=== PATIENT | male | born 1950 | race Two or more races ===

== ENCOUNTER 2018-12-18 12:40 | Inpatient (IN) | payer OTHER ==
--- NOTE | 2018-12-18 12:56 | PDOC ---
Rapid Medical Evaluation Time Seen by Provider: 12/18/18 12:41 Medical Evaluation: 12/18/18 12:41 CC: chest pain s/p vomiting PE: sternal tenderness. ABD SNTND. Orders: cardiac w/u Patient will proceed to ED for continued evaluation. Discharge Disposition - Diagnosis Chest pain - Referrals - Patient Instructions - Post Discharge Activity
--- NOTE | 2018-12-18 13:51 | PDOC ---
History of Present Illness - General Chief Complaint: Chest Pain Stated Complaint: CHEST PAIN/ ABD PAIN Time Seen by Provider: 12/18/18 12:41 - History of Present Illness Initial Comments: 12/18/18 14:38 68 y/o M hx of HTN, HLD, gastritis s/p prostate biopsy yesterday presents to the ED today with chest pain and epigastric pain. He began having chest pain yesterday after his biopsy. Pain is located in the center of his chest and is non-radiating. Pt rates pain as 9/10. Pain was relieved with tylenol at home. He had one episode of non-bilious, non-bloody emesis this morning followed by epigastric burning pain. He was seen by his PCP who found him to be tachycardic and sent him to the ED. He denies any fevers, pleuritic chest pain, shortness of breath, hx of blood clots, recent long travel, palpitations, diaphoresis. He endorses malaise and general sensation of weakness. 12/26/18 09:47 Past History - Past Medical History Allergies/Adverse Reactions: Allergies Allergy/AdvReac Type Severity Reaction Status Date / Time No Known Allergies Allergy Verified 12/18/18 12:58 Home Medications: Ambulatory Orders Pravastatin Sodium [Pravachol -] 40 mg PO HS 12/18/18 Finasteride [Proscar -] 5 mg PO DAILY #30 tablet 12/24/18 Hydrochlorothiazide [Hctz -] 12.5 mg PO DAILY cap 12/24/18 Tamsulosin HCl [Flomax -] 0.4 mg PO BID@0830,2200 #60 cap.er.24h 12/24/18 COPD: No HTN: Yes Hypercholesterolemia: Yes Other medical history: BHP - Psycho Social/Smoking Cessation Hx Smoking History: Never smoked Have you smoked in the past 12 months: No Information on smoking cessation initiated: No Hx Alcohol Use: No Drug/Substance Use Hx: No Review of Systems - Review of Systems Constitutional: Yes: Chills. No: Fever HEENTM: No: Eye Pain Respiratory: No: Cough, Shortness of Breath Cardiac (ROS): Yes: Symptoms Reported ABD/GI: No: Blood Streaked Bowels, Diarrhea Musculoskeletal: Yes: Back Pain *Physical Exam - Vital Signs Last Vital Signs Temp Pulse Resp BP Pulse Ox 98.2 F 130 H 19 107/59 L 100 12/18/18 12:52 12/18/18 12:52 12/18/18 12:52 12/18/18 12:52 12/18/18 12:52 - Physical Exam Comments: 12/18/18 14:56 GENERAL: Awake, alert, and fully oriented, in no acute distress HEAD: No signs of trauma, normocephalic, atraumatic EYES: PERRLA, EOMI, sclera anicteric, conjunctiva clear ENT: Auricles normal inspection, hearing grossly normal, nares patent, oropharynx clear without exudates. Moist mucosa NECK: Normal ROM, supple, no lymphadenopathy, JVD, or masses LUNGS: No distress, speaks full sentences, clear to auscultation bilaterally HEART: tachycardic, normal S1 and S2, no murmurs, rubs or gallops, peripheral pulses normal and equal bilaterally. increased tenderness with palpation of the sternum. ABDOMEN: Soft, epigastric and suprapubic tenderness, normoactive bowel sounds. No guarding, no rebound. No masses EXTREMITIES : Normal inspection, Normal range of motion, no edema. No clubbing or cyanosis NEUROLOGICAL: Cranial nerves II through XII grossly intact. Normal speech, normal gait, no focal sensorimotor deficits SKIN: Warm, Dry, normal turgor, no rashes or lesions noted ED Treatment Course - LABORATORY CBC & Chemistry Diagram: 12/26/18 08:10 12/26/18 08:10 Medical Decision Making - Medical Decision Making 12/18/18 14:53 68 y/o M hx of HTN, HLD, gastritis s/p prostate biopsy yesterday presents to the ED today with chest pain and epigastric pain. EKG, cbc, cmp, blood cultures, chest x-ray, cardiac profile. ekg sinus tachycardia, possible left atrial enlargement. no ST elevations. 12/18/18 15:08 rectal temp 101.1F tylenol for pain, septic workup 12/18/18 15:08 12/18/18 16:11 CXR normal sized heart tortouous aortic arch lungs clear of infiltrates no pneumothorax. impression: normal study -Lactic acid pending. pt. currently receiving iv fluids 30cc/kg - Received Zosyn - HR currently at 115 12/18/18 16:33 Labs remarkable for lactic acid 2.3 ua: leukocyte esterase 2+ creatinine 1.9 -pt admitted for inpatient treatment 12/26/18 09:45 Discharge - Discharge Information Problems reviewed: Yes Clinical Impression/Diagnosis: Chest pain Qualifiers: Chest pain type: unspecified Qualified Code(s): R07.9 - Chest pain, unspecified Condition: Improved - Follow up/Referral - Patient Discharge Instructions - Post Discharge Activity
[2018-12-18 14:31] LABS: BASO % 0.3 % (0-2.0); EOS % 0.1 % (0-4.5); HEMATOCRIT 37.4 % (35.4-49); HEMOGLOBIN 12.3 GM/dL (11.7-16.9); LYMPH % 1.7 % (8-40); MCH 26.1 pg (25.7-33.7); MCHC 32.8 g/dl (32.0-35.9); MEAN CELL VOLUME 79.4 fl (80-96); MEAN PLT VOLUME 8.6 fl (7.5-11.1); MONO % 2.3 % (3.8-10.2); NEUT % 95.6 % (42.8-82.8); PLATELET COUNT 230 K/MM3 (134-434); RBC 4.71 M/mm3 (4.00-5.60); RDW 14.8 % (11.9-15.9)
--- NOTE | 2018-12-18 14:42 | PDOC ---
Documentation entered by Alexandria Bell SCRIBE, acting as scribe for Elmo Piña MD. Elmo Piña MD: This documentation has been prepared by the Arabella armstrong Adrianna, SCRIBE, under my direction and personally reviewed by me in its entirety. I confirm that the documentation accurately reflects all work, treatment, procedures, and medical decision making performed by me. Attending Attestation - Resident Resident Name: AshleyJjgirmaalyson - ED Attending Attestation I have performed the following: I have examined & evaluated the patient, The case was reviewed & discussed with the resident, I agree w/resident's findings & plan, Exceptions are as noted - HPI HPI: The patient is a 68 year old male, with a significant PMH of hypercholesterolemia, hypertension, and gastritis (s/p prostate biopsy yesterday ), who presents to the ED for evaluation of chest pain for 2 days. Patient notes he developed retrosternal chest pain yesterday after his procedure. His pain does not radiate, is unaffected by inspiration, and is exacerbated with palpation (no pleuritic or exertional component). Patient reports one episodes of nausea and NBNB vomit this morning, followed by epigastric pain. He followed up with his PCP for this complaint, where he was found to be tachycardic and was sent to the ED for further evaluation. Patient endorses malaise, weakness, chills, and moderate dysuria. Denies fever, SOB, diarrhea. Allergies: NKA, NKDA Surgical History: Transurethral resection Social History: Denies EtOH, tobacco, or illicit drug use PCP: Dr. Bass - Physicial Exam PE: Vitals: Triage Vital signs reviewed General Appearance: no acute distress, well nourished well developed, Chest Wall: +Reproducible chest wall tenderness to palpation, Cardiac: +Tachycardic. Regular rhythm, no murmurs, no rubs, no gallops, Lungs: Clear to auscultation bilateral, good air movement bilaterally, Abdomen: Soft, nondistended, nontender to palpation Extremities: Full range of motion to all extremities, no cyanosis, clubbing, or edema Skin: Warm and dry, no rashes or lesions, no petechiae Neuro: AOX3; Cranial Nerves 2-12 grossly c intact, Strength intact to all extremities, Sensation intact to all extremities, Psych: normal mood, normal affect - Medical Decision Making 68 year old male, with history of hypercholesterolemia, hypertension, and gastritis (s/p prostate biopsy yesterday), presents with chest pain. Plan: cbc, cmp, blood cultures, cardiac profile, EKG, CXR. Administer fluids. Reassess. 12/18/18 17:01 Patient presents with sepsis likely secondary to UTI from prostate biopsy yesterday Zosyn ordered 30 cc/kg ordered lactic ordered will admit to medicine for further management. Heart Score/ECG Review - ECG Impressions Comment:: EKG performed at 12:35:20 demonstrates rate of 121bpm, sinus tachycardia, possible left atrial enlargement. ED Treatment Course - LABORATORY CBC & Chemistry Diagram: 12/18/18 13:59 12/18/18 13:59 - ADDITIONAL ORDERS Additional order review: Laboratory Results 12/18/18 12/18/18 12/18/18 13:59 13:59 13:59 PT with INR 14.30 H INR 1.21 H Sodium 140 Potassium 4.0 Chloride 105 Carbon Dioxide 26 Anion Gap 9 BUN 29.4 H Creatinine 1.9 H Est GFR (CKD-EPI)AfAm 40.50 Est GFR (CKD-EPI)NonAf 34.94 Random Glucose 103 Calcium 9.0 Magnesium 1.9 Total Bilirubin 0.5 AST 63 H ALT 69 H Alkaline Phosphatase 70 Creatine Kinase 119 Troponin I < 0.02 Total Protein 7.1 Albumin 3.8 Lipase 151 12/18/18 13:59 RBC 4.71 MCV 79.4 L MCHC 32.8 RDW 14.8 MPV 8.6 Neutrophils % 95.6 H Lymphocytes % 1.7 L Monocytes % 2.3 L Eosinophils % 0.1 Basophils % 0.3 - RADIOLOGY Radiograph Interpretation: EXAM#: TYPE/EXAM: RESULT: [id number] RAD/CHEST PA LAT Chest PA and lateral HISTORY: Chest pain IMPRESSION: Normal study. Reported By: Pan Cummings MD 12/18/18 15:25 - Medications Given in the ED: ED Medications Discontinued Medications Generic Name Dose Route Start Last Admin Trade Name Freq PRN Reason Stop Dose Admin Acetaminophen 1,000 mg 12/18/18 15:09 12/18/18 15:18 Ofirmev Injection - IVPB 12/18/18 15:10 1,000 mg ONCE ONE Administration
[2018-12-18 14:53] LABS: INR 1.21 (0.83-1.09); PROTHROMBIN TIME (PATIENT) 14.3 SEC (9.7-13.0)
[2018-12-18 14:59] LABS: ALBUMIN 3.8 g/dl (3.4-5.0); BILIRUBIN,TOTAL 0.5 mg/dL (0.2-1); BLOOD UREA NITROGEN 29.4 mg/dL (7-18); CREATININE 1.9 mg/dL (0.55-1.3); MAGNESIUM 1.9 mg/dL (1.8-2.4); TOT PROT 7.1 g/dl (6.4-8.2)
[2018-12-18] MEDS ORDERED: SODIUM CHLORIDE 2,177 ML IV ONE (15:01)
[2018-12-18] MEDS ORDERED: PIPERACILLIN/TAZOB 3.375 GM 3.375 GM in DEXTROSE 5%-WATER - 50 ML IVPB ONE (15:03)
[2018-12-18] MEDS ORDERED: ACETAMINOPHEN 1000 MG/100 ML VIAL (NON FORMULARY) IVPB ONE (15:09)
[2018-12-18] MEDS ORDERED: PIPERACILLIN/TAZOB 3.375 GM 3.375 GM/50 ML BAG IVPB ONE (15:18)
[2018-12-18] MEDS ORDERED: ACETAMINOPHEN INJECTION 100 ML IVPB ONE (15:18)
[2018-12-18 15:46] LABS: ANISOCYTOSIS 0; MACROCYTOSIS 0; PLATELET ESTIMATE NORMAL
[2018-12-18 16:13] LABS: EPI CELLS 6.3 /HPF (0-5/HPF); HYALINE CASTS 30 /lpf (0-8); URINE APPEARANCE CLOUDY; URINE BACTERIA 8.4 /hpf (NEGATIVE); URINE BILIRUBIN 1+ (NEGATIVE); URINE COLOR DK YELLOW; URINE GLUCOSE (UA) NEGATIVE (NEGATIVE); URINE KETONE TRACE (NEGATIVE); URINE LEUK ESTERASE 2+ (NEGATIVE); URINE NITRITE NEGATIVE (NEGATIVE); URINE PROTEIN 1+ (NEGATIVE); URINE RBC 131 /hpf (0-4); URINE UROBILINOGEN 0.2 mg/dL (0.2-1.0); URINE WBC 48 /hpf (0-5)
--- NOTE | 2018-12-18 17:16 | HP ---
Addendum entered and electronically signed by Silvestre Quinn, RESIDENT 12/18/18 21:03: ADDENDUM: ECG reviewed at time of admission: NSR @121bpm, normal axis, delayed R -wave progression, no TWI, no FERNANDO/STD. QTc 448ms CXR also reviewed Original Note: <Silvestre Quinn - Last Filed: 12/18/18 20:55> CHIEF COMPLAINT: Chills PCP: Dr. Dmitri Lema HISTORY OF PRESENT ILLNESS: 68yo M with h/o of HTN, HLD, and recent prostate biopsy (unknown reasoning reported by patient; poor memory of who performed) who presents today with 1 day of worsening chills and back pain. Pt reports he was in his usual state of health 2 days prior. Since his biopsy he developed severe chills without any recorded fevers. He started to develop back pain R>L and sought further investigation in the ER at this point. Pt reports he was given post-procedure antibiotics (which he has at bedside) which compromises of Bactrim and Flagyl. He took his first dose of both prior to the onset of symptoms. Pt denies any trouble with urination and denies any dysuria, but has been experiencing polyuria. Pt denies any cough, shortness of breath, chest pain, palpitations, abdominal pain, dysuria, hematuria, diarrhea/constipation, lower extremity edema. Of note, pt does not remember his home medications, however reports he takes one pill daily for HTN and one pill daily for cholesterol. He reports his is coming with his medications at time of exam. PAST MEDICAL HISTORY: As above PAST SURGICAL HISTORY: Prostate biopsy (12/17) Social History: Smoking: Denies Alcohol: Denies Drugs: Denies Lives at home with ; independent in ADLs Family History: No history of prostate Ca Allergies No Known Allergies Allergy (Verified 12/18/18 12:58) HOME MEDICATIONS: REVIEW OF SYSTEMS As per HPI PHYSICAL EXAMINATION Vital Signs - 24 hr 12/18/18 12/18/18 12:52 15:56 Temperature 98.2 F Pulse Rate 130 H Pulse Rate [ 117 H Apical] Respiratory 19 16 Rate Blood Pressure 107/59 L Blood Pressure 107/62 [Right Arm] O2 Sat by Pulse 100 100 Oximetry (%) GENERAL: Awake, alert, and fully oriented, in no acute distress. HEENT: NC/AT, EOMI, AYAN, sclera anicteric, MMM NECK: No JVD. LUNGS: CTA bilaterally. No wheezes, and no crackles. No accessory muscle use. On RA HEART: Tachycardic with regular rhythm, normal S1 and S2 without murmur ABDOMEN: Soft, nondistended, slight suprapubic tenderness, normoactive bowel sounds, no guarding, No hepatomegaly RECTAL: No hemorrhoids or fissures appreciated, no masses, slight prostate enlargment without nodules appreciated and nontender MUSCULOSKELETAL: + CVA tenderness. EXTREMITIES: 2+ pulses, warm, well-perfused. No calf tenderness. No peripheral edema. PSYCHIATRIC: Cooperative. Good eye contact. Appropriate mood and affect. SKIN: Warm, dry, no rashes or lesions noted, normal capillary refill. Laboratory Results - last 24 hr 12/18/18 12/18/18 12/18/18 13:59 13:59 13:59 WBC 19.0 H RBC 4.71 Hgb 12.3 Hct 37.4 MCV 79.4 L MCH 26.1 MCHC 32.8 RDW 14.8 Plt Count 230 MPV 8.6 Absolute Neuts (auto) 18.2 H Neutrophils % 95.6 H Neutrophils % (Manual) 93.0 H Band Neutrophils % 0.0 Lymphocytes % 1.7 L Lymphocytes % (Manual) 3.0 L Monocytes % 2.3 L Monocytes % (Manual) 1 L Eosinophils % 0.1 Eosinophils % (Manual) 0.0 Basophils % 0.3 Basophils % (Manual) 1.0 Myelocytes % (Man) 0 Promyelocytes % (Man) 0 Blast Cells % (Manual) 0 Nucleated RBC % 0 Metamyelocytes 0 Hypochromia 0 Platelet Estimate Normal Polychromasia 0 Poikilocytosis 0 Anisocytosis 0 Microcytosis 0 Macrocytosis 0 PT with INR INR Sodium 140 Potassium 4.0 Chloride 105 Carbon Dioxide 26 Anion Gap 9 BUN 29.4 H Creatinine 1.9 H Est GFR (CKD-EPI)AfAm 40.50 Est GFR (CKD-EPI)NonAf 34.94 Random Glucose 103 Lactic Acid Calcium 9.0 Magnesium 1.9 Total Bilirubin 0.5 AST 63 H ALT 69 H Alkaline Phosphatase 70 Creatine Kinase 119 Troponin I < 0.02 Total Protein 7.1 Albumin 3.8 Lipase 151 Urine Color Urine Appearance Urine pH Ur Specific [place] Urine Protein Urine Glucose (UA) Urine Ketones Urine Blood Urine Nitrite Urine Bilirubin Urine Urobilinogen Ur Leukocyte Esterase Urine WBC (Auto) Urine RBC (Auto) Urine Casts (Auto) U Epithel Cells (Auto) U Sm Round Cell (Auto) Urine Bacteria (Auto) 12/18/18 12/18/18 12/18/18 13:59 15:31 15:52 WBC RBC Hgb Hct MCV MCH MCHC RDW Plt Count MPV Absolute Neuts (auto) Neutrophils % Neutrophils % (Manual) Band Neutrophils % Lymphocytes % Lymphocytes % (Manual) Monocytes % Monocytes % (Manual) Eosinophils % Eosinophils % (Manual) Basophils % Basophils % (Manual) Myelocytes % (Man) Promyelocytes % (Man) Blast Cells % (Manual) Nucleated RBC % Metamyelocytes Hypochromia Platelet Estimate Polychromasia Poikilocytosis Anisocytosis Microcytosis Macrocytosis PT with INR 14.30 H INR 1.21 H Sodium Potassium Chloride Carbon Dioxide Anion Gap BUN Creatinine Est GFR (CKD-EPI)AfAm Est GFR (CKD-EPI)NonAf Random Glucose Lactic Acid 2.3 H* Calcium Magnesium Total Bilirubin AST ALT Alkaline Phosphatase Creatine Kinase Troponin I Total Protein Albumin Lipase Urine Color Dk yellow Urine Appearance Cloudy Urine pH 7.0 Ur Specific [place] 1.019 Urine Protein 1+ H Urine Glucose (UA) Negative Urine Ketones Trace H Urine Blood 2+ H Urine Nitrite Negative Urine Bilirubin 1+ H Urine Urobilinogen 0.2 Ur Leukocyte Esterase 2+ H Urine WBC (Auto) 48 Urine RBC (Auto) 131 Urine Casts (Auto) 30 U Epithel Cells (Auto) 6.3 U Sm Round Cell (Auto) Urine Bacteria (Auto) 8.4 ASSESSMENT/PLAN: Severe sepsis 2/2 to pyelonephritis R/o Prostatitis Acute kidney injury Lactic acidosis Mild Transaminitis HTN HLD --Due to recent prostate biopsy and Bactrim/Flagyl use will cover with Meropenem until ID consultation --CrCl 37 so 1gm q12h for acute complicated pyelonephritis --Obtain CT A/P without contrast for r/o any prostate abnormalities vs. abscess (unable to use contrast due to MADISYN) --IVF: LR@100cc/hr after 30cc/kg/hr bolus; can bolus as needed --Trend lactate until normal --ID consultation ordered --Urology consulted --MADISYN possibly multifactorial with Bactrim use and heavily with pre-renal azotemia --Urine studies ordered --Will evaluate for hydronephrosis/obstructive changes with CT scan --Transaminitis possibly due to drug interactions however will trend --Will hold HLD medication at this point --Hold antihypertensives for now Patient is getting his medications from his and will input the medications later: takes one pill for HTN and one pill for cholesterol FEN: Fluids: - LR@100cc/hr bolus PRN Electrolyte abnormalities: None currently Nutrition: Cholesterol and Na controlled diet PPX: DVT - Heparin TID GI - Not indicated Dispo: Admit M/S Case discussed with ER physicians Silvestre Quinn, - IM PGY-3 Visit type - Emergency Visit Emergency Visit: Yes ED Registration Date: 12/18/18 Care time: The patient presented to the Emergency Department on the above date and was hospitalized for further evaluation of their emergent condition. - New Patient This patient is new to me today: Yes Date on this admission: 12/18/18 - Critical Care Critical Care patient: No ATTENDING PHYSICIAN STATEMENT I saw and evaluated the patient. I reviewed the resident's note and discussed the case with the resident. I agree with the resident's findings and plan as documented. SUBJECTIVE: OBJECTIVE: ASSESSMENT AND PLAN: <Gordon Jackson - Last Filed: 12/19/18 13:19> Seen and examined; agree with resident history and physical as documented aside from as supplemented below. Independently verified all historical and PE findings; independently reviewed all labs and vitals. He meets inpatient criteria. 60 minutes spent in this encounter including ongoing discussion with the resident. Has ongoing pelvic pain and is s/p prostate biopsy. Sepsis likely secondary to urinary source is evident with positive UA and thickened bladder. He has ongoing BPH, but was unsure who did the bx as well as the indication. Hasn't seen anyone else for this, nothing makes it better or worse, main meds help his pain briefly but it returns. 10 sys ROS done and negative aside from HPI PMH, PSH, FH, SH reviewed FH negative for anesthesia intolerance or sudden cardiac O: VS, labs, imaging all idependently reviewed Mild distress, diaphoretic, in bed NC AT EOMI PERRLA Trachea midline, no neck masses Tachycardic, no tennille murmurs NT ND +BS CN2-12 wnl, no fnd Normal mood, appropriate behavior EKG reviewed CT done without contrast 2/2 MADISYN; can consider contrasted study when results available A/P: Patient presents with severe sepsis secondary to urinary source; he is at risk for resistant organisms due to recent instrumentation. He is critically ill due to this. Problems include: -Sepsis secondary to urinary source with recent instrumentation to prostate, r/ o prostatitis -MADISYN -Thickened urinary bladder -Underlying BPH -Transaminitis -Hx HTN -Hx HLD -Lactic Acidosis (resolving) Agressive isotonic fluids with broad spectrum abx and ID consult/uro consult Low threshold to upgrade LOC Trend down lactate Hold home antihypertensives Bladderscan and mistry if needed ATTENDING PHYSICIAN STATEMENT I saw and evaluated the patient. I reviewed the resident's note and discussed the case with the resident. I agree with the resident's findings and plan as documented. SUBJECTIVE: OBJECTIVE: ASSESSMENT AND PLAN:
[2018-12-18] MEDS ORDERED: MEROPENEM 1 GM in DEXTROSE 5%-WATER 100 ML IVPB SCH (17:45)
[2018-12-18] MEDS ORDERED: ACETAMINOPHEN 325 MG TABLET (FP) PO PRN (17:55)
[2018-12-18] MEDS: LACTATED RINGERS SOLUTION 1,000 ML/1,000 ML INFUS.BAG IV SCH ×2 (19:34→23:44)
[2018-12-18] MEDS: MEROPENEM 1 GM in DEXTROSE 5%-WATER 100 ML IVPB SCH (20:29)
[2018-12-18] MEDS ORDERED: LACTATED RINGERS SOLUTION 1,000 ML/1,000 ML INFUS.BAG IV SCH (21:15)
[2018-12-18] MEDS ORDERED: ACETAMINOPHEN 1000 MG/100 ML VIAL (NON FORMULARY) IVPB PRN (22:31)
[2018-12-18] MEDS ORDERED: SODIUM CHLORIDE 1,000 ML IV STA (22:35)
[2018-12-18] MEDS: HEPARIN NA (PORCINE) 5,000 UNITS/ML 1ML VIAL SQ SCH (22:56)
[2018-12-18] MEDS ORDERED: LACTATED RINGERS SOLUTION 1,000 ML/1,000 ML INFUS.BAG IV ONE (23:42)
[2018-12-18] MEDS ORDERED: LACTATED RINGERS SOLUTION 1000 ML INFUS.BAG IV ONE (23:50)
[2018-12-19 05:23] VITALS: BMI 28.5
[2018-12-19] MEDS ORDERED: DEXTROSE 5%-WATER 100 ML IVPB ONE (06:31)
[2018-12-19] MEDS ORDERED: MEROPENEM 1 GM VIAL (RESTRICTED TO ID) IVPB ONE (06:31)
[2018-12-19] MEDS: HEPARIN NA (PORCINE) 5,000 UNITS/ML 1ML VIAL SQ SCH ×3 (06:33→22:06)
[2018-12-19] MEDS: MEROPENEM 1 GM in DEXTROSE 5%-WATER 100 ML IVPB SCH (06:33)
[2018-12-19 07:59] LABS: BASO % 0.2 % (0-2.0); HEMATOCRIT 32.3 % (35.4-49); HEMOGLOBIN 10.8 GM/dL (11.7-16.9); LYMPH % 4.5 % (8-40); MCH 26.2 pg (25.7-33.7); MCHC 33.4 g/dl (32.0-35.9); MEAN CELL VOLUME 78.5 fl (80-96); MEAN PLT VOLUME 8.4 fl (7.5-11.1); MONO % 4.4 % (3.8-10.2); NEUT % 90.9 % (42.8-82.8); PLATELET COUNT 193 K/MM3 (134-434); RBC 4.12 M/mm3 (4.00-5.60); RDW 14.8 % (11.9-15.9); WHITE BLOOD COUNT 16.2 K/mm3 (4.0-10.0)
[2018-12-19 08:27] LABS: BILIRUBIN,TOTAL 0.5 mg/dL (0.2-1); BLOOD UREA NITROGEN 21.5 mg/dL (7-18); CALCIUM 8.4 mg/dL (8.5-10.1); CREATININE 1.3 mg/dL (0.55-1.3); MAGNESIUM 1.7 mg/dL (1.8-2.4); PHOSPHOROUS 2.6 mg/dL (2.5-4.9); POTASSIUM 3.7 mmol/L (3.5-5.1); TOT PROT 5.9 g/dl (6.4-8.2)
[2018-12-19] MEDS ORDERED: TAMSULOSIN HCL 0.4 MG CAP PO SCH (08:30)
--- NOTE | 2018-12-19 08:39 | PN ---
Addendum entered and electronically signed by Silvestre Quinn, RESIDENT 12/19/18 11:09: EDIT: Hypomagnesemia on labs today: repleted 800 Mag-Ox PO once Original Note: Progress Note (short form) - Note Progress Note: HPI: Pt febrile last night with 500cc boluses as needed for soft pressures. Pt today awake and alert reports feeling better and denies any rigors or chills. Denies any shortness of breath, chest pain, palpitations. Endorses slight superpubic pain Vital Signs Temperature 99.7 F H 12/19/18 10:33 Pulse Rate 108 H 12/19/18 10:33 Respiratory Rate 18 12/19/18 10:33 Blood Pressure 126/77 12/19/18 10:33 O2 Sat by Pulse Oximetry (%) 94 L 12/19/18 09:00 GENERAL: Awake, alert, and fully oriented, in no acute distress. HEENT: NC/AT, EOMI, AYAN, sclera anicteric, MMM NECK: No JVD. LUNGS: CTA bilaterally. No wheezes, and no crackles. No accessory muscle use. On RA HEART: Tachycardic with regular rhythm, normal S1 and S2 without murmur ABDOMEN: Soft, nondistended, slight suprapubic tenderness, normoactive bowel sounds, no guarding, No hepatomegaly MUSCULOSKELETAL: + CVA tenderness. EXTREMITIES: 2+ pulses, warm, well-perfused. No calf tenderness. No peripheral edema. PSYCHIATRIC: Cooperative. Good eye contact. Appropriate mood and affect. SKIN: Warm, dry, no rashes or lesions noted, normal capillary refill. Microbiology 12/18/18 15:52 Urine - Urine Clean Catch Urine Culture - Preliminary Lactose Fermenting Neg Bacilli 12/18/18 15:31 Blood - Peripheral Venous Blood Culture - Preliminary Pending Organism Active Medications Heparin Sodium (Porcine) (Heparin -) 5,000 unit SQ TID JAYLA Last Admin: 12/19/18 06:33 Dose: 5,000 unit Lactated Ringer's (Lactated Ringers Solution) 1,000 ml in 1,000 mls @ 100 mls/ hr IV ASDIR JAYLA Last Admin: 12/18/18 23:44 Dose: 100 mls/hr Meropenem 1 gm/ Dextrose 100 mls @ 200 mls/hr IVPB Q12H JAYLA Pantoprazole Sodium (Protonix -) 20 mg PO DAILY [facility] Last Admin: 12/19/18 10:17 Dose: 20 mg Tamsulosin HCl (Flomax -) 0.4 mg PO DAILY@0830 [facility] Last Admin: 12/19/18 09:00 Dose: 0.4 mg A/P: Severe sepsis 2/2 Prostatitis (improving) Gram negative bacteremia Acute kidney injury (improving) Lactic acidosis (resolving) Mild Transaminitis HTN HLD --Gram negative bacilli growing in BCx --Meropenem on board originally dose adjusted for initial CrCl --ID consult appreciated --LR@100cc/hr; bolus PRN --Lactic acid resolving --CT A/P reviewed: edema around prostate (? if partially due to recent procedure ) and thickened bladder wall without hydronephrosis noted --Urology consult appreciated --MADISYN resolving currently with fluid: likely prerenal azotemia 2/2 to infection --Urine studies resolved --Transaminitis noted to be due to fatty liver disease as seen on CT --Continue holding statin and anti-hypertensives --Can restart hemodynamics allowing FEN: Fluids: - LR@100cc/hr bolus PRN Electrolyte abnormalities: None currently Nutrition: Cholesterol and Na controlled diet PPX: DVT - Heparin TID GI - Not indicated Dispo: Awaiting culture sensitivities. Case discussed with Dr. Manuel Quinn, DO - IM PGY-3 <Silvestre Quinn - Last Filed: 12/19/18 11:06> - Note Progress Note: Seen and examined; agree with resident history and physical as documented aside from as supplemented below. Independently verified all historical and PE findings; independently reviewed all labs and vitals. He meets inpatient criteria. 60 minutes spent in this encounter including ongoing discussion with the resident. Pain is improved with downtrending lactate; denies nausea, vomitting, CP, SOB. Tachycardia improved. 10 sys ROS done and negative aside from HPI O: VS, labs, imaging all idependently reviewed Mild distress, diaphoretic, in bed NC AT EOMI PERRLA Trachea midline, no neck masses Tachycardic, no tennille murmurs NT ND +BS CN2-12 wnl, no fnd Normal mood, appropriate behavior EKG reviewed CT done without contrast 2/2 MADISYN; can consider contrasted study when results available A/P: Patient presents with severe sepsis secondary to urinary source; he is at risk for resistant organisms due to recent instrumentation. He is critically ill due to this. Problems include: -Sepsis secondary to urinary source with recent instrumentation to prostate, r/ o prostatitis -Gram negative bacteremia -MADISYN -Thickened urinary bladder -Underlying BPH -Transaminitis -Hx HTN -Hx HLD -Lactic Acidosis (resolved) Followup subspecialty consults; appreciate expert care Increased tams and added finasteride Trend CMP consult GI if needed <Gordon Jackson - Last Filed: 12/19/18 13:23>
[2018-12-19] MEDS ORDERED: MAGNESIUM OXIDE 400 MG TABLET (FP) PO ONE (09:30)
--- NOTE | 2018-12-19 09:55 | EKG ---
Test Reason : Blood Pressure : / mmHG Vent. Rate : 121 BPM Atrial Rate : 121 BPM P-R Int : 128 ms QRS Dur : 070 ms QT Int : 316 ms P-R-T Axes : 047 -15 045 degrees QTc Int : 448 ms SINUS TACHYCARDIA POSSIBLE LEFT ATRIAL ENLARGEMENT BORDERLINE ECG NO PREVIOUS ECGS AVAILABLE Confirmed by SHRUTHI WHARTON, NASIM ([id number]) on 12/19/2018 9:54:47 AM Referred By: Confirmed By:NASIM HAWKINS MD
--- NOTE | 2018-12-19 10:11 | CONSULT ---
Consultation: REQUESTING PROVIDER: Dr. Quinn CONSULT REQUEST: We have been asked to medically evaluate this patient for MADISYN. HISTORY OF PRESENT ILLNESS: Pt. is a 68 y.o. M w/ PMHx. of HTN, HLD, BPH, and GERD presenting s/p prostate biopsy with chills. Pt. states that on 12/17 he had the biopsy and was given antibiotics (Flagyl and Bactrim) which he took. The patient then developed chills the next day and came to the ER where he had one episode of NBNB emesis ("a lot"). Pt. developed non-radiating sub-sternal chest pain reproducible on contact on 12/17; has since gotten slightly better. Pt. denies diarrhea but endorses have 5 bowel movements yesterday. Pt. endorses increased pressure behind the eyes without headache and increased frequency of urination. Pt. states he has back pain along his spine but was non-specific in describing the pain. Pt. denies any history of ever having a UTI. Pt. denies shortness of breath, hematuria, dysuria, constipation or current nausea. REVIEW OF SYSTEMS: CONSTITUTIONAL: fever, chills, Absent: diaphoresis, generalized weakness, malaise, loss of appetite, weight change HEENT: eye pain Absent: rhinorrhea, nasal congestion, throat pain, throat swelling, difficulty swallowing, mouth swelling, , ear pain, visual changes CARDIOVASCULAR: chest pain Absent: syncope, palpitations, irregular heart rate, lightheadedness, peripheral edema RESPIRATORY: Absent: cough, shortness of breath, dyspnea with exertion, orthopnea, wheezing, stridor, hemoptysis GASTROINTESTINAL: abdominal pain, vomiting (one episode) Absent: abdominal distension, nausea, diarrhea, constipation, melena, hematochezia GENITOURINARY: frequency on presentation but no longer Absent: dysuria, urgency, hesitancy, hematuria, flank pain, genital pain MUSCULOSKELETAL: back pain Absent: myalgia, arthralgia, joint swelling,neck pain SKIN: Absent: rash, itching, pallor HEMATOLOGIC/IMMUNOLOGIC: Absent: easy bleeding, easy bruising, lymphadenopathy, frequent infections ENDOCRINE: Absent: unexplained weight gain, unexplained weight loss, heat intolerance, cold intolerance NEUROLOGIC: Absent: headache, focal weakness or paresthesias, dizziness, unsteady gait, seizure, mental status changes, bladder or bowel incontinence PSYCHIATRIC: Absent: anxiety, depression, suicidal or homicidal ideation, hallucinations. PHYSICAL EXAMINATION Vital Signs - 24 hr 12/18/18 12/18/18 12/18/18 12:52 15:56 16:00 Temperature 98.2 F Pulse Rate 130 H Pulse Rate [ 117 H 108 H Apical] Respiratory 19 16 16 Rate Blood Pressure 107/59 L Blood Pressure 107/62 101/72 [Right Arm] O2 Sat by Pulse 100 100 100 Oximetry (%) 12/18/18 12/18/18 12/18/18 17:00 18:55 21:00 Temperature 97.9 F Pulse Rate Pulse Rate [ 82 85 Apical] Respiratory 16 16 Rate Blood Pressure Blood Pressure 95/60 103/58 L [Right Arm] O2 Sat by Pulse 100 100 94 L Oximetry (%) 12/18/18 12/18/18 12/18/18 21:05 22:00 22:32 Temperature 102.9 F H 99.6 F Pulse Rate 125 H 122 H Pulse Rate [ Apical] Respiratory 24 H 22 H Rate Blood Pressure 98/51 L 99/54 L Blood Pressure [Right Arm] O2 Sat by Pulse 94 L Oximetry (%) 12/18/18 12/19/18 12/19/18 23:41 02:00 03:54 Temperature 98.4 F 100.3 F H 99.2 F Pulse Rate 112 H 111 H 112 H Pulse Rate [ Apical] Respiratory 20 20 20 Rate Blood Pressure 113/63 98/52 L 123/73 Blood Pressure [Right Arm] O2 Sat by Pulse Oximetry (%) 12/19/18 07:00 Temperature 99.1 F Pulse Rate 112 H Pulse Rate [ Apical] Respiratory 20 Rate Blood Pressure 133/73 Blood Pressure [Right Arm] O2 Sat by Pulse Oximetry (%) GENERAL: Awake, alert, oriented, in no acute distress. HEAD: Normal with no signs of trauma. EYES: Extraocular movements intact, sclera anicteric, conjunctiva clear. EARS, NOSE, THROAT: Ears normal, nares patent, oropharynx clear without exudates. Moist mucous membranes. NECK: Normal range of motion, supple without lymphadenopathy, JVD, or masses. LUNGS: Breath sounds equal, clear to auscultation bilaterally. No wheezes, and no crackles. No accessory muscle use. HEART: Regular rate and rhythm, normal S1 and S2 without murmur, center of sternum tender to palpation ABDOMEN: Soft, suprapubic tenderness, not distended, normoactive bowel sounds, no guarding, no rebound MUSCULOSKELETAL: Normal range of motion at all joints. No bony deformities or tenderness. No CVA tenderness. UPPER EXTREMITIES: warm, well-perfused. No cyanosis. No clubbing. Cap refill <2 seconds. No peripheral edema. LOWER EXTREMITIES: 2+ dorsal pedal pulses, warm, well-perfused. No calf tenderness. No peripheral edema. NEUROLOGICAL: Cranial nerves II-XII intact. Normal speech. PSYCHIATRIC: Cooperative. Good eye contact. Appropriate mood and affect. SKIN: Warm, dry, normal turgor, no rashes or lesions noted. Laboratory Results - last 24 hr 12/18/18 12/18/18 12/18/18 13:59 13:59 13:59 WBC 19.0 H RBC 4.71 Hgb 12.3 Hct 37.4 MCV 79.4 L MCH 26.1 MCHC 32.8 RDW 14.8 Plt Count 230 MPV 8.6 Absolute Neuts (auto) 18.2 H Neutrophils % 95.6 H Neutrophils % (Manual) 93.0 H Band Neutrophils % 0.0 Lymphocytes % 1.7 L Lymphocytes % (Manual) 3.0 L Monocytes % 2.3 L Monocytes % (Manual) 1 L Eosinophils % 0.1 Eosinophils % (Manual) 0.0 Basophils % 0.3 Basophils % (Manual) 1.0 Myelocytes % (Man) 0 Promyelocytes % (Man) 0 Blast Cells % (Manual) 0 Nucleated RBC % 0 Metamyelocytes 0 Hypochromia 0 Platelet Estimate Normal Polychromasia 0 Poikilocytosis 0 Anisocytosis 0 Microcytosis 0 Macrocytosis 0 PT with INR INR Sodium 140 Potassium 4.0 Chloride 105 Carbon Dioxide 26 Anion Gap 9 BUN 29.4 H Creatinine 1.9 H Est GFR (CKD-EPI)AfAm 40.50 Est GFR (CKD-EPI)NonAf 34.94 Random Glucose 103 Lactic Acid Calcium 9.0 Phosphorus Magnesium 1.9 Total Bilirubin 0.5 AST 63 H ALT 69 H Alkaline Phosphatase 70 Creatine Kinase 119 Troponin I < 0.02 Total Protein 7.1 Albumin 3.8 Lipase 151 Urine Color Urine Appearance Urine pH Ur Specific [place] Urine Protein Urine Glucose (UA) Urine Ketones Urine Blood Urine Nitrite Urine Bilirubin Urine Urobilinogen Ur Leukocyte Esterase Urine WBC (Auto) Urine RBC (Auto) Urine Casts (Auto) U Epithel Cells (Auto) U Sm Round Cell (Auto) Urine Bacteria (Auto) Ur Random Creatinine Ur Random Urea Nitrogn 12/18/18 12/18/18 12/18/18 13:59 15:31 15:52 WBC RBC Hgb Hct MCV MCH MCHC RDW Plt Count MPV Absolute Neuts (auto) Neutrophils % Neutrophils % (Manual) Band Neutrophils % Lymphocytes % Lymphocytes % (Manual) Monocytes % Monocytes % (Manual) Eosinophils % Eosinophils % (Manual) Basophils % Basophils % (Manual) Myelocytes % (Man) Promyelocytes % (Man) Blast Cells % (Manual) Nucleated RBC % Metamyelocytes Hypochromia Platelet Estimate Polychromasia Poikilocytosis Anisocytosis Microcytosis Macrocytosis PT with INR 14.30 H INR 1.21 H Sodium Potassium Chloride Carbon Dioxide Anion Gap BUN Creatinine Est GFR (CKD-EPI)AfAm Est GFR (CKD-EPI)NonAf Random Glucose Lactic Acid 2.3 H* Calcium Phosphorus Magnesium Total Bilirubin AST ALT Alkaline Phosphatase Creatine Kinase Troponin I Total Protein Albumin Lipase Urine Color Dk yellow Urine Appearance Cloudy Urine pH 7.0 Ur Specific [place] 1.019 Urine Protein 1+ H Urine Glucose (UA) Negative Urine Ketones Trace H Urine Blood 2+ H Urine Nitrite Negative Urine Bilirubin 1+ H Urine Urobilinogen 0.2 Ur Leukocyte Esterase 2+ H Urine WBC (Auto) 48 Urine RBC (Auto) 131 Urine Casts (Auto) 30 U Epithel Cells (Auto) 6.3 U Sm Round Cell (Auto) [employer] Supervisor Urine Bacteria (Auto) 8.4 Ur Random Creatinine Ur Random Urea Nitrogn 12/18/18 12/19/18 12/19/18 18:20 04:50 04:50 WBC RBC Hgb Hct MCV MCH MCHC RDW Plt Count MPV Absolute Neuts (auto) Neutrophils % Neutrophils % (Manual) Band Neutrophils % Lymphocytes % Lymphocytes % (Manual) Monocytes % Monocytes % (Manual) Eosinophils % Eosinophils % (Manual) Basophils % Basophils % (Manual) Myelocytes % (Man) Promyelocytes % (Man) Blast Cells % (Manual) Nucleated RBC % Metamyelocytes Hypochromia Platelet Estimate Polychromasia Poikilocytosis Anisocytosis Microcytosis Macrocytosis PT with INR INR Sodium Potassium Chloride Carbon Dioxide Anion Gap BUN Creatinine Est GFR (CKD-EPI)AfAm Est GFR (CKD-EPI)NonAf Random Glucose Lactic Acid 2.0 Calcium Phosphorus Magnesium Total Bilirubin AST ALT Alkaline Phosphatase Creatine Kinase Troponin I Total Protein Albumin Lipase Urine Color Urine Appearance Urine pH Ur Specific [place] Urine Protein Urine Glucose (UA) Urine Ketones Urine Blood Urine Nitrite Urine Bilirubin Urine Urobilinogen Ur Leukocyte Esterase Urine WBC (Auto) Urine RBC (Auto) Urine Casts (Auto) U Epithel Cells (Auto) U Sm Round Cell (Auto) Urine Bacteria (Auto) Ur Random Creatinine 113.0 Ur Random Urea Nitrogn 618 12/19/18 12/19/18 12/19/18 04:50 07:25 07:25 WBC 16.2 H RBC 4.12 Hgb 10.8 L Hct 32.3 L MCV 78.5 L MCH 26.2 MCHC 33.4 RDW 14.8 Plt Count 193 MPV 8.4 Absolute Neuts (auto) 14.7 H Neutrophils % 90.9 H Neutrophils % (Manual) Band Neutrophils % Lymphocytes % 4.5 L D Lymphocytes % (Manual) Monocytes % 4.4 D Monocytes % (Manual) Eosinophils % 0.0 D Eosinophils % (Manual) Basophils % 0.2 Basophils % (Manual) Myelocytes % (Man) Promyelocytes % (Man) Blast Cells % (Manual) Nucleated RBC % 0 Metamyelocytes Hypochromia Platelet Estimate Polychromasia Poikilocytosis Anisocytosis Microcytosis Macrocytosis PT with INR INR Sodium 139 Potassium 3.7 Chloride 107 Carbon Dioxide 24 Anion Gap 8 BUN 21.5 H Creatinine 1.3 Est GFR (CKD-EPI)AfAm 64.07 Est GFR (CKD-EPI)NonAf 55.28 Random Glucose 122 H Lactic Acid 1.3 Calcium 8.4 L Phosphorus 2.6 Magnesium 1.7 L Total Bilirubin 0.5 AST 60 H ALT 72 H Alkaline Phosphatase 62 Creatine Kinase Troponin I Total Protein 5.9 L Albumin 3.0 L Lipase Urine Color Urine Appearance Urine pH Ur Specific [place] Urine Protein Urine Glucose (UA) Urine Ketones Urine Blood Urine Nitrite Urine Bilirubin Urine Urobilinogen Ur Leukocyte Esterase Urine WBC (Auto) Urine RBC (Auto) Urine Casts (Auto) U Epithel Cells (Auto) U Sm Round Cell (Auto) Urine Bacteria (Auto) Ur Random Creatinine Ur Random Urea Nitrogn Active Medications Home Medications Medication Instructions Recorded Losartan/Hydrochlorothiazide 1 each PO DAILY 12/18/18 [Losartan-Hctz 100-12.5 mg Tab] Omeprazole Magnesium 20 mg PO DAILY 12/18/18 Pravastatin Sodium [Pravachol (Nf)] 40 mg PO HS 12/18/18 Tamsulosin HCl 0.4 mg PO DAILY 12/18/18 Current Medications Heparin Sodium (Porcine) (Heparin -) 5,000 unit SQ TID [facility] Last Admin: 12/19/18 06:33 Dose: 5,000 unit Lactated Ringer's (Lactated Ringers Solution) 1,000 ml in 1,000 mls @ 100 mls/ hr IV ASDIR [facility] Last Admin: 12/18/18 23:44 Dose: 100 mls/hr Meropenem 1 gm/ Dextrose 100 mls @ 200 mls/hr IVPB Q12H [facility] Pantoprazole Sodium (Protonix -) 20 mg PO DAILY [facility] Tamsulosin HCl (Flomax -) 0.4 mg PO DAILY@0830 [facility] ASSESSMENT/PLAN: Pt. is a 68 y.o. M w/ PMHx. of HTN, HLD, BPH, and GERD presenting s/p prostate biopsy with chills. Pt. states that on 12/17 he had the biopsy and was given antibiotics (Flagyl and Bactrim) which he took. #Sepsis 2/2 prostatitis s/p Prostate Biopsy T-Max: 100.3, currently afebrile c/w Merrem, ID consult appreciated (Dr. Gerard) Abdominal CT scan: marked enlarged prostate w/ soft tissue stranding around gland, diffuse bladder wall thickening(unable to say whether acute or chronic) LA: 2.3-->2.0-->1.3 LR @ 100 UA: 1+ protein, 2+ blood, 2+LE, 48 WBCs UCx: growing Gram Neg. rods, awaiting sensitivities #MADISYN- resolved Creatinine: 1.9-->1.3 FEUrea: 33% indicating pre-renal disease Magnesium: 1.7, would repeat in AM #Chest Pain- r/o ACS Pt. documented as poor historian, states that chest pain happened after vomiting but state he vomited yesterday (12/18) EKG appreciated, QTc: 448; NSR @121bpm, normal axis, delayed R-wave progression , no TWI, no FERNANDO/STD Troponin Neg x 1, would suggest trend of at least 2. #HTN Holding home medications - per primary team BP elevated this AM would continue to hold if Pt. to receive rpt. CT scan w/ contrast, can give BB in the interim. #BPH c/w Flowmx #GERD c/w protonix 20mg--> would consider increasing to 40mg given Pt.s symptoms Pain control with Tylenol reccomended #DVT Hep. SQ Dispo: We will continue to follow the patient. Thank you for this consultative opportunity. Visit type - Emergency Visit Emergency Visit: Yes ED Registration Date: 12/18/18 Care time: The patient presented to the Emergency Department on the above date and was hospitalized for further evaluation of their emergent condition. - New Patient This patient is new to me today: Yes Date on this admission: 12/19/18 - Critical Care Critical Care patient: No ATTENDING PHYSICIAN STATEMENT I saw and evaluated the patient. I reviewed the resident's note and discussed the case with the resident. I agree with the resident's findings and plan as documented. SUBJECTIVE: OBJECTIVE: ASSESSMENT AND PLAN:
[2018-12-19] MEDS: PANTOPRAZOLE 20 MG TABLET (FP) PO SCH (10:17)
--- NOTE | 2018-12-19 12:15 | CON.ID ---
Consult Consult Specialty:: infectious diseases Referred by:: hospitalist Reason for Consultation:: uti,bacteremia - History of Present Illness Chief Complaint: abd pain,fevers History of Present Illness: 68yo M with h/o of HTN, HLD, and recent prostate biopsy admitted with 1 day of worsening chills and back pain. Pt reports he was in his usual state of health 2 days prior. Since his biopsy he developed severe chills without any recorded fevers. He started to develop back pain R>L and sought further investigation in the ER at this point. Pt reports he was given post-procedure antibiotics which compromises of Bactrim and Flagyl. He took his first dose of both prior to the onset of symptoms. Pt denies any trouble with urination and denies any dysuria, but has been experiencing polyuria. Pt denies any cough, shortness of breath, chest pain, palpitations, abdominal pain, dysuria, hematuria, diarrhea/ constipation, lower extremity edema. patient was worked up and found to ahve bacteremia as well as uti currently patient feels a bit better and mentions that he does not feel feverish - History Source History Provided By: Patient Limitations to Obtaining History: No Limitations - Alcohol/Substance Use Hx Alcohol Use: No - Smoking History Smoking history: Never smoked Have you smoked in the past 12 months: No Home Medications - Allergies Allergies/Adverse Reactions: Allergies Allergy/AdvReac Type Severity Reaction Status Date / Time No Known Allergies Allergy Verified 12/18/18 12:58 - Home Medications Home Medications: Ambulatory Orders Losartan/Hydrochlorothiazide [Losartan-Hctz 100-12.5 mg Tab] 1 each PO DAILY Omeprazole Magnesium 20 mg PO DAILY 12/18/18 Pravastatin Sodium [Pravachol (Nf)] 40 mg PO HS 12/18/18 Tamsulosin HCl 0.4 mg PO DAILY 12/18/18 Review of Systems - Review of Systems Constitutional: reports: Chills, Fever Eyes: reports: No Symptoms HENT: reports: No Symptoms Neck: reports: No Symptoms Cardiovascular: reports: No Symptoms Respiratory: reports: No Symptoms Gastrointestinal: reports: No Symptoms Musculoskeletal: reports: No Symptoms Integumentary: reports: No Symptoms Neurological: reports: No Symptoms Endocrine: reports: No Symptoms Hematology/Lymphatic: reports: No Symptoms Physical Exam Vital Signs: Vital Signs Temperature 99.7 F H 12/19/18 10:33 Pulse Rate 108 H 12/19/18 10:33 Respiratory Rate 18 12/19/18 10:33 Blood Pressure 126/77 12/19/18 10:33 O2 Sat by Pulse Oximetry (%) 94 L 12/19/18 09:00 Constitutional: Yes: Well Nourished, No Distress, Calm Eyes: Yes: Conjunctiva Clear HENT: Yes: Atraumatic, Normocephalic Neck: Yes: Supple, Trachea Midline Cardiovascular: Yes: Regular Rate and Rhythm Respiratory: Yes: Regular, CTA Bilaterally Gastrointestinal: Yes: Normal Bowel Sounds, Soft Musculoskeletal: Yes: WNL Extremities: Yes: WNL Neurological: Yes: Alert, Oriented Psychiatric: Yes: Alert, Oriented Labs: CBC, BMP 12/19/18 07:25 12/19/18 07:25 Imaging - Results Chest X-ray: Report Reviewed, Image Reviewed Cat Scan: Report Reviewed, Image Reviewed Assessment/Plan A/P: Patient presents with severe sepsis secondary to urinary source; he is at risk for resistant organisms due to recent instrumentation. He is critically ill due to this. Problems include: -Sepsis -MADISYN -gm negative bacteremia -Underlying BPH -Transaminitis -Lactic Acidosis plan will start patient on abx close watch rest as per the team repeat blood cx
[2018-12-19] MEDS ORDERED: DEXTROSE 5%-WATER - 50 ML IVPB ONE ×2 (12:38→17:32)
[2018-12-19] MEDS ORDERED: PIPERACILLIN/TAZOBACTAM 3.375 GM VIAL IVPB ONE ×2 (12:38→17:32)
[2018-12-19] MEDS: PIPERACILLIN/TAZOB 3.375 GM 3.375 GM in DEXTROSE 5%-WATER - 50 ML IVPB SCH ×2 (12:40→18:22)
--- NOTE | 2018-12-19 13:48 | PN ---
Teaching Attending Note Name of Resident: Srinivasan Velasco (Nephrology) ATTENDING PHYSICIAN STATEMENT I saw and evaluated the patient. I reviewed the resident's note and discussed the case with the resident. I agree with the resident's findings and plan as documented. Renal Pt is 68 year old male with pmhx of htn, hld, and gerd who presented s/p prostate biopsy with chills. He was on bactrim and flagyl before admission. I was called to evaluate him for madisyn. he denies history of ckd. He denies nsaid use. He denies dysuria or hematuria. pmhx htn hld gerd nkda family hx non contrib ros neg social denies Current Medications Generic Name Dose Route Start Last Admin Trade Name Freq PRN Reason Stop Dose Admin Finasteride 5 mg 12/20/18 10:00 Proscar - PO DAILY JAYLA Heparin Sodium (Porcine) 5,000 unit 12/18/18 22:00 12/19/18 13:25 Heparin - SQ 5,000 unit TID JAYLA Administration Lactated Ringer's 1,000 ml in 1,000 mls @ 100 mls/hr 12/18/18 17:45 12/18/18 23:44 Lactated Ringers Solution IV 100 mls/hr ASDIR JAYLA Administration Piperacillin Sod/Tazobactam 50 mls @ 100 mls/hr 12/19/18 12:30 12/19/18 12:40 Sod 3.375 gm/ Dextrose IVPB 100 mls/hr Q8H-IV JAYLA Administration Protocol Pantoprazole Sodium 20 mg 12/19/18 10:00 12/19/18 10:17 Protonix - PO 20 mg DAILY JAYLA Administration Tamsulosin HCl 0.4 mg 12/19/18 22:00 Flomax - PO BID@0830,2200 [facility] Laboratory Tests 12/18/18 12/18/18 12/18/18 13:59 13:59 15:31 WBC 19.0 H Creatinine 1.9 H Lactic Acid 2.3 H* Urine Protein Urine Blood Ur Leukocyte Esterase 12/18/18 12/18/18 12/19/18 15:52 18:20 04:50 WBC Creatinine Lactic Acid 2.0 1.3 Urine Protein 1+ H Urine Blood 2+ H Ur Leukocyte Esterase 2+ H 12/19/18 12/19/18 07:25 07:25 WBC 16.2 H Creatinine 1.3 Lactic Acid Urine Protein Urine Blood Ur Leukocyte Esterase Last Vital Signs Temp Pulse Resp BP Pulse Ox 99.7 F H 108 H 18 126/77 94 L 12/19/18 10:33 12/19/18 10:33 12/19/18 10:33 12/19/18 10:33 12/19/18 09:00 ct abd reviewed cardio s1s2 reg pulm clear gi soft ext neg edema neuro awake and alert Impression 1. MADISYN 2. sepsis 3. uti 4. bacteremia 5. htn 6. 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
[2018-12-19] MEDS: LACTATED RINGERS SOLUTION 1,000 ML/1,000 ML INFUS.BAG IV SCH ×2 (18:22→21:48)
[2018-12-19] MEDS: TAMSULOSIN HCL 0.4 MG CAP PO SCH (22:06)
--- NOTE | 2018-12-19 23:14 | PN ---
Progress Note (short form) - Note Progress Note: UROLOGY CONSULT DICTATED. POST-BX. SEPSIS RX. PER ID.
--- NOTE | 2018-12-20 00:31 | CONS ---
DATE OF CONSULTATION: DATE OF DICTATION: 12/19/2018 HISTORY OF PRESENT ILLNESS: Patient is a 68-year-old male admitted via the emergency room yesterday after undergoing a transrectal ultrasound as well as an ultrasound guided biopsy. The patient had a benign and uneventful procedure. He states that he developed epigastric pain and some chest discomfort, also was having palpitations and became nauseous and had one bout of vomiting. Patient does have history of high blood pressure, dyslipidemia, gastroesophageal reflux disease. He has been having history of prostatism including frequency, urgency, nocturia x4, and feelings of incomplete bladder emptying; in the emergency room the patient revealed white count of 19,000, hemoglobin and hematocrit was 12.3/37.4, platelets were 230, BUN and creatinine were 29.4 over 1.9, random glucose was 103. Patient's PT was 14.3, INR was 1.2. Again, BUN and creatinine were 29 over 1.9. The patient had a CAT scan of his abdomen and pelvis without contrast, and this revealed an enlarged prostate with mild soft tissue stranding seen around in the prostate gland. There was also mild diffuse urinary bladder wall thickening which may be acute or chronic. There was also marked diffuse hepatic steatosis. The patient is admitted with diagnosis of post biopsy sepsis. He is presently on IV Zosyn and Flagyl. His urine culture reveals no growth as of today. Blood cultures also reveal no growth. Will continue to monitor patient's vital signs. Patient will be placed on Flomax as well as Proscar. Will follow with you. Nereyda [id number]
[2018-12-20] MEDS ORDERED: PIPERACILLIN/TAZOBACTAM 3.375 GM VIAL IVPB ONE ×3 (01:21→17:17)
[2018-12-20] MEDS ORDERED: DEXTROSE 5%-WATER - 50 ML IVPB ONE ×3 (01:22→17:17)
[2018-12-20] MEDS: PIPERACILLIN/TAZOB 3.375 GM 3.375 GM in DEXTROSE 5%-WATER - 50 ML IVPB SCH ×3 (02:00→17:24)
[2018-12-20] MEDS: HEPARIN NA (PORCINE) 5,000 UNITS/ML 1ML VIAL SQ SCH ×3 (07:00→21:55)
[2018-12-20 08:00] LABS: BASO % 0.5 % (0-2.0); EOS % 1.4 % (0-4.5); HEMOGLOBIN 11.4 GM/dL (11.7-16.9); LYMPH % 8.9 % (8-40); MCH 26.4 pg (25.7-33.7); MCHC 33.4 g/dl (32.0-35.9); MEAN CELL VOLUME 79.1 fl (80-96); MEAN PLT VOLUME 8.5 fl (7.5-11.1); NEUT % 83.2 % (42.8-82.8); PLATELET COUNT 194 K/MM3 (134-434); RDW 15.2 % (11.9-15.9); WHITE BLOOD COUNT 15.4 K/mm3 (4.0-10.0)
--- NOTE | 2018-12-20 08:21 | PN ---
Progress Note (short form) - Note Progress Note: HPI: Pt febrile last night with 500cc boluses as needed for soft pressures. Pt today awake and alert reports feeling better and denies any rigors or chills. Denies any shortness of breath, chest pain, palpitations. Endorses slight superpubic pain Vital Signs Temperature 99.7 F H 12/19/18 10:33 Pulse Rate 108 H 12/19/18 10:33 Respiratory Rate 18 12/19/18 10:33 Blood Pressure 126/77 12/19/18 10:33 O2 Sat by Pulse Oximetry (%) 94 L 12/19/18 09:00 PE GENERAL: Awake, alert, and fully oriented, in no acute distress. HEENT: NC/AT, EOMI, AYAN, sclera anicteric, MMM NECK: No JVD. LUNGS: CTA bilaterally. No wheezes, and no crackles. No accessory muscle use. On RA HEART: Tachycardic with regular rhythm, normal S1 and S2 without murmur ABDOMEN: Soft, nondistended, slight suprapubic tenderness, normoactive bowel sounds, no guarding, No hepatomegaly MUSCULOSKELETAL: + CVA tenderness. EXTREMITIES: 2+ pulses, warm, well-perfused. No calf tenderness. No peripheral edema. PSYCHIATRIC: Cooperative. Good eye contact. Appropriate mood and affect. SKIN: Warm, dry, no rashes or lesions noted, normal capillary refill. Microbiology 12/18/18 15:52 Urine - Urine Clean Catch Urine Culture - Preliminary Lactose Fermenting Neg Bacilli 12/18/18 15:31 Blood - Peripheral Venous Blood Culture - Preliminary Pending Organism Active Medications Finasteride (Proscar -) 5 mg PO DAILY [facility] Last Admin: 12/20/18 09:36 Dose: 5 mg Heparin Sodium (Porcine) (Heparin -) 5,000 unit SQ TID [facility] Last Admin: 12/20/18 07:00 Dose: 5,000 unit Lactated Ringer's (Lactated Ringers Solution) 1,000 ml in 1,000 mls @ 100 mls/ hr IV ASDIR [facility] Last Admin: 12/19/18 21:48 Dose: 100 mls/hr Piperacillin Sod/Tazobactam (Sod 3.375 gm/ Dextrose) 50 mls @ 100 mls/hr IVPB Q8H-IV [facility]AY[facility]; Protocol Last Admin: 12/20/18 09:36 Dose: 100 mls/hr Pantoprazole Sodium (Protonix -) 20 mg PO DAILY [facility] Last Admin: 12/20/18 09:36 Dose: 20 mg Tamsulosin HCl (Flomax -) 0.4 mg PO BID@0830,2200 [facility] Last Admin: 12/20/18 09:36 Dose: 0.4 mg A/P: Severe sepsis 2/2 Prostatitis (improving) Gram negative bacteremia Acute kidney injury (resolved) Lactic acidosis (resolving) Mild Transaminitis HTN HLD --Gram negative bacilli growing in BCx --Switched to Zosyn 3.375gm q8h IV --ID consult appreciated --Awaiting sensitivities --CT with contrast enhancement ordered due to improved renal function for final assessment of any abscess formation --LR@100cc/hr; bolus PRN --Started Proscar 5mg qdaily and Tamsulosin 0.4mg BID --MADISYN resolved; hydration prior to CT w/ contrast to continue --Transaminitis noted to be due to fatty liver disease as seen on CT --Initiated Norvasc 5mg qdaily for HTN --Holding home ACEi/thiazide due to impending CT with contrast and recent MADISYN FEN: Fluids: - LR@100cc/hr bolus PRN Electrolyte abnormalities: None currently Nutrition: Cholesterol and Na controlled diet PPX: DVT - Heparin TID GI - Not indicated Dispo: Awaiting culture sensitivities. CT f/u Case discussed with Dr. Manuel Quinn, DO - IM PGY-3 <Silvestre Quinn - Last Filed: 12/20/18 10:50> - Note Progress Note: Seen and examined; agree with resident history and physical as documented aside from as supplemented below. Independently verified all historical and PE findings; independently reviewed all labs and vitals. He meets inpatient criteria. 60 minutes spent in this encounter including ongoing discussion with the resident. Pain improved; in good spirits. Discussed at length with ID and resident team. No new complaints. urinating without difficulty. Renal function improved; pending repeat scan with contrast. 10 sys ROS done and negative aside from HPI O: VS, labs, imaging all idependently reviewed Mild distress, diaphoretic, in bed NC AT EOMI PERRLA Trachea midline, no neck masses Tachycardic, no tennille murmurs NT ND +BS CN2-12 wnl, no fnd Normal mood, appropriate behavior EKG reviewed CT w/ contrast to r/o occult prostatic abscess pending A/P: Patient presents with severe sepsis secondary to urinary source; he is at risk for resistant organisms due to recent instrumentation. Sepsis has resolved. Continues inpatient with ID consultation and urology consultation; appreciate expert guidance. Problems include: -Sepsis secondary to urinary source with recent instrumentation to prostate, r/ o prostatitis-fu repeat scan, c/w abx. Sepsis resolved -Gram negative bacteremia. Repeat cx; FU sensitivity (Ecoli likely) -MADISYN (improved, IVF per nephro) -Thickened urinary bladder (may be 2/2 retention due to BPH) -Underlying BPH (finasteride and tamsulosin) -Transaminitis (trending CMP) -Hx HTN -Hx HLD -Lactic Acidosis (resolved) Continue BPH medications as well as abx per ID IVF per nephro; Madisyn improved so DC when tolerating PO and hemodynamics assuredly normal Sepsis resolved; continue to monitor on medicine <Gordon Jackson - Last Filed: 12/21/18 14:24>
[2018-12-20 08:44] LABS: BILIRUBIN,TOTAL 0.5 mg/dL (0.2-1); BLOOD UREA NITROGEN 13.5 mg/dL (7-18); CALCIUM 8.5 mg/dL (8.5-10.1); MAGNESIUM 1.9 mg/dL (1.8-2.4); POTASSIUM 3.7 mmol/L (3.5-5.1); TOT PROT 6.1 g/dl (6.4-8.2)
[2018-12-20] MEDS: FINASTERIDE 5 MG TABLET (FP) PO SCH (09:36)
[2018-12-20] MEDS: TAMSULOSIN HCL 0.4 MG CAP PO SCH ×2 (09:36→21:55)
[2018-12-20] MEDS: PANTOPRAZOLE 20 MG TABLET (FP) PO SCH (09:36)
--- NOTE | 2018-12-20 11:22 | PN ---
Progress Note, Physician History of Present Illness: patient stable having headaches - Current Medication List Current Medications: Active Medications Amlodipine Besylate (Norvasc -) 5 mg PO DAILY [facility] Finasteride (Proscar -) 5 mg PO DAILY [facility] Last Admin: 12/20/18 09:36 Dose: 5 mg Heparin Sodium (Porcine) (Heparin -) 5,000 unit SQ TID [facility] Last Admin: 12/20/18 07:00 Dose: 5,000 unit Lactated Ringer's (Lactated Ringers Solution) 1,000 ml in 1,000 mls @ 100 mls/ hr IV ASDIR [facility] Last Admin: 12/19/18 21:48 Dose: 100 mls/hr Piperacillin Sod/Tazobactam (Sod 3.375 gm/ Dextrose) 50 mls @ 100 mls/hr IVPB Q8H-IV [facility]; Protocol Last Admin: 12/20/18 09:36 Dose: 100 mls/hr Pantoprazole Sodium (Protonix -) 20 mg PO DAILY [facility] Last Admin: 12/20/18 09:36 Dose: 20 mg Tamsulosin HCl (Flomax -) 0.4 mg PO BID@0830,2200 [facility] Last Admin: 12/20/18 09:36 Dose: 0.4 mg - Objective Vital Signs: Vital Signs Temperature 99.1 F 12/20/18 09:06 Pulse Rate 103 H 12/20/18 09:06 Respiratory Rate 18 12/20/18 09:06 Blood Pressure 149/89 12/20/18 09:06 O2 Sat by Pulse Oximetry (%) 98 12/20/18 08:51 Constitutional: Yes: Calm, Mild Distress Cardiovascular: Yes: S1, S2 Respiratory: Yes: Regular, CTA Bilaterally Gastrointestinal: Yes: Normal Bowel Sounds, Soft Musculoskeletal: Yes: WNL Extremities: Yes: WNL Neurological: Yes: Alert, Oriented Psychiatric: Yes: Alert, Oriented Labs: CBC, BMP 12/20/18 07:26 12/20/18 07:26 INR, PTT INR 1.21 (0.83-1.09) H 12/18/18 13:59 Assessment/Plan A/P: Patient presents with severe sepsis secondary to urinary source; he is at risk for resistant organisms due to recent instrumentation. He is critically ill due to this. Problems include: -Sepsis -MADISYN -gm negative bacteremia -Underlying BPH -Transaminitis -Lactic Acidosis plan continue abx repeat blood cx ordered
[2018-12-20] MEDS: amLODIPine BESYLATE 5 MG TABLET (FP) PO SCH (12:12)
[2018-12-20] MEDS ORDERED: ACETAMINOPHEN 500 MG TABLET (FP) PO ONE (12:55)
--- NOTE | 2018-12-20 14:13 | PN ---
Progress Note, Physician History of Present Illness: Pt seen and examined at bedside. He is awake and alert. - Current Medication List Current Medications: Active Medications Amlodipine Besylate (Norvasc -) 5 mg PO DAILY [facility] Last Admin: 12/20/18 12:12 Dose: 5 mg Finasteride (Proscar -) 5 mg PO DAILY [facility] Last Admin: 12/20/18 09:36 Dose: 5 mg Heparin Sodium (Porcine) (Heparin -) 5,000 unit SQ TID [facility] Last Admin: 12/20/18 13:31 Dose: 5,000 unit Lactated Ringer's (Lactated Ringers Solution) 1,000 ml in 1,000 mls @ 100 mls/ hr IV ASDIR [facility] Last Admin: 12/19/18 21:48 Dose: 100 mls/hr Piperacillin Sod/Tazobactam (Sod 3.375 gm/ Dextrose) 50 mls @ 100 mls/hr IVPB Q8H-IV [facility]; Protocol Last Admin: 12/20/18 09:36 Dose: 100 mls/hr Pantoprazole Sodium (Protonix -) 20 mg PO DAILY [facility] Last Admin: 12/20/18 09:36 Dose: 20 mg Tamsulosin HCl (Flomax -) 0.4 mg PO BID@0830,2200 [facility] Last Admin: 12/20/18 09:36 Dose: 0.4 mg - Objective Vital Signs: Vital Signs Temperature 99.1 F 12/20/18 09:06 Pulse Rate 103 H 12/20/18 09:06 Respiratory Rate 18 12/20/18 09:06 Blood Pressure 149/89 12/20/18 09:06 O2 Sat by Pulse Oximetry (%) 98 12/20/18 08:51 Constitutional: Yes: Calm Eyes: Yes: Conjunctiva Clear HENT: Yes: Atraumatic Neck: Yes: Supple Cardiovascular: Yes: S1, S2 Respiratory: Yes: CTA Bilaterally Gastrointestinal: Yes: Soft Genitourinary: Yes: WNL Musculoskeletal: Yes: WNL Edema: No Neurological: Yes: Oriented Psychiatric: Yes: Oriented Labs: CBC, BMP 12/20/18 07:26 12/20/18 07:26 INR, PTT INR 1.21 (0.83-1.09) H 12/18/18 13:59 Problem List - Problems (1) MADISYN (acute kidney injury) Code(s): N17.9 - ACUTE KIDNEY FAILURE, UNSPECIFIED Assessment/Plan Current Medications Generic Name Dose Route Start Last Admin Trade Name Jelly PRN Reason Stop Dose Admin Amlodipine Besylate 5 mg 12/20/18 11:30 12/20/18 12:12 Norvasc - PO 5 mg DAILY [facility] Administration Finasteride 5 mg 12/20/18 10:00 12/20/18 09:36 Proscar - PO 5 mg DAILY [facility] Administration Heparin Sodium (Porcine) 5,000 unit 12/18/18 22:00 12/20/18 13:31 Heparin - SQ 5,000 unit TID [facility] Administration Lactated Ringer's 1,000 ml in 1,000 mls @ 100 mls/hr 12/18/18 17:45 12/19/18 21:48 Lactated Ringers Solution IV 100 mls/hr ASDIR [facility] Administration Piperacillin Sod/Tazobactam 50 mls @ 100 mls/hr 12/19/18 12:30 12/20/18 09:36 Sod 3.375 gm/ Dextrose IVPB 100 mls/hr Q8H-IV [facility] Administration Protocol Pantoprazole Sodium 20 mg 12/19/18 10:00 12/20/18 09:36 Protonix - PO 20 mg DAILY [facility] Administration Tamsulosin HCl 0.4 mg 12/19/18 22:00 12/20/18 09:36 Flomax - PO 0.4 mg BID@0830,2200 [facility] Administration Impression 1. MADISYN 2. sepsis 3. uti 4. bacteremia 5. htn 6. gerd Plan - renal function is improving - cont fluids, can decrease rate - avoid hypotension - bp is improved - cont abx - repeat ua once infection clears
[2018-12-20] MEDS: LACTATED RINGERS SOLUTION 1,000 ML/1,000 ML INFUS.BAG IV SCH (17:24)
--- NOTE | 2018-12-20 21:02 | PN ---
Progress Note (short form) - Note Progress Note: UROLOGY NOTE. PT. IS AFEBRILE, VOIDING CLEAR URINE, ABD.-SOFT,N/T, BS++. PLAN- CONT. ON PROSCAR AND FLOMAX.WILL F/U IN OFFICE ON Monday12/25/18 AT 11 AM.
[2018-12-20] MEDS ORDERED: PT OWN MED DRAWER 7, Y5N ONE (21:51)
[2018-12-21] MEDS ORDERED: DEXTROSE 5%-WATER - 50 ML IVPB ONE ×3 (02:29→16:45)
[2018-12-21] MEDS ORDERED: PIPERACILLIN/TAZOBACTAM 3.375 GM VIAL IVPB ONE ×3 (02:29→16:44)
[2018-12-21] MEDS: PIPERACILLIN/TAZOB 3.375 GM 3.375 GM in DEXTROSE 5%-WATER - 50 ML IVPB SCH ×3 (02:53→17:05)
[2018-12-21] MEDS: LACTATED RINGERS SOLUTION 1,000 ML/1,000 ML INFUS.BAG IV SCH (06:49)
[2018-12-21] MEDS: HEPARIN NA (PORCINE) 5,000 UNITS/ML 1ML VIAL SQ SCH ×3 (06:59→22:05)
--- NOTE | 2018-12-21 07:48 | PN ---
Progress Note (short form) - Note Progress Note: Seen and examined; agree with resident history and physical as documented aside from as supplemented below. Independently verified all historical and PE findings; independently reviewed all labs and vitals. He meets inpatient criteria. 60 minutes spent in this encounter including ongoing discussion with the resident. Pain remains improved; FU with urology noted. ID discussed case with me; repeatig cx's. Growing ecoli with intermediate resistence. provided he remains imporved he may be DC likely monday. [employer]ation [employer] BPH sx, no malaise, no abd or pelvis pain 10 sys ROS done and negative aside from HPI O: VS, labs, imaging all idependently reviewed Mild distress, diaphoretic, in bed NC AT EOMI PERRLA Trachea midline, no neck masses Tachycardic, no tennille murmurs NT ND +BS CN2-12 wnl, no fnd Normal mood, appropriate behavior EKG reviewed CT w/ contrast to r/o occult prostatic abscess pending A/P: Patient presents with severe sepsis secondary to urinary source; he is at risk for resistant organisms due to recent instrumentation. Sepsis has resolved. Continues inpatient with ID consultation and urology consultation; appreciate expert guidance. Problems include: -Sepsis secondary to urinary source with recent instrumentation to prostate, r/ o prostatitis-fu repeat scan, c/w abx. Sepsis resolved -Gram negative bacteremia. Repeat cx; FU sensitivity (Ecoli likely) -MADISYN (improved, IVF per nephro) -Thickened urinary bladder (may be 2/2 retention due to BPH) -Underlying BPH (finasteride and tamsulosin) -Transaminitis (trending CMP) -Hx HTN -Hx HLD -Lactic Acidosis (resolved) Continue abx Bolused x1L this AM; can likely stop fluids if HR OK and if ok wth renal followup repeat cx's to ensure resolution of bacteremia Dc likely monday or monday <Gordon Jackson - Last Filed: 12/21/18 14:25> - Note Progress Note: HPI: No acute events overnight. No complaints today Vital Signs Temperature 97.2 F L 12/21/18 14:29 Pulse Rate 109 H 12/21/18 14:29 Respiratory Rate 18 12/21/18 14:29 Blood Pressure 133/92 12/21/18 14:29 O2 Sat by Pulse Oximetry (%) 98 12/21/18 09:00 PE GENERAL: Awake, alert, and fully oriented, in no acute distress. HEENT: NC/AT, EOMI, AYAN, sclera anicteric, MMM NECK: No JVD. LUNGS: CTA bilaterally. No wheezes, and no crackles. No accessory muscle use. On RA HEART: RRR, normal S1 and S2 without murmur ABDOMEN: Soft, nondistended, nontender, normoactive bowel sounds, no guarding, No hepatomegaly MUSCULOSKELETAL: + CVA tenderness. EXTREMITIES: 2+ pulses, warm, well-perfused. No calf tenderness. No peripheral edema. PSYCHIATRIC: Cooperative. Good eye contact. Appropriate mood and affect. SKIN: Warm, dry, no rashes or lesions noted, normal capillary refill. Microbiology 12/18/18 15:31 Blood - Peripheral Venous Blood Culture - Preliminary NO GROWTH OBTAINED AFTER 72 HOURS, INCUBATION TO CONTINUE FOR 2 DAYS. 12/20/18 11:49 Blood - Peripheral Venous Blood Culture - Preliminary NO GROWTH OBTAINED AFTER 24 HOURS, INCUBATION TO CONTINUE FOR 4 DAYS. 12/20/18 12:03 Blood - Peripheral Venous Blood Culture - Preliminary NO GROWTH OBTAINED AFTER 24 HOURS, INCUBATION TO CONTINUE FOR 4 DAYS. 12/18/18 15:31 Blood - Peripheral Venous Blood Culture - Final Escherichia Coli 12/18/18 15:52 Urine - Urine Clean Catch Urine Culture - Final Escherichia Coli Active Medications Amlodipine Besylate (Norvasc -) 5 mg PO DAILY [facility] Last Admin: 12/21/18 09:44 Dose: 5 mg Finasteride (Proscar -) 5 mg PO DAILY [facility] Last Admin: 12/21/18 09:47 Dose: 5 mg Heparin Sodium (Porcine) (Heparin -) 5,000 unit SQ TID [facility] Last Admin: 12/21/18 13:53 Dose: 5,000 unit Piperacillin Sod/Tazobactam (Sod 3.375 gm/ Dextrose) 50 mls @ 100 mls/hr IVPB Q8H-IV [facility]; Protocol Last Admin: 12/21/18 17:05 Dose: 100 mls/hr Pantoprazole Sodium (Protonix -) 20 mg PO DAILY [facility] Last Admin: 12/21/18 09:47 Dose: 20 mg Tamsulosin HCl (Flomax -) 0.4 mg PO BID@0830,2200 [facility] Last Admin: 12/21/18 09:47 Dose: 0.4 mg A/P: Severe sepsis 2/2 Prostatitis (improving) Gram negative bacteremia Acute kidney injury (resolved) Lactic acidosis (resolving) Mild Transaminitis HTN HLD --Gram negative bacilli growing in BCx --Zosyn to continue --Discuss with Id about possibility of needing IV ABX due to penetration into the prostate and resistance of fluoroquinolones --ID consult appreciated --CT with contrast enhancement ordered due to improved renal function for final assessment of any abscess formation --Bolus IVF PRN --Started Proscar 5mg qdaily and Tamsulosin 0.4mg BID --MADISYN resolved --Transaminitis noted to be due to fatty liver disease as seen on CT --Initiated Norvasc 5mg qdaily for HTN FEN: Fluids: Bolus PRN Electrolyte abnormalities: None currently Nutrition: Cholesterol and Na controlled diet PPX: DVT - Heparin TID GI - Not indicated Dispo: D/c planning Case discussed with Dr. Manuel Quinn, DO - IM PGY-3 <Silvestre Quinn - Last Filed: 12/21/18 17:16>
[2018-12-21] MEDS ORDERED: LACTATED RINGERS SOLUTION 1000 ML INFUS.BAG IV ONE (08:21)
[2018-12-21 08:43] LABS: BASO % 0.6 % (0-2.0); EOS % 2.6 % (0-4.5); HEMATOCRIT 38.4 % (35.4-49); HEMOGLOBIN 12.5 GM/dL (11.7-16.9); LYMPH % 16.1 % (8-40); MCH 26.2 pg (25.7-33.7); MCHC 32.6 g/dl (32.0-35.9); MEAN CELL VOLUME 80.5 fl (80-96); MONO % 9.9 % (3.8-10.2); NEUT % 70.8 % (42.8-82.8); PLATELET COUNT 232 K/MM3 (134-434); RBC 4.77 M/mm3 (4.00-5.60); RDW 14.9 % (11.9-15.9); WHITE BLOOD COUNT 12.3 K/mm3 (4.0-10.0)
[2018-12-21] MEDS ORDERED: KETOROLAC TROMETHAMINE 10 MG TABLET PO ONE (08:44)
[2018-12-21] MEDS ORDERED: KETOROLAC TROMETHAMINE 30 MG/1 ML VIAL IVPUSH ONE ×2 (08:49→18:36)
[2018-12-21 09:12] LABS: BLOOD UREA NITROGEN 10.1 mg/dL (7-18); CALCIUM 8.8 mg/dL (8.5-10.1); CREATININE 0.9 mg/dL (0.55-1.3); POTASSIUM 3.6 mmol/L (3.5-5.1)
[2018-12-21] MEDS: amLODIPine BESYLATE 5 MG TABLET (FP) PO SCH (09:44)
[2018-12-21] MEDS: TAMSULOSIN HCL 0.4 MG CAP PO SCH ×2 (09:47→22:05)
[2018-12-21] MEDS: PANTOPRAZOLE 20 MG TABLET (FP) PO SCH (09:47)
[2018-12-21] MEDS: FINASTERIDE 5 MG TABLET (FP) PO SCH (09:47)
--- NOTE | 2018-12-21 12:40 | PN ---
Progress Note, Physician History of Present Illness: patient stable having headaches better now - Current Medication List Current Medications: Active Medications Amlodipine Besylate (Norvasc -) 5 mg PO DAILY [facility] Last Admin: 12/21/18 09:44 Dose: 5 mg Finasteride (Proscar -) 5 mg PO DAILY [facility] [facility] Last Admin: 12/21/18 09:47 Dose: 5 mg Heparin Sodium (Porcine) (Heparin -) 5,000 unit SQ TID [facility] Last Admin: 12/21/18 06:59 Dose: Not Given Piperacillin Sod/Tazobactam (Sod 3.375 gm/ Dextrose) 50 mls @ 100 mls/hr IVPB Q8H-IV [facility]; Protocol Last Admin: 12/21/18 10:26 Dose: 100 mls/hr Pantoprazole Sodium (Protonix -) 20 mg PO DAILY [facility] [place] Last Admin: 12/21/18 09:47 Dose: 20 mg Tamsulosin HCl (Flomax -) 0.4 mg PO BID@0830,2200 [facility] Last Admin: 12/21/18 09:47 Dose: 0.4 mg - Objective Vital Signs: Vital Signs Temperature 98.6 F 12/21/18 09:06 Pulse Rate 106 H 12/21/18 09:06 Respiratory Rate 18 12/21/18 09:06 Blood Pressure 145/102 H 12/21/18 09:06 O2 Sat by Pulse Oximetry (%) 98 12/21/18 09:00 Constitutional: Yes: No Distress, Calm Cardiovascular: Yes: Regular Rate and Rhythm Respiratory: Yes: Regular, CTA Bilaterally Gastrointestinal: Yes: Normal Bowel Sounds, Soft Musculoskeletal: Yes: WNL Extremities: Yes: WNL Neurological: Yes: Alert, Oriented Psychiatric: Yes: Alert, Oriented Labs: CBC, BMP 12/21/18 06:40 12/21/18 06:40 INR, PTT INR 1.21 (0.83-1.09) H 12/18/18 13:59 Assessment/Plan A/P: Patient presents with severe sepsis secondary to urinary source; he is at risk for resistant organisms due to recent instrumentation. He is critically ill due to this. Problems include: -Sepsis -MADISYN -gm negative bacteremia -Underlying BPH -Transaminitis -Lactic Acidosis plan continue abx monitor headaches monitor wbc rest as per the team
--- NOTE | 2018-12-21 14:52 | PN ---
Progress Note, Physician History of Present Illness: Pt seen and examined at bedside. He is awake and alert. He denies shortness of breath. He says that he feels better today. - Current Medication List Current Medications: Active Medications Amlodipine Besylate (Norvasc -) 5 mg PO DAILY [facility] Last Admin: 12/21/18 09:44 Dose: 5 mg Finasteride (Proscar -) 5 mg PO DAILY [facility] Last Admin: 12/21/18 09:47 Dose: 5 mg Heparin Sodium (Porcine) (Heparin -) 5,000 unit SQ TID [facility] Last Admin: 12/21/18 13:53 Dose: 5,000 unit Piperacillin Sod/Tazobactam (Sod 3.375 gm/ Dextrose) 50 mls @ 100 mls/hr IVPB Q8H-IV [facility]; Protocol Last Admin: 12/21/18 10:26 Dose: 100 mls/hr Pantoprazole Sodium (Protonix -) 20 mg PO DAILY [facility] Last Admin: 12/21/18 09:47 Dose: 20 mg Tamsulosin HCl (Flomax -) 0.4 mg PO BID@0830,2200 [facility] Last Admin: 12/21/18 09:47 Dose: 0.4 mg - Objective Vital Signs: Vital Signs Temperature 97.2 F L 12/21/18 14:29 Pulse Rate 109 H 12/21/18 14:29 Respiratory Rate 18 12/21/18 14:29 Blood Pressure 133/92 12/21/18 14:29 O2 Sat by Pulse Oximetry (%) 98 12/21/18 09:00 Constitutional: Yes: Calm Eyes: Yes: Conjunctiva Clear HENT: Yes: Atraumatic Neck: Yes: Supple Cardiovascular: Yes: S1, S2 Respiratory: Yes: CTA Bilaterally Gastrointestinal: Yes: Soft Genitourinary: Yes: WNL Musculoskeletal: Yes: WNL Edema: No Neurological: Yes: Oriented Psychiatric: Yes: Oriented Labs: CBC, BMP 12/21/18 06:40 12/21/18 06:40 INR, PTT INR 1.21 (0.83-1.09) H 12/18/18 13:59 Problem List - Problems (1) MADISYN (acute kidney injury) Code(s): N17.9 - ACUTE KIDNEY FAILURE, UNSPECIFIED Assessment/Plan Current Medications Generic Name Dose Route Start Last Admin Trade Name Freq PRN Reason Stop Dose Admin Amlodipine Besylate 5 mg 12/20/18 11:30 12/21/18 09:44 Norvasc - PO 5 mg DAILY [facility] Administration Finasteride 5 mg 12/20/18 10:00 12/21/18 09:47 Proscar - PO 5 mg DAILY [facility] Administration Heparin Sodium (Porcine) 5,000 unit 12/18/18 22:00 12/21/18 13:53 Heparin - SQ 5,000 unit TID [facility] Administration Piperacillin Sod/Tazobactam 50 mls @ 100 mls/hr 12/19/18 12:30 12/21/18 10:26 Sod 3.375 gm/ Dextrose IVPB 100 mls/hr Q8H-IV [facility]LA Administration Protocol Pantoprazole Sodium 20 mg 12/19/18 10:00 12/21/18 09:47 Protonix - PO 20 mg DAILY [facility] Administration Tamsulosin HCl 0.4 mg 12/19/18 22:00 12/21/18 09:47 Flomax - PO 0.4 mg BID@0830,2200 [facility] Administration Impression 1. MADISYN 2. sepsis 3. uti 4. bacteremia 5. htn 6. gerd Plan - renal function improved - monitor lytes - avoid bactrim - bp improved - titrate amlodipine if needed - cont abx - repeat ua once infection clears
[2018-12-22] MEDS ORDERED: DEXTROSE 5%-WATER - 50 ML IVPB ONE ×2 (01:27→11:30)
[2018-12-22] MEDS ORDERED: PIPERACILLIN/TAZOBACTAM 3.375 GM VIAL IVPB ONE ×2 (01:27→11:30)
[2018-12-22] MEDS: PIPERACILLIN/TAZOB 3.375 GM 3.375 GM in DEXTROSE 5%-WATER - 50 ML IVPB SCH ×2 (01:46→11:32)
[2018-12-22] MEDS: HEPARIN NA (PORCINE) 5,000 UNITS/ML 1ML VIAL SQ SCH ×3 (06:14→22:23)
[2018-12-22 06:59] LABS: HEMATOCRIT 36.9 % (35.4-49); HEMOGLOBIN 12.4 GM/dL (11.7-16.9); MCH 26.5 pg (25.7-33.7); MCHC 33.5 g/dl (32.0-35.9); PLATELET COUNT 268 K/MM3 (134-434); RBC 4.68 M/mm3 (4.00-5.60); RDW 14.8 % (11.9-15.9); WHITE BLOOD COUNT 7.9 K/mm3 (4.0-10.0)
[2018-12-22 07:22] LABS: BLOOD UREA NITROGEN 23.2 mg/dL (7-18); CALCIUM 8.8 mg/dL (8.5-10.1); MAGNESIUM 1.9 mg/dL (1.8-2.4); POTASSIUM 3.8 mmol/L (3.5-5.1)
[2018-12-22] MEDS: TAMSULOSIN HCL 0.4 MG CAP PO SCH ×2 (09:57→22:23)
[2018-12-22] MEDS: amLODIPine BESYLATE 5 MG TABLET (FP) PO SCH (09:57)
--- NOTE | 2018-12-22 10:40 | PN ---
Physical Exam: SUBJECTIVE: Patient seen and examined Patient is better , he is urinating ok, no fever or chill seen by id and urologist. OBJECTIVE: Vital Signs Period Temp Pulse Resp BP Sys/Crespo Pulse Ox Last 24 Hr 97.2 F-99.6 F 91-109 18-18 129-154/56-96 96 GENERAL: The patient is awake, alert, and fully oriented, in no acute distress. HEAD: Normal with no signs of trauma. EYES: PERRL, extraocular movements intact, sclera anicteric, conjunctiva clear. No ptosis. ENT: Ears normal, nares patent, oropharynx clear without exudates, moist mucous membranes. NECK: Trachea midline, full range of motion, supple. LUNGS: Breath sounds equal, clear to auscultation bilaterally, no wheezes, no crackles, no accessory muscle use. HEART: Regular rate and rhythm, S1, S2 without murmur, rub or gallop. ABDOMEN: Soft, nontender, nondistended, normoactive bowel sounds, no guarding, no rebound, no hepatosplenomegaly, no masses. EXTREMITIES: 2+ pulses, warm, well-perfused, no edema. NEUROLOGICAL: Cranial nerves II through XII grossly intact. Normal speech, gait not observed. PSYCH: Normal mood, normal affect. SKIN: Warm, dry, normal turgor, no rashes or lesions noted Laboratory Results - last 24 hr 12/19/18 12/22/18 12/22/18 14:00 06:40 06:40 WBC 7.9 RBC 4.68 Hgb 12.4 Hct 36.9 MCV 79.0 L MCH 26.5 MCHC 33.5 RDW 14.8 Plt Count 268 MPV 8.0 D Sodium 142 Potassium 3.8 Chloride 109 H Carbon Dioxide 24 Anion Gap 9 BUN 23.2 H Creatinine 1.0 Est GFR (CKD-EPI)AfAm 87.99 Est GFR (CKD-EPI)NonAf 75.92 Random Glucose 92 Calcium 8.8 Magnesium 1.9 Urine Eosinophils None seen Active Medications Generic Name Dose Route Start Last Admin Trade Name Freq PRN Reason Stop Dose Admin Amlodipine Besylate 5 mg 12/20/18 11:30 12/22/18 09:57 Norvasc - PO 5 mg DAILY [facility] Administration Finasteride 5 mg 12/20/18 10:00 12/21/18 09:47 Proscar - PO 5 mg DAILY [facility] Administration Heparin Sodium (Porcine) 5,000 unit 12/18/18 22:00 12/22/18 06:14 Heparin - SQ 5,000 unit TID [facility] Administration Piperacillin Sod/Tazobactam 50 mls @ 100 mls/hr 12/19/18 12:30 12/22/18 01:46 Sod 3.375 gm/ Dextrose IVPB 100 mls/hr Q8H-IV [facility]LA Administration Protocol Pantoprazole Sodium 20 mg 12/19/18 10:00 12/21/18 09:47 Protonix - PO 20 mg DAILY [facility] Administration Tamsulosin HCl 0.4 mg 12/19/18 22:00 12/22/18 09:57 Flomax - PO 0.4 mg BID@0830,2200 [facility] Administration ASSESSMENT/PLAN: Problems include: -Sepsis secondary to urinary source with recent instrumentation to prostate, and prostatitis Sepsis resolving will continue abx for at least few more days due to severity of prostatitis and he already had an appointment with urologist for further treatment for his bpg -MADISYN (improved, IVF per nephro) -Thickened urinary bladder (may be 2/2 retention due to BPH) his creatinine is back to normal and he is ambulatory. -Underlying BPH (finasteride and tamsulosin) -Hx HTN stable disposition I think he should be able to go home on Monday with Po abx Visit type - Emergency Visit Emergency Visit: Yes ED Registration Date: 12/18/18 Care time: The patient presented to the Emergency Department on the above date and was hospitalized for further evaluation of their emergent condition. - New Patient This patient is new to me today: Yes Date on this admission: 12/22/18 - Critical Care Critical Care patient: No - Discharge Referral Referred to [facility] No
[2018-12-22] MEDS: PANTOPRAZOLE 20 MG TABLET (FP) PO SCH (11:32)
[2018-12-22] MEDS: FINASTERIDE 5 MG TABLET (FP) PO SCH (11:32)
--- NOTE | 2018-12-22 14:51 | PN ---
Progress Note, Physician History of Present Illness: Pt states he is feeling better. Has some abdominal bloating but no other specific complaints. - Current Medication List Current Medications: Active Medications Amlodipine Besylate (Norvasc -) 5 mg PO DAILY [facility] Last Admin: 12/22/18 09:57 Dose: 5 mg Finasteride (Proscar -) 5 mg PO DAILY [facility] Last Admin: 12/22/18 11:32 Dose: 5 mg Heparin Sodium (Porcine) (Heparin -) 5,000 unit SQ TID [facility] Last Admin: 12/22/18 14:31 Dose: Not Given Ceftriaxone Sodium (Ceftriaxone 2 Gm-D5w Bag) 2 gm in 50 mls @ 100 mls/hr IVPB DAILY [facility]; Protocol Pantoprazole Sodium (Protonix -) 20 mg PO DAILY [facility] Last Admin: 12/22/18 11:32 Dose: 20 mg Tamsulosin HCl (Flomax -) 0.4 mg PO BID@0830,2200 [facility] Last Admin: 12/22/18 09:57 Dose: 0.4 mg - Objective Vital Signs: Vital Signs Temperature 98.5 F 12/22/18 13:56 Pulse Rate 117 H 12/22/18 13:56 Respiratory Rate 18 12/22/18 13:56 Blood Pressure 146/100 12/22/18 13:56 O2 Sat by Pulse Oximetry (%) 97 12/22/18 09:00 Constitutional: Yes: No Distress, Calm Cardiovascular: Yes: Regular Rate and Rhythm Respiratory: Yes: Regular Gastrointestinal: Yes: Normal Bowel Sounds, Soft Genitourinary: Yes: WNL Extremities: Yes: WNL Integumentary: Yes: WNL Neurological: Yes: Alert, Oriented Labs: CBC, BMP 12/22/18 06:40 12/22/18 06:40 INR, PTT INR 1.21 (0.83-1.09) H 12/18/18 13:59 Microbiology 12/20/18 11:49 Blood - Peripheral Venous Blood Culture - Preliminary NO GROWTH OBTAINED AFTER 48 HOURS, INCUBATION TO CONTINUE FOR 3 DAYS. 12/20/18 12:03 Blood - Peripheral Venous Blood Culture - Preliminary NO GROWTH OBTAINED AFTER 48 HOURS, INCUBATION TO CONTINUE FOR 3 DAYS. 12/18/18 15:31 Blood - Peripheral Venous Blood Culture - Preliminary NO GROWTH OBTAINED AFTER 72 HOURS, INCUBATION TO CONTINUE FOR 2 DAYS. 12/18/18 15:31 Blood - Peripheral Venous Blood Culture - Final Escherichia Coli 12/18/18 15:52 Urine - Urine Clean Catch Urine Culture - Final Escherichia Coli Problem List - Problems (1) MADISYN (acute kidney injury) Code(s): N17.9 - ACUTE KIDNEY FAILURE, UNSPECIFIED Assessment/Plan UTI E. coli Bacteremia s/p Sepsis MADISYN BPH -- d/c Zosyn, switch to Ceftriaxone -- latest blood cultures NGTD -- fever/leukocytosis resolved continue monitor
--- NOTE | 2018-12-22 14:51 | PN ---
Progress Note, Physician History of Present Illness: Pt seen and examined at bedside. He denies shortness of breath or edema. He denies dysuria or hematuria. - Current Medication List Current Medications: Active Medications Amlodipine Besylate (Norvasc -) 5 mg PO DAILY [facility] Last Admin: 12/22/18 09:57 Dose: 5 mg Finasteride (Proscar -) 5 mg PO DAILY [facility] Last Admin: 12/22/18 11:32 Dose: 5 mg Heparin Sodium (Porcine) (Heparin -) 5,000 unit SQ TID [facility] Last Admin: 12/22/18 14:31 Dose: Not Given Ceftriaxone Sodium 2 gm/ (Dextrose) 100 mls @ 200 mls/hr IVPB DAILY [facility]; Protocol Pantoprazole Sodium (Protonix -) 20 mg PO DAILY [facility] Last Admin: 12/22/18 11:32 Dose: 20 mg Tamsulosin HCl (Flomax -) 0.4 mg PO BID@0830,2200 [facility] Last Admin: 12/22/18 09:57 Dose: 0.4 mg - Objective Vital Signs: Vital Signs Temperature 98.5 F 12/22/18 13:56 Pulse Rate 117 H 12/22/18 13:56 Respiratory Rate 18 12/22/18 13:56 Blood Pressure 146/100 12/22/18 13:56 O2 Sat by Pulse Oximetry (%) 97 12/22/18 09:00 Constitutional: Yes: Calm Eyes: Yes: Conjunctiva Clear HENT: Yes: Atraumatic Neck: Yes: Supple Cardiovascular: Yes: S1, S2 Respiratory: Yes: CTA Bilaterally Gastrointestinal: Yes: Soft Genitourinary: Yes: WNL Musculoskeletal: Yes: WNL Edema: No Integumentary: Yes: WNL Neurological: Yes: Oriented Psychiatric: Yes: Oriented Labs: CBC, BMP 12/22/18 06:40 12/22/18 06:40 INR, PTT INR 1.21 (0.83-1.09) H 12/18/18 13:59 Problem List - Problems (1) MADISYN (acute kidney injury) Code(s): N17.9 - ACUTE KIDNEY FAILURE, UNSPECIFIED Assessment/Plan Current Medications Generic Name Dose Route Start Last Admin Trade Name Freq PRN Reason Stop Dose Admin Amlodipine Besylate 5 mg 12/20/18 11:30 12/22/18 09:57 Norvasc - PO 5 mg DAILY [facility] Administration Finasteride 5 mg 12/20/18 10:00 12/22/18 11:32 Proscar - PO 5 mg DAILY [facility] Administration Heparin Sodium (Porcine) 5,000 unit 12/18/18 22:00 12/22/18 14:31 Heparin - SQ Not Given TID [facility] Ceftriaxone Sodium 2 gm/ 100 mls @ 200 mls/hr 12/22/18 19:00 Dextrose IVPB DAILY [facility] Protocol Pantoprazole Sodium 20 mg 12/19/18 10:00 12/22/18 11:32 Protonix - PO 20 mg DAILY [facility] Administration Tamsulosin HCl 0.4 mg 12/19/18 22:00 12/22/18 09:57 Flomax - PO 0.4 mg BID@0830,2200 [facility] Administration Impression 1. MADISYN 2. sepsis 3. uti 4. bacteremia 5. htn 6. gerd Plan - renal function stable - increase amlodipine to 10 mg - abx per primary team - avoid nephrotoxins - cont abx - repeat ua once infection clears
[2018-12-22] MEDS ORDERED: DEXTROSE 5%-WATER 100 ML IVPB ONE (18:16)
[2018-12-22] MEDS: CEFTRIAXONE 2 GM in DEXTROSE 5%-WATER 100 ML IVPB SCH (19:40)
[2018-12-23] MEDS: HEPARIN NA (PORCINE) 5,000 UNITS/ML 1ML VIAL SQ SCH ×3 (06:47→21:16)
[2018-12-23] MEDS ORDERED: DEXTROSE 5%-WATER 100 ML IVPB ONE (08:04)
[2018-12-23] MEDS: amLODIPine BESYLATE 10 MG TABLET (FP) PO SCH (09:33)
[2018-12-23] MEDS: PANTOPRAZOLE 20 MG TABLET (FP) PO SCH (09:33)
[2018-12-23] MEDS: TAMSULOSIN HCL 0.4 MG CAP PO SCH ×2 (09:33→21:16)
[2018-12-23] MEDS: FINASTERIDE 5 MG TABLET (FP) PO SCH (09:33)
--- NOTE | 2018-12-23 10:20 | PN ---
Physical Exam: SUBJECTIVE: Patient seen and examined he has no new complaint and taking his abx no diarrhea rest of ros are normal OBJECTIVE: Vital Signs Period Temp Pulse Resp BP Sys/Crespo Pulse Ox Last 24 Hr 98.3 F-99.2 F 89-119 18-20 125-156/90-105 97 GENERAL: The patient is awake, alert, and fully oriented, in no acute distress. HEAD: Normal with no signs of trauma. EYES: PERRL, extraocular movements intact, sclera anicteric, conjunctiva clear. No ptosis. ENT: Ears normal, nares patent, oropharynx clear without exudates, moist mucous membranes. NECK: Trachea midline, full range of motion, supple. LUNGS: Breath sounds equal, clear to auscultation bilaterally, no wheezes, no crackles, no accessory muscle use. HEART: Regular rate and rhythm, S1, S2 without murmur, rub or gallop. ABDOMEN: Soft, nontender, nondistended, normoactive bowel sounds, no guarding, no rebound, no hepatosplenomegaly, no masses. EXTREMITIES: 2+ pulses, warm, well-perfused, no edema. NEUROLOGICAL: Cranial nerves II through XII grossly intact. Normal speech, gait not observed. Active Medications Generic Name Dose Route Start Last Admin Trade Name Freq PRN Reason Stop Dose Admin Amlodipine Besylate 10 mg 12/23/18 10:00 12/23/18 09:33 Norvasc - PO 10 mg DAILY [facility] Administration Finasteride 5 mg 12/20/18 10:00 12/23/18 09:33 Proscar - PO 5 mg DAILY [facility] Administration Heparin Sodium (Porcine) 5,000 unit 12/18/18 22:00 12/23/18 06:47 Heparin - SQ Not Given TID [facility]PL[facility] Ceftriaxone Sodium 2 gm/ 100 mls @ 200 mls/hr 12/22/18 19:00 12/22/18 19:40 Dextrose IVPB 200 mls/hr DAILY [facility] Administration Protocol Pantoprazole Sodium 20 mg 12/19/18 10:00 12/23/18 09:33 Protonix - PO 20 mg DAILY [facility] Administration Tamsulosin HCl 0.4 mg 12/19/18 22:00 12/23/18 09:33 Flomax - PO 0.4 mg BID@0830,2200 [facility] Administration ASSESSMENT/PLAN: -Sepsis resolving. secondary to urinary source with recent instrumentation to prostate, and prostatitis Sepsis resolving will continue abx for at least few more days due to severity of prostatitis and he already had an appointment with urologist for further treatment for his bpg -MADISYN -improved, -Thickened urinary bladder (may be 2/2 retention due to BPH) his creatinine is back to normal and he is ambulatory. -Underlying BPH (finasteride and tamsulosin) -Hx HTN stable disposition I think he should be able to go home on Monday with Po abx but today his temp is 99 and will just observe. Visit type - Emergency Visit Emergency Visit: Yes ED Registration Date: 12/18/18 Care time: The patient presented to the Emergency Department on the above date and was hospitalized for further evaluation of their emergent condition. - New Patient This patient is new to me today: No - Critical Care Critical Care patient: No - Discharge Referral Referred to [facility] Med P.C.: No
--- NOTE | 2018-12-23 13:00 | PN ---
Progress Note, Physician History of Present Illness: Pt is alert, feels well. Has no complaints. - Current Medication List Current Medications: Active Medications Amlodipine Besylate (Norvasc -) 10 mg PO DAILY [facility] Last Admin: 12/23/18 09:33 Dose: 10 mg Finasteride (Proscar -) 5 mg PO DAILY [facility] Last Admin: 12/23/18 09:33 Dose: 5 mg Heparin Sodium (Porcine) (Heparin -) 5,000 unit SQ TID [facility] Last Admin: 12/23/18 06:47 Dose: Not Given Ceftriaxone Sodium 2 gm/ (Dextrose) 100 mls @ 200 mls/hr IVPB DAILY [facility]; Protocol Last Admin: 12/22/18 19:40 Dose: 200 mls/hr Pantoprazole Sodium (Protonix -) 20 mg PO DAILY [facility] Last Admin: 12/23/18 09:33 Dose: 20 mg Tamsulosin HCl (Flomax -) 0.4 mg PO BID@0830,2200 [facility] Last Admin: 12/23/18 09:33 Dose: 0.4 mg - Objective Vital Signs: Vital Signs Temperature 98.8 F 12/23/18 10:00 Pulse Rate 96 H 12/23/18 10:00 Respiratory Rate 18 12/23/18 10:00 Blood Pressure 142/101 H 12/23/18 10:00 O2 Sat by Pulse Oximetry (%) 97 12/23/18 09:00 Constitutional: Yes: No Distress, Calm Cardiovascular: Yes: Regular Rate and Rhythm Respiratory: Yes: CTA Bilaterally Gastrointestinal: Yes: Normal Bowel Sounds, Soft Genitourinary: Yes: WNL Extremities: Yes: WNL Integumentary: Yes: WNL Neurological: Yes: Alert, Oriented Labs: CBC, BMP 12/22/18 06:40 12/22/18 06:40 INR, PTT INR 1.21 (0.83-1.09) H 12/18/18 13:59 Microbiology 12/20/18 11:49 Blood - Peripheral Venous Blood Culture - Preliminary NO GROWTH OBTAINED AFTER 72 HOURS, INCUBATION TO CONTINUE FOR 2 DAYS. 12/20/18 12:03 Blood - Peripheral Venous Blood Culture - Preliminary NO GROWTH OBTAINED AFTER 72 HOURS, INCUBATION TO CONTINUE FOR 2 DAYS. 12/18/18 15:31 Blood - Peripheral Venous Blood Culture - Preliminary NO GROWTH OBTAINED AFTER 96 HOURS, INCUBATION TO CONTINUE FOR 1 DAYS. 12/18/18 15:31 Blood - Peripheral Venous Blood Culture - Final Escherichia Coli 12/18/18 15:52 Urine - Urine Clean Catch Urine Culture - Final Escherichia Coli Problem List - Problems (1) MADISYN (acute kidney injury) Code(s): N17.9 - ACUTE KIDNEY FAILURE, UNSPECIFIED Assessment/Plan UTI Prostatitis E. coli Bacteremia s/p Sepsis MADISYN BPH -- continue Ceftriaxone IV, monitor temps -- latest blood cultures NGTD -- wbc normal -- Urology followup continue monitor
[2018-12-23] MEDS: CEFTRIAXONE 2 GM in DEXTROSE 5%-WATER 100 ML IVPB SCH (14:30)
--- NOTE | 2018-12-23 15:56 | PN ---
Progress Note, Physician History of Present Illness: Pt seen and examined at bedside. He is awake and alert. He denies shortness of breath. He denies fevers. - Current Medication List Current Medications: Active Medications Amlodipine Besylate (Norvasc -) 10 mg PO DAILY [facility] Last Admin: 12/23/18 09:33 Dose: 10 mg Finasteride (Proscar -) 5 mg PO DAILY [facility] Last Admin: 12/23/18 09:33 Dose: 5 mg Heparin Sodium (Porcine) (Heparin -) 5,000 unit SQ TID [facility] Last Admin: 12/23/18 13:00 Dose: Not Given Ceftriaxone Sodium 2 gm/ (Dextrose) 100 mls @ 200 mls/hr IVPB DAILY [facility]; Protocol Last Admin: 12/23/18 14:30 Dose: 200 mls/hr Pantoprazole Sodium (Protonix -) 20 mg PO DAILY [facility] Last Admin: 12/23/18 09:33 Dose: 20 mg Tamsulosin HCl (Flomax -) 0.4 mg PO BID@0830,2200 [facility] Last Admin: 12/23/18 09:33 Dose: 0.4 mg - Objective Vital Signs: Vital Signs Temperature 98.2 F 12/23/18 14:00 Pulse Rate 114 H 12/23/18 14:00 Respiratory Rate 18 12/23/18 14:00 Blood Pressure 134/76 12/23/18 14:00 O2 Sat by Pulse Oximetry (%) 97 12/23/18 09:00 Constitutional: Yes: Calm Eyes: Yes: Conjunctiva Clear HENT: Yes: Atraumatic Neck: Yes: Supple Cardiovascular: Yes: S1, S2 Respiratory: Yes: CTA Bilaterally Gastrointestinal: Yes: Normal Bowel Sounds, Soft Genitourinary: Yes: WNL Musculoskeletal: Yes: WNL Edema: No Neurological: Yes: Oriented Psychiatric: Yes: Oriented Labs: CBC, BMP 12/22/18 06:40 12/22/18 06:40 INR, PTT INR 1.21 (0.83-1.09) H 12/18/18 13:59 Problem List - Problems (1) MADISYN (acute kidney injury) Code(s): N17.9 - ACUTE KIDNEY FAILURE, UNSPECIFIED Assessment/Plan Current Medications Generic Name Dose Route Start Last Admin Trade Name Freq PRN Reason Stop Dose Admin Amlodipine Besylate 10 mg 12/23/18 10:00 12/23/18 09:33 Norvasc - PO 10 mg DAILY [facility] Administration Finasteride 5 mg 12/20/18 10:00 12/23/18 09:33 Proscar - PO 5 mg DAILY [facility] Administration Heparin Sodium (Porcine) 5,000 unit 12/18/18 22:00 12/23/18 13:00 Heparin - SQ Not Given TID [facility] Ceftriaxone Sodium 2 gm/ 100 mls @ 200 mls/hr 12/22/18 19:00 12/23/18 14:30 Dextrose IVPB 200 mls/hr DAILY [facility] Administration Protocol Pantoprazole Sodium 20 mg 12/19/18 10:00 12/23/18 09:33 Protonix - PO 20 mg DAILY [facility] Administration Tamsulosin HCl 0.4 mg 12/19/18 22:00 12/23/18 09:33 Flomax - PO 0.4 mg BID@0830,2200 [facility] Administration Microbiology 12/20/18 12:03 Blood - Peripheral Venous Blood Culture - Preliminary NO GROWTH OBTAINED AFTER 72 HOURS, INCUBATION TO CONTINUE FOR 2 DAYS. 12/20/18 11:49 Blood - Peripheral Venous Blood Culture - Preliminary NO GROWTH OBTAINED AFTER 72 HOURS, INCUBATION TO CONTINUE FOR 2 DAYS. Impression 1. MADISYN 2. sepsis 3. uti 4. bacteremia 5. htn 6. gerd Plan - check bmp - renal function had stabilized - bp is improving - renal function stable - repeat blood cultures neg so far - avoid nephrotoxins - cont abx - repeat ua once infection clears
[2018-12-24] MEDS: HEPARIN NA (PORCINE) 5,000 UNITS/ML 1ML VIAL SQ SCH ×3 (06:42→21:10)
[2018-12-24 07:43] LABS: BASO % 0.7 % (0-2.0); EOS % 6.4 % (0-4.5); HEMOGLOBIN 12.7 GM/dL (11.7-16.9); LYMPH % 26.6 % (8-40); MCHC 32.4 g/dl (32.0-35.9); MEAN CELL VOLUME 80.1 fl (80-96); MEAN PLT VOLUME 8.1 fl (7.5-11.1); MONO % 13.6 % (3.8-10.2); NEUT % 52.7 % (42.8-82.8); PLATELET COUNT 313 K/MM3 (134-434); RBC 4.87 M/mm3 (4.00-5.60); RDW 14.9 % (11.9-15.9)
[2018-12-24 08:16] LABS: ALBUMIN 3.2 g/dl (3.4-5.0); BILIRUBIN,TOTAL 0.4 mg/dL (0.2-1); BLOOD UREA NITROGEN 19.2 mg/dL (7-18); CALCIUM 8.9 mg/dL (8.5-10.1); CREATININE 0.9 mg/dL (0.55-1.3); POTASSIUM 4.2 mmol/L (3.5-5.1); TOT PROT 7.1 g/dl (6.4-8.2)
[2018-12-24] MEDS ORDERED: DEXTROSE 5%-WATER 100 ML IVPB ONE (08:56)
[2018-12-24] MEDS: FINASTERIDE 5 MG TABLET (FP) PO SCH (09:30)
[2018-12-24] MEDS: HYDROCHLOROTHIAZIDE 12.5 MG CAPSULE (FP) PO SCH (09:30)
[2018-12-24] MEDS: TAMSULOSIN HCL 0.4 MG CAP PO SCH ×2 (09:30→21:10)
[2018-12-24] MEDS: PANTOPRAZOLE 20 MG TABLET (FP) PO SCH (09:30)
[2018-12-24] MEDS: amLODIPine BESYLATE 10 MG TABLET (FP) PO SCH (09:30)
[2018-12-24] MEDS: CEFTRIAXONE 2 GM in DEXTROSE 5%-WATER 100 ML IVPB SCH (09:33)
--- NOTE | 2018-12-24 10:47 | PN ---
Progress Note (short form) - Note Progress Note: urology note, pt. with post-bx. sepsis. presently afebrile, urine is clear, no dysuria c/s- no growth. will f/u in office on 12/26/18 at 11 am.
--- NOTE | 2018-12-24 12:21 | PN ---
Progress Note, Physician History of Present Illness: patient stable no new issues - Current Medication List Current Medications: Active Medications Amlodipine Besylate (Norvasc -) 10 mg PO DAILY [facility] Last Admin: 12/24/18 09:30 Dose: 10 mg Finasteride (Proscar -) 5 mg PO DAILY [facility] Last Admin: 12/24/18 09:30 Dose: 5 mg Heparin Sodium (Porcine) (Heparin -) 5,000 unit SQ TID [facility] Last Admin: 12/24/18 06:42 Dose: 5,000 unit Hydrochlorothiazide (Hctz -) 12.5 mg PO DAILY [facility] Last Admin: 12/24/18 09:30 Dose: 12.5 mg Ceftriaxone Sodium 2 gm/ (Dextrose) 100 mls @ 200 mls/hr IVPB DAILY [facility]; Protocol Last Admin: 12/24/18 09:33 Dose: 200 mls/hr Pantoprazole Sodium (Protonix -) 20 mg PO DAILY [facility] Last Admin: 12/24/18 09:30 Dose: 20 mg Tamsulosin HCl (Flomax -) 0.4 mg PO BID@0830,2200 [facility] Last Admin: 12/24/18 09:30 Dose: 0.4 mg - Objective Vital Signs: Vital Signs Temperature 98.2 F 12/24/18 10:32 Pulse Rate 122 H 12/24/18 10:32 Respiratory Rate 18 12/24/18 10:32 Blood Pressure 147/93 12/24/18 10:32 O2 Sat by Pulse Oximetry (%) 97 12/24/18 08:45 Constitutional: Yes: No Distress, Calm Cardiovascular: Yes: S1, S2 Respiratory: Yes: Regular, CTA Bilaterally Gastrointestinal: Yes: Normal Bowel Sounds, Soft Musculoskeletal: Yes: WNL Extremities: Yes: WNL Neurological: Yes: Alert, Oriented Psychiatric: Yes: Alert, Oriented Labs: CBC, BMP 12/24/18 07:10 12/24/18 07:10 INR, PTT INR 1.21 (0.83-1.09) H 12/18/18 13:59 Assessment/Plan A/P: Patient presents with severe sepsis secondary to urinary source; he is at risk for resistant organisms due to recent instrumentation. He is critically ill due to this. Problems include: -Sepsis -MADISYN -gm negative bacteremia -Underlying BPH -Transaminitis -Lactic Acidosis plan continue abx improving
[2018-12-24 12:53] LABS: ANISOCYTOSIS 1+; MACROCYTOSIS 0; PLATELET ESTIMATE NORMAL
--- NOTE | 2018-12-24 13:48 | PN ---
Progress Note, Physician History of Present Illness: Pt seen and examined at bedside. He is awake and alert. He denies fevers or chills. - Current Medication List Current Medications: Active Medications Amlodipine Besylate (Norvasc -) 10 mg PO DAILY [facility] Last Admin: 12/24/18 09:30 Dose: 10 mg Finasteride (Proscar -) 5 mg PO DAILY [facility] Last Admin: 12/24/18 09:30 Dose: 5 mg Heparin Sodium (Porcine) (Heparin -) 5,000 unit SQ TID [facility] Last Admin: 12/24/18 06:42 Dose: 5,000 unit Hydrochlorothiazide (Hctz -) 12.5 mg PO DAILY [facility] Last Admin: 12/24/18 09:30 Dose: 12.5 mg Ceftriaxone Sodium 2 gm/ (Dextrose) 100 mls @ 200 mls/hr IVPB DAILY [facility]; Protocol Last Admin: 12/24/18 09:33 Dose: 200 mls/hr Pantoprazole Sodium (Protonix -) 20 mg PO DAILY [facility] Last Admin: 12/24/18 09:30 Dose: 20 mg Tamsulosin HCl (Flomax -) 0.4 mg PO BID@0830,2200 [facility] Last Admin: 12/24/18 09:30 Dose: 0.4 mg - Objective Vital Signs: Vital Signs Temperature 98.2 F 12/24/18 10:32 Pulse Rate 122 H 12/24/18 10:32 Respiratory Rate 18 12/24/18 10:32 Blood Pressure 147/93 12/24/18 10:32 O2 Sat by Pulse Oximetry (%) 97 12/24/18 08:45 Constitutional: Yes: Calm Eyes: Yes: Conjunctiva Clear HENT: Yes: Atraumatic Cardiovascular: Yes: S1, S2 Respiratory: Yes: CTA Bilaterally Gastrointestinal: Yes: Soft Genitourinary: Yes: WNL Musculoskeletal: Yes: WNL Extremities: Yes: WNL Edema: No Neurological: Yes: Oriented Psychiatric: Yes: Oriented Labs: CBC, BMP 12/24/18 07:10 12/24/18 07:10 INR, PTT INR 1.21 (0.83-1.09) H 12/18/18 13:59 Problem List - Problems (1) MADISYN (acute kidney injury) Code(s): N17.9 - ACUTE KIDNEY FAILURE, UNSPECIFIED Assessment/Plan Current Medications Generic Name Dose Route Start Last Admin Trade Name Jelly PRN Reason Stop Dose Admin Amlodipine Besylate 10 mg 12/23/18 10:00 12/24/18 09:30 Norvasc - PO 10 mg DAILY [facility] Administration Finasteride 5 mg 12/20/18 10:00 12/24/18 09:30 Proscar - PO 5 mg DAILY [facility] Administration Heparin Sodium (Porcine) 5,000 unit 12/18/18 22:00 12/24/18 06:42 Heparin - SQ 5,000 unit TID [facility] Administration Hydrochlorothiazide 12.5 mg 12/24/18 10:00 12/24/18 09:30 Hctz - PO 12.5 mg DAILY [facility] Administration Ceftriaxone Sodium 2 gm/ 100 mls @ 200 mls/hr 12/22/18 19:00 12/24/18 09:33 Dextrose IVPB 200 mls/hr DAILY [facility] Administration Protocol Pantoprazole Sodium 20 mg 12/19/18 10:00 12/24/18 09:30 Protonix - PO 20 mg DAILY [facility] Administration Tamsulosin HCl 0.4 mg 12/19/18 22:00 12/24/18 09:30 Flomax - PO 0.4 mg BID@0830,2200 [facility] Administration Impression 1. MADISYN 2. sepsis 3. uti 4. bacteremia 5. htn 6. gerd Plan - renal function stable - ID to clarify duration of abx - avoid nephrotoxins - repeat ua once infection clears
--- NOTE | 2018-12-24 18:02 | PN ---
Progress Note (short form) - Note Progress Note: HPI: No acute events overnight. No complaints today PE GENERAL: Awake, alert, and fully oriented, in no acute distress. HEENT: NC/AT, EOMI, AYAN, sclera anicteric, MMM NECK: No JVD. LUNGS: CTA bilaterally. No wheezes, and no crackles. No accessory muscle use. On RA HEART: RRR, normal S1 and S2 without murmur ABDOMEN: Soft, nondistended, nontender, normoactive bowel sounds, no guarding, No hepatomegaly MUSCULOSKELETAL: + CVA tenderness. EXTREMITIES: 2+ pulses, warm, well-perfused. No calf tenderness. No peripheral edema. PSYCHIATRIC: Cooperative. Good eye contact. Appropriate mood and affect. SKIN: Warm, dry, no rashes or lesions noted, normal capillary refill. Microbiology 12/20/18 11:49 Blood - Peripheral Venous Blood Culture - Preliminary NO GROWTH OBTAINED AFTER 96 HOURS, INCUBATION TO CONTINUE FOR 1 DAYS. 12/20/18 12:03 Blood - Peripheral Venous Blood Culture - Preliminary NO GROWTH OBTAINED AFTER 96 HOURS, INCUBATION TO CONTINUE FOR 1 DAYS. 12/18/18 15:31 Blood - Peripheral Venous Blood Culture - Final NO GROWTH AFTER 5 DAYS INCUBATION 12/18/18 15:31 Blood - Peripheral Venous Blood Culture - Final Escherichia Coli 12/18/18 15:52 Urine - Urine Clean Catch Urine Culture - Final Escherichia Coli Active Medications Amlodipine Besylate (Norvasc -) 10 mg PO DAILY [facility] Last Admin: 12/24/18 09:30 Dose: 10 mg Finasteride (Proscar -) 5 mg PO DAILY [facility] Last Admin: 12/24/18 09:30 Dose: 5 mg Heparin Sodium (Porcine) (Heparin -) 5,000 unit SQ TID [facility] Last Admin: 12/24/18 21:10 Dose: 5,000 unit Hydrochlorothiazide (Hctz -) 12.5 mg PO DAILY [facility] Last Admin: 12/24/18 09:30 Dose: 12.5 mg Ceftriaxone Sodium 2 gm/ (Dextrose) 100 mls @ 200 mls/hr IVPB DAILY [facility]; Protocol Last Admin: 12/24/18 09:33 Dose: 200 mls/hr Pantoprazole Sodium (Protonix -) 20 mg PO DAILY [facility] Last Admin: 12/24/18 09:30 Dose: 20 mg Tamsulosin HCl (Flomax -) 0.4 mg PO BID@0830,2200 [facility] Last Admin: 12/24/18 21:10 Dose: 0.4 mg A/P: Severe sepsis 2/2 Prostatitis (improving) Gram negative bacteremia Acute kidney injury (resolved) Lactic acidosis (resolving) Mild Transaminitis HTN HLD --Gram negative bacilli growing in BCx --Zosyn to continue --Discuss with Id about possibility of needing IV ABX due to penetration into the prostate and resistance of fluoroquinolones/Bactrim --ID consult appreciated --Bolus IVF PRN --Started Proscar 5mg qdaily and Tamsulosin 0.4mg BID --MADISYN resolved --Transaminitis noted to be due to fatty liver disease as seen on CT --Initiated Norvasc 5mg qdaily for HTN FEN: Fluids: Bolus PRN Electrolyte abnormalities: None currently Nutrition: Cholesterol and Na controlled diet PPX: DVT - Heparin TID GI - Not indicated Dispo: D/c planning Case discussed with Dr. Manuel Quinn, DO - IM PGY-3 <Silvestre Quinn - Last Filed: 12/24/18 23:04> - Note Progress Note: I have seen and examined the indicated patient independently/along with the resident team. I have personally verified all shetty exam findings and historical components. I have personally interpreted all diagnostics indicated per todays orders and reviewed interpretation of indicated subspecialty services. This patient meets a high level of medical complexity and warrants inpatient admission to avoid decompensation and worsening of the indicated illness. 60 minutes have been spent in the completion of this admission. S: Agree with historical findings as outlined in resident documentation regarding history of present illness. 10 system ROS completed and is negative aside from indicated issues in HPI O: All vital signs reviewed per ER records and are as per EMR NAD, AAO, Resting in bed NC AT EOMI PERRLA Neck supple, trachea midline, no t[place] LN RRR s1/2 Lungs CTAB, w/ sym expansion NT ND +BS No skin breakdown or rashes noted CN2-12 wnl, no new focal deficits noted Muscle tone normal, no deficits in motor function or strength noted Normal mood, appropriate behavior, average insight A/P: Agree with problem list per resident HPI as outlined above; continue broad spectrum abx for proastatitis and monitor clinically. Transition to PO and continue for indicated prolonged course. The resistance pattern is noted and may be a mitigating factor in the successful conversion to PO. HTN and HLD remain controlled <Gordon Jackson - Last Filed: 12/25/18 00:32>
[2018-12-25] MEDS: HEPARIN NA (PORCINE) 5,000 UNITS/ML 1ML VIAL SQ SCH ×3 (06:06→21:52)
[2018-12-25 08:25] LABS: HEMATOCRIT 40.8 % (35.4-49); MCH 25.7 pg (25.7-33.7); MCHC 31.9 g/dl (32.0-35.9); MEAN CELL VOLUME 80.6 fl (80-96); PLATELET COUNT 375 K/MM3 (134-434); RBC 5.07 M/mm3 (4.00-5.60); WHITE BLOOD COUNT 7.3 K/mm3 (4.0-10.0)
[2018-12-25] MEDS: TAMSULOSIN HCL 0.4 MG CAP PO SCH ×2 (08:28→21:51)
[2018-12-25 09:00] LABS: BLOOD UREA NITROGEN 22.8 mg/dL (7-18); CALCIUM 9.3 mg/dL (8.5-10.1); CREATININE 0.9 mg/dL (0.55-1.3); POTASSIUM 4.2 mmol/L (3.5-5.1)
[2018-12-25] MEDS ORDERED: DEXTROSE 5%-WATER 100 ML IVPB ONE (10:11)
--- NOTE | 2018-12-25 10:21 | PN ---
Progress Note (short form) - Note Progress Note: HPI: No acute events overnight. No complaints today PE GENERAL: Awake, alert, and fully oriented, in no acute distress. HEENT: NC/AT, EOMI, AYAN, sclera anicteric, MMM NECK: No JVD. LUNGS: CTA bilaterally. No wheezes, and no crackles. No accessory muscle use. On RA HEART: RRR, normal S1 and S2 without murmur ABDOMEN: Soft, nondistended, nontender, normoactive bowel sounds, no guarding, No hepatomegaly MUSCULOSKELETAL: + CVA tenderness. EXTREMITIES: 2+ pulses, warm, well-perfused. No calf tenderness. No peripheral edema. PSYCHIATRIC: Cooperative. Good eye contact. Appropriate mood and affect. SKIN: Warm, dry, no rashes or lesions noted, normal capillary refill. Microbiology 12/20/18 11:49 Blood - Peripheral Venous Blood Culture - Final NO GROWTH AFTER 5 DAYS INCUBATION 12/20/18 12:03 Blood - Peripheral Venous Blood Culture - Final NO GROWTH AFTER 5 DAYS INCUBATION 12/18/18 15:31 Blood - Peripheral Venous Blood Culture - Final NO GROWTH AFTER 5 DAYS INCUBATION 12/18/18 15:31 Blood - Peripheral Venous Blood Culture - Final Escherichia Coli 12/18/18 15:52 Urine - Urine Clean Catch Urine Culture - Final Escherichia Coli Active Medications Amlodipine Besylate (Norvasc -) 10 mg PO DAILY [facility] Last Admin: 12/25/18 10:38 Dose: 10 mg Finasteride (Proscar -) 5 mg PO DAILY [facility] Last Admin: 12/25/18 10:38 Dose: 5 mg Heparin Sodium (Porcine) (Heparin -) 5,000 unit SQ TID [facility] Last Admin: 12/25/18 14:44 Dose: 5,000 unit Hydrochlorothiazide (Hctz -) 12.5 mg PO DAILY [facility] Last Admin: 12/25/18 10:38 Dose: 12.5 mg Ceftriaxone Sodium 2 gm/ (Dextrose) 100 mls @ 200 mls/hr IVPB DAILY [facility]; Protocol Last Admin: 12/25/18 10:38 Dose: 200 mls/hr Pantoprazole Sodium (Protonix -) 20 mg PO DAILY [facility] Last Admin: 12/25/18 10:38 Dose: 20 mg Tamsulosin HCl (Flomax -) 0.4 mg PO BID@0830,2200 [facility] Last Admin: 12/25/18 08:28 Dose: 0.4 mg A/P: Severe sepsis 2/2 Prostatitis (improving) Gram negative bacteremia Acute kidney injury (resolved) Lactic acidosis (resolving) Mild Transaminitis HTN HLD --Gram negative bacilli growing in BCx --Zosyn to continue until tomorrow (Can d/c after AM dose per ID); needed IV due to resistances to Bactrim and Fluoroquinolones --ID consult appreciated --Bolus IVF PRN --Started Proscar 5mg qdaily and Tamsulosin 0.4mg BID --MADISYN resolved --Transaminitis noted to be due to fatty liver disease as seen on CT --Initiated Norvasc 5mg qdaily for HTN FEN: Fluids: Bolus PRN Electrolyte abnormalities: None currently Nutrition: Cholesterol and Na controlled diet PPX: DVT - Heparin TID GI - Not indicated Dispo: D/c planning tomorrow! Case discussed with Dr. Manuel Quinn, DO - IM PGY-3 <Silvestre Quinn - Last Filed: 12/25/18 21:30> - Note Progress Note: I have seen and examined the indicated patient independently/along with the resident team. I have personally verified all shetty exam findings and historical components. I have personally interpreted all diagnostics indicated per todays orders and reviewed interpretation of indicated subspecialty services. This patient meets a high level of medical complexity and warrants inpatient admission to avoid decompensation and worsening of the indicated illness. 60 minutes have been spent in the completion of this admission. S: Agree with historical findings as outlined in resident documentation regarding history of present illness. Remains hemodynamically stable and in good spirits with no acute complaints. He is anticipating DC and should be clear within 24 hours. Will discuss with ID prior to his departure regarding final abx course given complicated infection involving instrumention to the prostate leading to bacteremia. 10 system ROS completed and is negative aside from indicated issues in HPI O: All vital signs reviewed per ER records and are as per EMR NAD, AAO, Resting in bed NC AT EOMI PERRLA Neck supple, trachea midline, no tenn[place] LN RRR s1/2 Lungs CTAB, w/ sym expansion NT ND +BS No skin breakdown or rashes noted CN2-12 wnl, no new focal deficits noted Muscle tone normal, no deficits in motor function or strength noted Normal mood, appropriate behavior, average insight CBCD WBC 7.3 K/mm3 (4.0-10.0) 12/25/18 07:55 RBC 5.07 M/mm3 (4.00-5.60) 12/25/18 07:55 Hgb 13.0 GM/dL (11.7-16.9) 12/25/18 07:55 Hct 40.8 % (35.4-49) 12/25/18 07:55 MCV 80.6 fl (80-96) 12/25/18 07:55 MCHC 31.9 g/dl (32.0-35.9) L 12/25/18 07:55 RDW 15.0 % (11.9-15.9) 12/25/18 07:55 Plt Count 375 K/MM3 (134-434) 12/25/18 07:55 MPV 8.0 fl (7.5-11.1) 12/25/18 07:55 CMP Sodium 142 mmol/L (136-145) 12/25/18 07:55 Potassium 4.2 mmol/L (3.5-5.1) 12/25/18 07:55 Chloride 105 mmol/L (98-107) 12/25/18 07:55 Carbon Dioxide 29 mmol/L (21-32) 12/25/18 07:55 Anion Gap 8 MMOL/L (8-16) 12/25/18 07:55 BUN 22.8 mg/dL (7-18) H 12/25/18 07:55 Creatinine 0.9 mg/dL (0.55-1.3) 12/25/18 07:55 Calcium 9.3 mg/dL (8.5-10.1) 12/25/18 07:55 Total Bilirubin 0.4 mg/dL (0.2-1) 12/24/18 07:10 AST 96 U/L (15-37) H 12/24/18 07:10 ALT 203 U/L (13-61) H 12/24/18 07:10 Alkaline Phosphatase 82 U/L (45-117) 12/24/18 07:10 Total Protein 7.1 g/dl (6.4-8.2) 12/24/18 07:10 Albumin 3.2 g/dl (3.4-5.0) L 12/24/18 07:10 Microbiology 12/20/18 11:49 Blood - Peripheral Venous Blood Culture - Final NO GROWTH AFTER 5 DAYS INCUBATION 12/20/18 12:03 Blood - Peripheral Venous Blood Culture - Final NO GROWTH AFTER 5 DAYS INCUBATION 12/18/18 15:31 Blood - Peripheral Venous Blood Culture - Final NO GROWTH AFTER 5 DAYS INCUBATION 12/18/18 15:31 Blood - Peripheral Venous Blood Culture - Final Escherichia Coli 12/18/18 15:52 Urine - Urine Clean Catch Urine Culture - Final Escherichia Coli A/P: Severe sepsis 2/2 Prostatitis (improving with resolved septic pattern) Gram negative bacteremia (E. Coli with noted resistence pattern) Acute kidney injury (resolved) Lactic acidosis (resolved) Mild Transaminitis HTN HLD BPH (on increased tams with flomax, seen by uro with scheduled followup as indicated in DC planning) Agree with problem list per resident HPI as outlined above; final abx per ID. DC likely in 24 hours. Improved clinically. Transition to PO and continue for indicated prolonged course. The resistance pattern is noted and may be a mitigating factor in the successful conversion to PO. HTN and HLD remain controlled Full Code <Gordon Jackson - Last Filed: 12/26/18 00:15>
[2018-12-25] MEDS: PANTOPRAZOLE 20 MG TABLET (FP) PO SCH (10:38)
[2018-12-25] MEDS: FINASTERIDE 5 MG TABLET (FP) PO SCH (10:38)
[2018-12-25] MEDS: CEFTRIAXONE 2 GM in DEXTROSE 5%-WATER 100 ML IVPB SCH (10:38)
[2018-12-25] MEDS: HYDROCHLOROTHIAZIDE 12.5 MG CAPSULE (FP) PO SCH (10:38)
[2018-12-25] MEDS: amLODIPine BESYLATE 10 MG TABLET (FP) PO SCH (10:38)
--- NOTE | 2018-12-25 12:29 | PN ---
Progress Note, Physician History of Present Illness: stable no new issues - Current Medication List Current Medications: Active Medications Amlodipine Besylate (Norvasc -) 10 mg PO DAILY [facility] Last Admin: 12/25/18 10:38 Dose: 10 mg Finasteride (Proscar -) 5 mg PO DAILY [facility] Last Admin: 12/25/18 10:38 Dose: 5 mg Heparin Sodium (Porcine) (Heparin -) 5,000 unit SQ TID [facility] Last Admin: 12/25/18 06:06 Dose: 5,000 unit Hydrochlorothiazide (Hctz -) 12.5 mg PO DAILY [facility] Last Admin: 12/25/18 10:38 Dose: 12.5 mg Ceftriaxone Sodium 2 gm/ (Dextrose) 100 mls @ 200 mls/hr IVPB DAILY [facility]; Protocol Last Admin: 12/25/18 10:38 Dose: 200 mls/hr Pantoprazole Sodium (Protonix -) 20 mg PO DAILY [facility] Last Admin: 12/25/18 10:38 Dose: 20 mg Tamsulosin HCl (Flomax -) 0.4 mg PO BID@0830,2200 [facility] Last Admin: 12/25/18 08:28 Dose: 0.4 mg - Objective Vital Signs: Vital Signs Temperature 98.7 F 12/25/18 10:16 Pulse Rate 100 H 12/25/18 10:16 Respiratory Rate 20 12/25/18 10:16 Blood Pressure 117/65 12/25/18 10:16 O2 Sat by Pulse Oximetry (%) 96 12/24/18 21:00 Constitutional: Yes: No Distress, Calm Cardiovascular: Yes: S1, S2 Respiratory: Yes: Regular, CTA Bilaterally Gastrointestinal: Yes: Normal Bowel Sounds, Soft Musculoskeletal: Yes: WNL Extremities: Yes: WNL Neurological: Yes: Alert, Oriented Psychiatric: Yes: Alert, Oriented Labs: CBC, BMP 12/25/18 07:55 12/25/18 07:55 INR, PTT INR 1.21 (0.83-1.09) H 12/18/18 13:59 Assessment/Plan A/P: Patient presents with severe sepsis secondary to urinary source; he is at risk for resistant organisms due to recent instrumentation. He is critically ill due to this. Problems include: -Sepsis -MADISYN -gm negative bacteremia -Underlying BPH -Transaminitis -Lactic Acidosis plan continue abx improving can stop abx after tomorrows dose rest as per the team
--- NOTE | 2018-12-25 16:06 | PN ---
Progress Note, Physician History of Present Illness: Pt seen and examined at bedside. He is awake and alert. He denies fevers or chills. - Current Medication List Current Medications: Active Medications Amlodipine Besylate (Norvasc -) 10 mg PO DAILY [facility] Last Admin: 12/25/18 10:38 Dose: 10 mg Finasteride (Proscar -) 5 mg PO DAILY [facility] Last Admin: 12/25/18 10:38 Dose: 5 mg Heparin Sodium (Porcine) (Heparin -) 5,000 unit SQ TID [facility] Last Admin: 12/25/18 14:44 Dose: 5,000 unit Hydrochlorothiazide (Hctz -) 12.5 mg PO DAILY [facility] Last Admin: 12/25/18 10:38 Dose: 12.5 mg Ceftriaxone Sodium 2 gm/ (Dextrose) 100 mls @ 200 mls/hr IVPB DAILY [facility]; Protocol Last Admin: 12/25/18 10:38 Dose: 200 mls/hr Pantoprazole Sodium (Protonix -) 20 mg PO DAILY [facility] Last Admin: 12/25/18 10:38 Dose: 20 mg Tamsulosin HCl (Flomax -) 0.4 mg PO BID@0830,2200 [facility] Last Admin: 12/25/18 08:28 Dose: 0.4 mg - Objective Vital Signs: Vital Signs Temperature 99 F 12/25/18 14:32 Pulse Rate 111 H 12/25/18 14:32 Respiratory Rate 20 12/25/18 14:32 Blood Pressure 130/80 12/25/18 14:32 O2 Sat by Pulse Oximetry (%) 98 12/25/18 10:20 Constitutional: Yes: Calm Eyes: Yes: Conjunctiva Clear HENT: Yes: Atraumatic Neck: Yes: Supple Cardiovascular: Yes: S1, S2 Respiratory: Yes: CTA Bilaterally Gastrointestinal: Yes: Soft Genitourinary: Yes: WNL Musculoskeletal: Yes: WNL Edema: No Integumentary: Yes: WNL Neurological: Yes: Oriented Psychiatric: Yes: Oriented Labs: CBC, BMP 12/25/18 07:55 12/25/18 07:55 INR, PTT INR 1.21 (0.83-1.09) H 12/18/18 13:59 Problem List - Problems (1) MADISYN (acute kidney injury) Code(s): N17.9 - ACUTE KIDNEY FAILURE, UNSPECIFIED Assessment/Plan Current Medications Generic Name Dose Route Start Last Admin Trade Name Peterq PRN Reason Stop Dose Admin Amlodipine Besylate 10 mg 12/23/18 10:00 12/25/18 10:38 Norvasc - PO 10 mg DAILY [facility] Administration Finasteride 5 mg 12/20/18 10:00 12/25/18 10:38 Proscar - PO 5 mg DAILY [facility] Administration Heparin Sodium (Porcine) 5,000 unit 12/18/18 22:00 12/25/18 14:44 Heparin - SQ 5,000 unit TID [facility] Administration Hydrochlorothiazide 12.5 mg 12/24/18 10:00 12/25/18 10:38 Hctz - PO 12.5 mg DAILY [facility] Administration Ceftriaxone Sodium 2 gm/ 100 mls @ 200 mls/hr 12/22/18 19:00 12/25/18 10:38 Dextrose IVPB 200 mls/hr DAILY [facility] Administration Protocol Pantoprazole Sodium 20 mg 12/19/18 10:00 12/25/18 10:38 Protonix - PO 20 mg DAILY [facility] Administration Tamsulosin HCl 0.4 mg 12/19/18 22:00 12/25/18 08:28 Flomax - PO 0.4 mg BID@0830,2200 [facility] Administration Impression 1. MADISYN 2. sepsis 3. uti 4. bacteremia 5. htn 6. gerd Plan - ID input appreciated - discussed plan with pt - avid nephrotoxins - avoid nsaids - renal function improved - repeat ua
[2018-12-25 17:32] LABS: EPI CELLS 1.6 /HPF (0-5/HPF); HYALINE CASTS 1 /lpf (0-8); PH,URINE 6.5 (5.0-8.0); URINE APPEARANCE CLEAR; URINE BACTERIA 0.7 /hpf (NEGATIVE); URINE BILIRUBIN NEGATIVE (NEGATIVE); URINE COLOR YELLOW; URINE GLUCOSE (UA) NEGATIVE (NEGATIVE); URINE KETONE NEGATIVE (NEGATIVE); URINE LEUK ESTERASE TRACE (NEGATIVE); URINE NITRITE NEGATIVE (NEGATIVE); URINE PROTEIN NEGATIVE (NEGATIVE); URINE RBC 1 /hpf (0-4); URINE UROBILINOGEN 0.2 mg/dL (0.2-1.0); URINE WBC 2 /hpf (0-5)
[2018-12-26] MEDS: HEPARIN NA (PORCINE) 5,000 UNITS/ML 1ML VIAL SQ SCH ×2 (06:23→14:32)
[2018-12-26] MEDS: TAMSULOSIN HCL 0.4 MG CAP PO SCH (08:47)
[2018-12-26 08:48] LABS: HEMATOCRIT 37.5 % (35.4-49); HEMOGLOBIN 12.4 GM/dL (11.7-16.9); MCH 26.5 pg (25.7-33.7); MEAN CELL VOLUME 80.2 fl (80-96); MEAN PLT VOLUME 7.6 fl (7.5-11.1); PLATELET COUNT 410 K/MM3 (134-434); RBC 4.68 M/mm3 (4.00-5.60); RDW 14.9 % (11.9-15.9)
[2018-12-26 09:22] LABS: BLOOD UREA NITROGEN 20.8 mg/dL (7-18); CALCIUM 9.2 mg/dL (8.5-10.1); CREATININE 0.9 mg/dL (0.55-1.3); POTASSIUM 4.4 mmol/L (3.5-5.1)
[2018-12-26 09:28] VITALS: BP 111/61; PULSE 112; TEMP 98.9
[2018-12-26] MEDS ORDERED: DEXTROSE 5%-WATER 100 ML IVPB ONE (09:31)
[2018-12-26] MEDS: amLODIPine BESYLATE 10 MG TABLET (FP) PO SCH (09:37)
[2018-12-26] MEDS: FINASTERIDE 5 MG TABLET (FP) PO SCH (09:37)
[2018-12-26] MEDS: PANTOPRAZOLE 20 MG TABLET (FP) PO SCH (09:37)
[2018-12-26] MEDS: CEFTRIAXONE 2 GM in DEXTROSE 5%-WATER 100 ML IVPB SCH (09:37)
[2018-12-26] MEDS: HYDROCHLOROTHIAZIDE 12.5 MG CAPSULE (FP) PO SCH (09:37)
--- NOTE | 2018-12-26 12:00 | PN ---
Progress Note, Physician Chief Complaint: Pt seen and examined. He has no complaints. He is eager to go home. - Current Medication List Current Medications: Active Medications Amlodipine Besylate (Norvasc -) 10 mg PO DAILY [facility] Last Admin: 12/26/18 09:37 Dose: 10 mg Finasteride (Proscar -) 5 mg PO DAILY [facility] Last Admin: 12/26/18 09:37 Dose: 5 mg Heparin Sodium (Porcine) (Heparin -) 5,000 unit SQ TID [facility] Last Admin: 12/26/18 06:23 Dose: 5,000 unit Hydrochlorothiazide (Hctz -) 12.5 mg PO DAILY [facility] Last Admin: 12/26/18 09:37 Dose: 12.5 mg Ceftriaxone Sodium 2 gm/ (Dextrose) 100 mls @ 200 mls/hr IVPB DAILY [facility]; Protocol Last Admin: 12/26/18 09:37 Dose: 200 mls/hr Pantoprazole Sodium (Protonix -) 20 mg PO DAILY [facility] Last Admin: 12/26/18 09:37 Dose: 20 mg Tamsulosin HCl (Flomax -) 0.4 mg PO BID@0830,2200 [facility] Last Admin: 12/26/18 08:47 Dose: 0.4 mg - Objective Vital Signs: Vital Signs Temperature 98.9 F 12/26/18 09:27 Pulse Rate 112 H 12/26/18 09:27 Respiratory Rate 20 12/26/18 09:27 Blood Pressure 111/61 12/26/18 09:27 O2 Sat by Pulse Oximetry (%) 95 12/25/18 21:00 Constitutional: Yes: Calm Eyes: Yes: Conjunctiva Clear Cardiovascular: Yes: S1, S2 Respiratory: Yes: CTA Bilaterally Gastrointestinal: Yes: Soft Genitourinary: Yes: WNL Musculoskeletal: Yes: WNL Edema: No Neurological: Yes: Oriented Psychiatric: Yes: Oriented Labs: CBC, BMP 12/26/18 08:10 12/26/18 08:10 INR, PTT INR 1.21 (0.83-1.09) H 12/18/18 13:59 Problem List - Problems (1) MADISYN (acute kidney injury) Code(s): N17.9 - ACUTE KIDNEY FAILURE, UNSPECIFIED Assessment/Plan Current Medications Generic Name Dose Route Start Last Admin Trade Name Freq PRN Reason Stop Dose Admin Amlodipine Besylate 10 mg 12/23/18 10:00 12/26/18 09:37 Norvasc - PO 10 mg DAILY [facility] Administration Finasteride 5 mg 12/20/18 10:00 12/26/18 09:37 Proscar - PO 5 mg DAILY [facility] Administration Heparin Sodium (Porcine) 5,000 unit 12/18/18 22:00 12/26/18 06:23 Heparin - SQ 5,000 unit TID [facility] Administration Hydrochlorothiazide 12.5 mg 12/24/18 10:00 12/26/18 09:37 Hctz - PO 12.5 mg DAILY [facility] Administration Ceftriaxone Sodium 2 gm/ 100 mls @ 200 mls/hr 12/22/18 19:00 12/26/18 09:37 Dextrose IVPB 200 mls/hr DAILY [facility] Administration Protocol Pantoprazole Sodium 20 mg 12/19/18 10:00 12/26/18 09:37 Protonix - PO 20 mg DAILY [facility] Administration Tamsulosin HCl 0.4 mg 12/19/18 22:00 12/26/18 08:47 Flomax - PO 0.4 mg BID@0830,2200 [facility] Administration Laboratory Tests 12/19/18 12/25/18 14:00 17:00 Urine Protein Negative Urine Blood 1+ H Urine WBC (Auto) 2 Urine RBC (Auto) 1 Urine Eosinophils None seen Impression 1. MADISYN 2. sepsis 3. uti 4. bacteremia 5. htn 6. gerd Plan - repeat ua reviewed - can see in office and check again once infection cleared - renal function stable - will follow PRN - avid nephrotoxins - avoid nsaids
--- NOTE | 2018-12-26 12:50 | DS ---
Physical Exam: SUBJECTIVE: Patient seen and examined OBJECTIVE: Vital Signs Period Temp Pulse Resp BP Sys/Crespo Pulse Ox Last 24 Hr 98.3 F-99 F 97-120 18-20 111-139/61-90 95 PHYSICAL EXAM GENERAL: The patient is awake, alert, and fully oriented, in no acute distress. HEAD: Normal with no signs of trauma. EYES: PERRL, extraocular movements intact, sclera anicteric, conjunctiva clear. ENT: Ears normal, nares patent, oropharynx clear without exudates, moist mucous membranes. NECK: Trachea midline, full range of motion, supple. LUNGS: Breath sounds equal, clear to auscultation bilaterally, no wheezes, no crackles, no accessory muscle use. HEART: Regular rate and rhythm, S1, S2 without murmur, rub or gallop. ABDOMEN: Soft, nontender, nondistended, normoactive bowel sounds, no guarding, no rebound, no hepatosplenomegaly, no masses. EXTREMITIES: 2+ pulses, warm, well-perfused, no edema. NEUROLOGICAL: Cranial nerves II through XII grossly intact. Normal speech, gait not observed. PSYCH: Normal mood, normal affect. SKIN: Warm, dry, normal turgor, no rashes or lesions noted. LABS Laboratory Results - last 24 hr 12/25/18 12/26/18 12/26/18 17:00 08:10 08:10 WBC 8.0 RBC 4.68 Hgb 12.4 Hct 37.5 MCV 80.2 MCH 26.5 MCHC 33.0 RDW 14.9 Plt Count 410 MPV 7.6 Sodium 139 Potassium 4.4 Chloride 104 Carbon Dioxide 29 Anion Gap 6 L BUN 20.8 H Creatinine 0.9 Est GFR (CKD-EPI)AfAm 99.94 Est GFR (CKD-EPI)NonAf 86.23 Random Glucose 93 Calcium 9.2 Urine Color Yellow Urine Appearance Clear Urine pH 6.5 Ur Specific [place] 1.006 L Urine Protein Negative Urine Glucose (UA) Negative Urine Ketones Negative Urine Blood 1+ H Urine Nitrite Negative Urine Bilirubin Negative Urine Urobilinogen 0.2 Ur Leukocyte Esterase Trace Urine WBC (Auto) 2 Urine RBC (Auto) 1 Urine Casts (Auto) 1 U Epithel Cells (Auto) 1.6 Urine Bacteria (Auto) 0.7 HOSPITAL COURSE: Date of Admission:12/18/18 Date of Discharge: 12/26/18 Discharge Summary Problems reviewed: Yes Reason For Visit: SEPSIS Current Active Problems MADISYN (acute kidney injury) (Acute) Chest pain (Acute) Prostatitis (Acute) Condition: Improved - Instructions Diet, Activity, Other Instructions: You were seen for a prostate infection after a procedure that left you septic and with bacteria in your blood. The bacteria are cleared out of your blood and you completed your antibiotic therapy while in the hospital New Medication: -Changed Tamsulosin 0.4mg to TWICE DAILY -Added Finasteride 5mg by mouth daily -Discontinued combination blood pressure pill; start HCTZ 12.5mg PO QD ONLY Diet: DASH diet Activity: Resume Home Activity Followup: -PCP 3-5 Days -Dr. James within 1 week -ID within 2-4 weeks -Nephrology within 1 month If you experience fevers, chills, burning when urinating, or blood in your urine , call a doctor or go to the ER right away. Referrals: Jian Gerard MD [Staff Physician] - 1 Week Dmitri Lema MD [Primary Care Provider] - (3-5 days) Anya Centeno MD [Staff Physician] - 1 Month (CKD work-up) Jonathon James MD [Staff Physician] - 12/25/18 11:00 am Disposition: HOME - Home Medications Comprehensive Discharge Medication List: Ambulatory Orders Pravastatin Sodium [Pravachol -] 40 mg PO HS 12/18/18 Finasteride [Proscar -] 5 mg PO DAILY #30 tablet 12/24/18 Hydrochlorothiazide [Hctz -] 12.5 mg PO DAILY cap 12/24/18 Tamsulosin HCl [Flomax -] 0.4 mg PO BID@0830,2200 #60 cap.er.24h 12/24/18 - Discharge Referral Referred to [facility] No ATTENDING PHYSICIAN STATEMENT I saw and evaluated the patient. I reviewed the resident's note and discussed the case with the resident. I agree with the resident's findings and plan as documented. SUBJECTIVE: OBJECTIVE: ASSESSMENT AND PLAN:
--- NOTE | 2018-12-26 13:25 | PN ---
Progress Note, Physician History of Present Illness: patient stable no new issues - Current Medication List Current Medications: Active Medications Amlodipine Besylate (Norvasc -) 10 mg PO DAILY [facility] Last Admin: 12/26/18 09:37 Dose: 10 mg Finasteride (Proscar -) 5 mg PO DAILY [facility] Last Admin: 12/26/18 09:37 Dose: 5 mg Heparin Sodium (Porcine) (Heparin -) 5,000 unit SQ TID [facility] Last Admin: 12/26/18 06:23 Dose: 5,000 unit Hydrochlorothiazide (Hctz -) 12.5 mg PO DAILY [facility] Last Admin: 12/26/18 09:37 Dose: 12.5 mg Ceftriaxone Sodium 2 gm/ (Dextrose) 100 mls @ 200 mls/hr IVPB DAILY [facility]; Protocol Last Admin: 12/26/18 09:37 Dose: 200 mls/hr Pantoprazole Sodium (Protonix -) 20 mg PO DAILY [facility] Last Admin: 12/26/18 09:37 Dose: 20 mg Tamsulosin HCl (Flomax -) 0.4 mg PO BID@0830,2200 [facility] Last Admin: 12/26/18 08:47 Dose: 0.4 mg - Objective Vital Signs: Vital Signs Temperature 98.9 F 12/26/18 09:27 Pulse Rate 112 H 12/26/18 09:27 Respiratory Rate 20 12/26/18 09:27 Blood Pressure 111/61 12/26/18 09:27 O2 Sat by Pulse Oximetry (%) 95 12/25/18 21:00 Constitutional: Yes: No Distress, Calm Cardiovascular: Yes: S1, S2 Respiratory: Yes: Regular, CTA Bilaterally Gastrointestinal: Yes: Normal Bowel Sounds, Soft Musculoskeletal: Yes: WNL Extremities: Yes: WNL Neurological: Yes: Alert, Oriented Psychiatric: Yes: Alert, Oriented Labs: CBC, BMP 12/26/18 08:10 12/26/18 08:10 INR, PTT INR 1.21 (0.83-1.09) H 12/18/18 13:59 Assessment/Plan A/P: Patient presents with severe sepsis secondary to urinary source; he is at risk for resistant organisms due to recent instrumentation. He is critically ill due to this. Problems include: -Sepsis -MADISYN -gm negative bacteremia -Underlying BPH -Transaminitis -Lactic Acidosis plan continue abx improving can stop abx after tomorrows dose rest as per the team switch to oral cephalosporin for another week
== END 2018-12-26 16:28 | disposition home or self-care (01) | DRG 862 ==
LOC: JER 12:40 → JERBED 16:28 → J5S 20:12
PROVIDERS: ADMIT Internal Medicine; ATTEND Internal Medicine
DX: T81.44XA Sepsis following a procedure, initial encounter (principal); A41.59 Other Gram-negative sepsis; R65.20 Severe sepsis without septic shock; E87.2 Acidosis; N17.9 Acute kidney failure, unspecified; N39.0 Urinary tract infection, site not specified; Y83.8 Other surgical procedures as the cause of abnormal reaction of the patient, or of later complication, without mention of misadventure at the time of the procedure; N99.89 Other postprocedural complications and disorders of genitourinary system; I10 Essential (primary) hypertension; E78.5 Hyperlipidemia, unspecified; E83.42 Hypomagnesemia; B96.20 Unspecified Escherichia coli [E. coli] as the cause of diseases classified elsewhere; K21.9 Gastro-esophageal reflux disease without esophagitis; N40.0 Benign prostatic hyperplasia without lower urinary tract symptoms; N41.9 Inflammatory disease of prostate, unspecified
CPT/HCPCS: 36415; 71046-TC-FY; 74176-TC; 74177-TC; 80048; 80053; 81003; 82550; 82565; 83605; 83690; 83735; 84100; 84484; 84540; 85025; 85027; 85610; 87040; 87086; 87186; 87205; 93005; 93010; 99284-25; J0131; J1644; J7030

== ENCOUNTER 2019-02-01 15:51 | Inpatient (IN) | payer OTHER ==
--- NOTE | 2019-02-01 16:48 | PDOC ---
History of Present Illness - General Chief Complaint: Syncope/Near Syncope Stated Complaint: Syncope/Near Syncope Time Seen by Provider: 02/01/19 16:19 - History of Present Illness Initial Comments: 02/01/19 18:21 HPI: 68 y/o M with hx og HTN, HLD, gastritis, prostate bx ~6 weeks ago c/b abscess, sepsis, bacteremia BIBEMS for syncopal episode. Patient states he was sitting in the office at work when he noted that his coworkers were trying to wake him up. He was told he wasnt responding and appeared to pass out. EMS was called. Patient currently feels well and states he was feeling well before the episode. Patient denies fever, chills, night sweats, MCDONOUGH, vision change, chest pain, palpitations, SOB, cough, leg swelling, abdominal pain, nausea, vomiting, incontinence, dysuria, hematuria, BPR, lightheadedness, weakness, sensory changes. Patient has not had any recent travel. 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 No weakness. HEAD, EYES, EARS, NOSE AND THROAT: No change in vision. No ear pain or discharge. No sore throat. CARDIOVASCULAR: No chest pain or shortness of breath RESPIRATORY: No cough, wheezing, or hemoptysis. GASTROINTESTINAL: No nausea, vomiting, diarrhea or constipation. GENITOURINARY: No dysuria, frequency, or change in urination. MUSCULOSKELETAL: No joint or muscle swelling or pain. No neck or back pain. SKIN: No rash NEUROLOGIC: +LOC; No headache, vertigo, or change in strength/sensation. ENDOCRINE: No increased thirst. No abnormal weight change HEMATOLOGIC/LYMPHATIC: No anemia, easy bleeding, or history of blood clots. ALLERGIC/IMMUNOLOGIC: No hives or skin allergy. PE: GENERAL: Awake, alert, and fully oriented, no acute distress HEAD: No signs of trauma, normocephalic, atraumatic EYES: EOMI, sclera anicteric, conjunctiva clear ENT: Auricles normal inspection, hearing grossly normal, nares patent, oropharynx clear without exudates. Moist mucosa NECK: Normal ROM, no lymphadenopathy LUNGS: No increased work of breathing, symmetrical chest rise, clear to auscultation bilaterally, no wheezes, crackles or rhonchi HEART: Regular rate and rhythm, normal S1 and S2, no murmurs, peripheral pulses 2+ and equal bilaterally. ABDOMEN: Soft, nondistended, nontender, normoactive bowel sounds. No guarding, no rebound. No masses. No CVAT EXTREMITIES: Normal inspection, Normal range of motion, no edema. No clubbing or cyanosis. NEUROLOGICAL: Cranial nerves II through XII grossly intact. Normal speech, normal gait, no focal sensorimotor deficits SKIN: Warm, Dry, normal turgor, no rashes or lesions noted Past History - Past Medical History Allergies/Adverse Reactions: Allergies Allergy/AdvReac Type Severity Reaction Status Date / Time No Known Allergies Allergy Verified 02/01/19 16:04 Home Medications: Ambulatory Orders Unobtainable 02/01/19 COPD: No Disorders: Yes (BPH s/p prostate biopsy 12/17) HTN: Yes Hypercholesterolemia: Yes - Surgical History Cardiac Surgery: No Neurologic Surgery: No - Psycho Social/Smoking Cessation Hx Smoking History: Never smoked Have you smoked in the past 12 months: No Information on smoking cessation initiated: No Hx Alcohol Use: No Drug/Substance Use Hx: No Substance Use Type: None Hx Substance Use Treatment: No *Physical Exam - Vital Signs Last Vital Signs Temp Pulse Resp BP Pulse Ox 98.6 F 132 H 18 165/102 H 100 02/01/19 16:27 02/01/19 15:55 02/01/19 15:55 02/01/19 15:55 02/01/19 15:55 ED Treatment Course - LABORATORY CBC & Chemistry Diagram: 02/01/19 16:25 02/01/19 18:00 Medical Decision Making - Medical Decision Making 02/01/19 19:05 68 y/o M with hx of HTN, HLD, gastritis, prostate bx ~6 weeks ago c/b abscess, sepsis, bacteremia BIBEMS for syncopal episode with no other symptoms. HR elevated 130s-140s and BP 165/102. PE unremarkable. Concern for PE with wells 4.5 -cbc, cmp, bnp, mg, phos, ua, ucx, trop, tsh, ekg, cxr -CTA chest and CTA abd/pel w/ and w/out con 02/01/19 20:46 elevated lactate HR and BP remains elevated to 130s; start 500cc bolus remainder of labs unremarkable CT negative with no acute process, however cannot rule out PE due to inadequate study; patient may need to repeat CT if HR remains elevated 02/01/19 20:48 Symptoms may be due to recent claritin D use mimicking sympathetic stimulation however, doesnt explain syncope will admit to tele obs for syncope under dr lancaster Discharge - Discharge Information Problems reviewed: Yes Clinical Impression/Diagnosis: Syncope, Tachycardia Condition: Fair - Admission Yes - Follow up/Referral Referrals: Dmitri Lema MD [Primary Care Provider] - - Patient Discharge Instructions - Post Discharge Activity
[2019-02-01 17:05] LABS: BASO % 0.8 % (0-2.0); HEMATOCRIT 39.5 % (35.4-49); HEMOGLOBIN 12.9 GM/dL (11.7-16.9); LYMPH % 22.3 % (8-40); MCH 26.3 pg (25.7-33.7); MCHC 32.7 g/dl (32.0-35.9); MEAN CELL VOLUME 80.3 fl (80-96); MEAN PLT VOLUME 7.7 fl (7.5-11.1); MONO % 6.9 % (3.8-10.2); PLATELET COUNT 305 K/MM3 (134-434); RBC 4.92 M/mm3 (4.00-5.60); RDW 15.4 % (11.9-15.9); WHITE BLOOD COUNT 7.8 K/mm3 (4.0-10.0)
[2019-02-01 17:18] LABS: INR 0.98 (0.83-1.09); PROTHROMBIN TIME (PATIENT) 11.6 SEC (9.7-13.0)
[2019-02-01 17:21] LABS: ACTIVATED PTT 30.1 SECONDS (25.2-36.5)
[2019-02-01 18:18] LABS: VENOUS PC02 45.9 mmHg (38-52); VENOUS PH 7.37 (7.31-7.41)
[2019-02-01 18:19] LABS: VENOUS PO2 < 49 mmHg (28-48)
[2019-02-01 18:42] LABS: N-TERMINAL BNP 11.2 pg/ml (5-125)
[2019-02-01 18:46] LABS: ALBUMIN 3.7 g/dl (3.4-5.0); BILIRUBIN,TOTAL 0.3 mg/dL (0.2-1); BLOOD UREA NITROGEN 14.7 mg/dL (7-18); CALCIUM 8.9 mg/dL (8.5-10.1); CREATININE 1.1 mg/dL (0.55-1.3); TOT PROT 7.7 g/dl (6.4-8.2)
[2019-02-01] MEDS ORDERED: SODIUM CHLORIDE 500 ML IV STA (19:59)
[2019-02-01 20:00] LABS: EPI CELLS 0.6 /HPF (0-5/HPF); HYALINE CASTS 1 /lpf (0-8); PH,URINE 7.5 (5.0-8.0); URINE APPEARANCE CLEAR; URINE BACTERIA 4.1 /hpf (NEGATIVE); URINE BILIRUBIN NEGATIVE (NEGATIVE); URINE COLOR DK YELLOW; URINE GLUCOSE (UA) TRACE (NEGATIVE); URINE KETONE NEGATIVE (NEGATIVE); URINE LEUK ESTERASE NEGATIVE (NEGATIVE); URINE NITRITE NEGATIVE (NEGATIVE); URINE PROTEIN 2+ (NEGATIVE); URINE RBC 1 /hpf (0-4); URINE UROBILINOGEN 0.2 mg/dL (0.2-1.0); URINE WBC 1 /hpf (0-5)
--- NOTE | 2019-02-01 21:32 | PDOC ---
Documentation entered by Debi Stallings SCRIBE, acting as scribe for Elena Ventura MD. Elena Ventura MD: This documentation has been prepared by the Haylie armstrong Nirvannie, SCRIBE, under my direction and personally reviewed by me in its entirety. I confirm that the documentation accurately reflects all work, treatment, procedures, and medical decision making performed by me. Attending Attestation - Resident Resident Name: ZhouDavidyemi - ED Attending Attestation I have performed the following: I have examined & evaluated the patient, The case was reviewed & discussed with the resident, I agree w/resident's findings & plan, Exceptions are as noted - HPI HPI: 02/01/19 18:53 The patient is a 68 year old male, with a significant past medical history of hypercholesterolemia, hypertension, gastritis, recent admission 2 months ago for ecoli bacteremia who presents to the emergency department s/p episode of loss of consciousness. As per patient, he was at home in the [place] when he took a Claritin-D for allergy symptoms, then went to his job at the [employer] where he had a witnessed episode of LOC while sitting in a chair. Patient does not recall what occurred and just remembers waking up to the paramedics. At this time, pt denies any symptoms. Denies preceding headache, CP, palpiations, dizziness, SOB. Denies urine incontinence or tongue biting He denies any recent fevers, chills, headache or dizziness. He denies any recent nausea, vomiting, diarrhea or constipation.He denies any recent dysuria, frequency, urgency or hematuria. Allergies: NKDA Surgical History: Transurethral resection Social History: Denies EtOH, tobacco, or illicit drug use Primary Care Physician: Dr. Bass - Physicial Exam PE: 02/01/19 21:19 GENERAL: Awake, alert, and fully oriented, in no acute distress HEAD: No signs of trauma EYES: PERRLA, EOMI, sclera anicteric, conjunctiva clear ENT: Auricles normal inspection, hearing grossly normal, nares patent, oropharynx clear without exudates. Moist mucosa NECK: Normal ROM, supple, no lymphadenopathy, JVD, or masses LUNGS: Breath sounds equal, clear to auscultation bilaterally. No wheezes, and no crackles HEART: Tachycardic to 128 but regular, normal S1 and S2, no murmurs, rubs or gallops ABDOMEN: Soft, nontender, normoactive bowel sounds. No guarding, no rebound. No masses EXTREMITIES: Normal range of motion, no edema. No clubbing or cyanosis. No cords, erythema, or tenderness NEUROLOGICAL: Normal speech, cranial nerves intact, 5/5 strength in all 4 extremities, normal sensation to light touch in all 4 extremities, normal cerebellar exam, normal gait, normal reflexes and tone SKIN: Warm, Dry, normal turgor, no rashes or lesions noted. BP RUE 164/101. LUE 168/104 - Medical Decision Making 02/01/19 21:20 68-year-old male with a history of hypertension, hyperlipidemia, gastritis and recent admission for gram-negative bacteremia and urosepsis presents the emergency department with syncopal episode. Vitals remarkable for elevated blood pressure and tachycardia. Patient reports compliance with all of his medications. Syncopal episode was preceded by the patient taking Claritin-D. Differential includes infection versus dehydration versus PE vs arrythmia CTA chest, abd, pelvis limited for PE but negative for central PE. No evidence of infection (rectal temp normal). No anemia, metabolic abnl. EKG sinus tach. Tachycardia/HTN possibly 2/2 pseudophedrine in claritin D? Pt states he only took 1 pill. Despite elevated BP, will trial 500cc fluids to see if dehydration is cause of syncope and tachycardia Plan to admit for syncope 02/01/19 22:04 Case signed out to hospitalist team by Dr. Epperson Case discussed in detail with admitting physician including history, physical exam and ancillary studies. Admitting physician has assumed care for the patient, will follow all pending diagnostics and will complete the evaluation and treatment.
--- NOTE | 2019-02-01 21:39 | PN ---
Teaching Attending Note Name of Resident: Robyn Carter ATTENDING PHYSICIAN STATEMENT I saw and evaluated the patient. I reviewed the resident's note and discussed the case with the resident. I agree with the resident's findings and plan as documented. SUBJECTIVE: Patient is a 68 year old man with PMH of HTN, HLD, Gastritis, Prostate biopsy ~ 6 weeks ago (complicated by abscess/E. coli sepsis), brought by EMS for syncopal episode. As per patient, he was at home in the [place] when he took a Claritin-D for allergy symptoms, then went to his job at the [employer] where he had a witnessed episode of LOC while sitting in a chair. Patient does not recall what occurred and just remembers waking up to the paramedics. Patient says he takes a lot of alternative medicine products - does not remember the names of any of his medications. His is supposed to bring his medications. Patient currently feels well and states he was feeling well before the episode. Patient denies fever, chills, night sweats, headache, vision change, chest pain , palpitations, SOB, cough, leg swelling, abdominal pain, nausea, vomiting, incontinence, dysuria, hematuria, BPR, lightheadedness, weakness or sensory changes. Patient has not had any recent travel. 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 Denies tobacco, alcohol or illicit drug use. OBJECTIVE: Alert Vital Signs Period Temp Pulse Resp BP Sys/Crespo Pulse Ox Last 24 Hr 98.1 F-98.8 F 123-132 18-20 164-182/101-120 98-100 HEENT: No Jaundice, eye redness or discharge, PERRLA, EOMI. Normocephalic, atraumatic. External ears are normal and hearing is grossly intact. No nasal discharge. Neck: Supple, nontender. No palpable adenopathy or thyromegaly. No JVD Chest: Good effort. Clear to auscultation and percussion. Heart: Regular. No S3, rub or murmur Abdomen: Not distended, soft, nontender and no HSM. No rebound or guarding. Normal bowel sounds. Ext: Peripheral pulses intact. No leg edema. Skin: Warm and dry. No petechiae, rash or ecchymosis. Neuro: Alert. Oriented x3. CN 2-12 grossly intact. Sensation grossly intact in all four extremities and DTR are symmetric. Psych: Appropriate mood and affect. Good insight. Home Medications Medication Instructions Recorded Unobtainable 02/01/19 Abnormal Lab Results 02/01/19 02/01/19 02/01/19 18:00 18:00 18:00 POC VBG pO2 < 49 H VBG O2 Sat (Rolf) 57.0 L Random Glucose 122 H Lactic Acid 3.3 H* Urine Protein 02/01/19 19:00 POC VBG pO2 VBG O2 Sat (Rolf) Random Glucose Lactic Acid Urine Protein 2+ H ASSESSMENT AND PLAN: 1. Syncope - Etiology unclear. Associated isolated lactic acidosis suggests a seizure. Will get brain CT, urine toxicology, EEG, ECHO, carotid doppler, monitor on telemetry and do neurochecks and implement fall precautions. Consult Neurology and get HbA1c. EKG shows sinus tachycardia with biatrial enlargement and nonspecific T wave changes. His BP was high on arrival - will await CT head results before any treatment for hypertension. CTA chest/abdomen/pelvis didnot show any embolism or vessel occlusion - hepatic steatosis and enlarged prostate noted. CXR shows wide mediastinum and RLL atelectasis/infiltrate. Lactic acidosis is unexplained. Will give IV NS and trend lactic acid. Will continue comprehensive care for all of patients comorbid conditions. 2. Uncontrolled hypertension - Restart suitable outpatient antihypertensive drugs when clinically appropriate - after head CT. 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 Nonpharmacologic measures to control hypertension like weight loss, salt restriction and exercise discussed. Importance of adherence to treatment regimen and attainment of normotension emphasized. 3. DVT prophylaxis - Lovenox 40 mg SQ q 24 hours. 4. Advance directives - Full code
--- NOTE | 2019-02-01 21:48 | HP ---
CHIEF COMPLAINT: Syncope PCP: Pita Rizvi HISTORY OF PRESENT ILLNESS: Pt is a 68 yo M, PMHx of HLD, HTN, gastritis, s/p prostate biopsy with ecoli bacteremia on recent admission BIBA from work for syncope. 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 Per ED, co-workers noted him to have collapsed and unaware of his surroundings and they called for an ambulance. Pt reports taking natural supplements consistently in addition to his regular meds only adding the claritin D as a new med today. Denies fevers, chest pain, dysuria. Pt reports feeling fine. In the ED he was noted to have elevated BP with diastolic over 100, and pt reported taking his BP meds in am so did not receive any meds. Pt reports taking natural supplements including-turmeric curcumin, maximum strength green tea, cholestoff plus, flaxseed oil, centrum silver, prostate plus health complex, primal optimal vascular health ER course was notable for: (1) CTA- neg for PE (2) EKG- sinus [id number], nl ais, nl intervals, biatrial enlargement, T wave flattening II,II, V5, V6 (3) Recent Travel: PAST MEDICAL HISTORY: As above PAST SURGICAL HISTORY: Prostate biopsy Social History: Smoking: Alcohol: Drugs: Allergies No Known Allergies Allergy (Verified 02/01/19 16:04) HOME MEDICATIONS: Home Medications Medication Instructions Recorded Unobtainable 02/01/19 REVIEW OF SYSTEMS Denies except as above PHYSICAL EXAMINATION Vital Signs - 24 hr 02/01/19 02/01/19 02/01/19 15:55 16:27 18:04 Temperature 98.8 F 98.6 F Pulse Rate 132 H Pulse Rate [ 123 H Right Brachial] Respiratory 18 20 Rate Blood Pressure 165/102 H Blood Pressure 182/120 H [Right Arm] O2 Sat by Pulse 100 99 Oximetry (%) 02/01/19 02/01/19 02/01/19 18:09 19:44 19:51 Temperature 98.1 F Pulse Rate Pulse Rate [ 127 H Right Brachial] Respiratory 18 Rate Blood Pressure Blood Pressure 164/101 H [Right Arm] O2 Sat by Pulse 99 98 Oximetry (%) GENERAL: Awake, alert, and fully oriented, in no acute distress. HEAD: Normal with no signs of trauma. EYES: Pupils equal, round and reactive to light, extraocular movements intact, sclera anicteric, conjunctiva clear. EARS, NOSE, THROAT: Ears normal, nares patent, oropharynx clear without exudates. Moist mucous membranes. NECK: Normal range of motion, supple without lymphadenopathy, JVD, or masses. LUNGS: Breath sounds equal, clear to auscultation bilaterally. No wheezes, and no crackles. HEART: tachycardic, S1 and S2 without murmur ABDOMEN: Soft, nontender, not distended, normoactive bowel sounds, no guarding, no rebound, no masses. MUSCULOSKELETAL: Normal range of motion at all joints. No bony deformities or tenderness. No CVA tenderness. LOWER EXTREMITIES: 2+ pulses, warm, well-perfused. No calf tenderness. No peripheral edema. NEUROLOGICAL: Cranial nerves II-XII intact. Normal speech. Gait not observed. PSYCHIATRIC: Cooperative. Good eye contact. Appropriate mood and affect. SKIN: Warm, dry, normal turgor, no rashes or lesions noted, normal capillary refill. Laboratory Results - last 24 hr 02/01/19 02/01/19 02/01/19 16:25 16:25 16:25 WBC 7.8 RBC 4.92 Hgb 12.9 Hct 39.5 MCV 80.3 MCH 26.3 MCHC 32.7 RDW 15.4 Plt Count 305 D MPV 7.7 Absolute Neuts (auto) 5.4 Neutrophils % 69.0 D Lymphocytes % 22.3 Monocytes % 6.9 Eosinophils % 1.0 D Basophils % 0.8 Nucleated RBC % 0 PT with INR 11.60 INR 0.98 PTT (Actin FS) 30.1 VBG pH POC VBG pCO2 POC VBG pO2 VBG HCO3 VBG O2 Sat (Rolf) VBG Base Excess Sodium Potassium Chloride Carbon Dioxide Anion Gap BUN Creatinine Est GFR (CKD-EPI)AfAm Est GFR (CKD-EPI)NonAf Random Glucose Lactic Acid Calcium Magnesium Total Bilirubin AST ALT Alkaline Phosphatase Creatine Kinase 126 Troponin I < 0.02 B-Natriuretic Peptide 11.2 Total Protein Albumin TSH Urine Color Urine Appearance Urine pH Ur Specific [place] Urine Protein Urine Glucose (UA) Urine Ketones Urine Blood Urine Nitrite Urine Bilirubin Urine Urobilinogen Ur Leukocyte Esterase Urine WBC (Auto) Urine RBC (Auto) Urine Casts (Auto) U Epithel Cells (Auto) Urine Bacteria (Auto) 02/01/19 02/01/19 02/01/19 16:25 16:25 18:00 WBC RBC Hgb Hct MCV MCH MCHC RDW Plt Count MPV Absolute Neuts (auto) Neutrophils % Lymphocytes % Monocytes % Eosinophils % Basophils % Nucleated RBC % PT with INR INR PTT (Actin FS) VBG pH POC VBG pCO2 POC VBG pO2 VBG HCO3 VBG O2 Sat (Rolf) VBG Base Excess Sodium Cancelled 139 Potassium Cancelled 4.0 Chloride Cancelled 104 Carbon Dioxide Cancelled 26 Anion Gap Cancelled 8 BUN Cancelled 14.7 Creatinine Cancelled 1.1 Est GFR (CKD-EPI)AfAm Cancelled 78.41 Est GFR (CKD-EPI)NonAf Cancelled 67.66 Random Glucose Cancelled 122 H Lactic Acid Calcium Cancelled 8.9 Magnesium 2.3 Total Bilirubin Cancelled 0.3 AST Cancelled 20 ALT Cancelled 37 Alkaline Phosphatase Cancelled 79 Creatine Kinase Troponin I B-Natriuretic Peptide Total Protein Cancelled 7.7 Albumin Cancelled 3.7 TSH 2.65 Urine Color Urine Appearance Urine pH Ur Specific [place] Urine Protein Urine Glucose (UA) Urine Ketones Urine Blood Urine Nitrite Urine Bilirubin Urine Urobilinogen Ur Leukocyte Esterase Urine WBC (Auto) Urine RBC (Auto) Urine Casts (Auto) U Epithel Cells (Auto) Urine Bacteria (Auto) 02/01/19 02/01/19 02/01/19 18:00 18:00 19:00 WBC RBC Hgb Hct MCV MCH MCHC RDW Plt Count MPV Absolute Neuts (auto) Neutrophils % Lymphocytes % Monocytes % Eosinophils % Basophils % Nucleated RBC % PT with INR INR PTT (Actin FS) VBG pH 7.37 POC VBG pCO2 45.9 POC VBG pO2 < 49 H VBG HCO3 26.2 VBG O2 Sat (Rolf) 57.0 L VBG Base Excess 1.0 Sodium Potassium Chloride Carbon Dioxide Anion Gap BUN Creatinine Est GFR (CKD-EPI)AfAm Est GFR (CKD-EPI)NonAf Random Glucose Lactic Acid 3.3 H* Calcium Magnesium Total Bilirubin AST ALT Alkaline Phosphatase Creatine Kinase Troponin I B-Natriuretic Peptide Total Protein Albumin TSH Urine Color Dk yellow Urine Appearance Clear Urine pH 7.5 Ur Specific [place] 1.015 Urine Protein 2+ H Urine Glucose (UA) Trace Urine Ketones Negative Urine Blood Negative Urine Nitrite Negative Urine Bilirubin Negative Urine Urobilinogen 0.2 Ur Leukocyte Esterase Negative Urine WBC (Auto) 1 Urine RBC (Auto) 1 Urine Casts (Auto) 1 U Epithel Cells (Auto) 0.6 Urine Bacteria (Auto) 4.1 Ambulatory Orders Aspirin 81 mg PO DAILY 02/02/19 Losartan 50Mg/Hctz 12.5MG [Hyzaar -] 1 tab PO DAILY 02/02/19 Omeprazole 20 mg PO DAILY 02/02/19 Pravastatin Sodium [Pravachol] 40 mg PO HS 02/02/19 Tamsulosin HCl 0.4 mg PO HS 02/02/19 ASSESSMENT/PLAN: Pt is a 68 yo M, PMHx of HLD, HTN, gastritis, s/p prostate biopsy with ecoli bacteremia on recent admission BIBA from work for syncope Syncope R/O TIA v Seizure Unclear etiology, pt with antihypertensive with diuretic, also on flomax, unlikely dehydration as pt was both tachycardic and hypertensive CT head stat R/O stroke- old infarcts no acute hemorrhage or infarct Utox- pending Trend lactic acid Neuro consult ECHO For possible EEG to r/o seizures with isolated lactic acid AMS R/O postictal state vs stroke Stroke less likely with CT imaging Consider EEG Neuro consult Elevated BP R/O hypertensive emergency/urgency vs stroke CT head neg for acute stroke Could be secondary to claritin D ingestion ( pseudoephedrine) Pt reports taking his antihypertensive earlier in the day Would reconcile meds and confirm absence of stroke prior to restarting antihypertensives Persistent Tachycardia Probably in setting of pseudoephrine use HLD, HTN,-Med rec in place to restart pt when confirmed gastritis- on PPI Enlarged prostate s/p biopsy On tamsolusin For PPx after confirming absence of hemorrhage Tele Visit type - Emergency Visit Emergency Visit: Yes ED Registration Date: 02/02/19 Care time: The patient presented to the Emergency Department on the above date and was hospitalized for further evaluation of their emergent condition. - New Patient This patient is new to me today: Yes Date on this admission: 02/02/19 - Critical Care Critical Care patient: No ATTENDING PHYSICIAN STATEMENT I saw and evaluated the patient. I reviewed the resident's note and discussed the case with the resident. I agree with the resident's findings and plan as documented. SUBJECTIVE: OBJECTIVE: ASSESSMENT AND PLAN:
[2019-02-02 05:33] LABS: ARTERIAL BLD GAS O2 SATURATION 92.5 % (95-98); ARTERIAL BLOOD GAS BASE EXCESS 1.3 meq/l (-2-2); ARTERIAL BLOOD GAS PCO2 40.6 mmHg (35-45); ARTERIAL BLOOD GAS PO2 71.2 mmHg (80-100); ARTERIAL BLOOD GAS pH 7.41 (7.35-7.45)
[2019-02-02 05:39] LABS: ALLENS TEST POSITIVE
[2019-02-02] MEDS ORDERED: ASPIRIN 81 MG CHEWABLE TABLETS ONE (09:25)
[2019-02-02] MEDS: ASPIRIN 81 MG CHEWABLE TABLETS PO SCH (09:27)
[2019-02-02] MEDS: LOSARTAN 50MG/HCTZ 12.5MG 1 TAB (FP) PO SCH (10:05)
[2019-02-02 12:41] LABS: COCAINE, UR NEGATIVE ng/ml (CUTOFF=300); METHADONE, UR NEGATIVE ng/ml (CUTOFF=300); OPIATES, URI NEGATIVE ng/ml (CUTOFF=300); PHENCYCLIDINE,URINE NEGATIVE ng/ml (CUTOFF=25); URINE AMPHETAMINES NEGATIVE ng/ml (CUTOFF=500); URINE BARBITURATES NEGATIVE ng/ml (CUTOFF=200); URINE BENZODIAZEPINES NEGATIVE ng/ml (CUTOFF=200)
--- NOTE | 2019-02-02 14:36 | PN ---
Progress Note, Physician Chief Complaint: feels well, no weakness,no dissiness, - Current Medication List Current Medications: Active Medications Aspirin (Asa -) 81 mg PO DAILY [facility] Last Admin: 02/02/19 09:27 Dose: 81 mg Atorvastatin Calcium (Lipitor -) 40 mg PO [facility] HCTZ/Losartan Potassium (Hyzaar -) 1 tab PO DAILY [facility] Last Admin: 02/02/19 10:05 Dose: 1 tab Tamsulosin HCl (Flomax -) 0.4 mg PO DAILY@0830 [facility] - Objective Vital Signs: Vital Signs Temperature 97.9 F 02/02/19 11:29 Pulse Rate 102 H 02/02/19 11:29 Respiratory Rate 20 02/02/19 11:29 Blood Pressure 167/93 02/02/19 11:29 O2 Sat by Pulse Oximetry (%) 95 02/02/19 11:29 Constitutional: Yes: Well Nourished, Calm Eyes: Yes: Conjunctiva Clear HENT: Yes: Normocephalic Neck: Yes: Supple, Trachea Midline Cardiovascular: Yes: Regular Rate and Rhythm, Bradycardia Respiratory: Yes: Regular, CTA Bilaterally Gastrointestinal: Yes: Normal Bowel Sounds Extremities: Yes: WNL Edema: No Neurological: Yes: WNL, Alert, Oriented ...Motor Strength: WNL Psychiatric: Yes: WNL Labs: CBC, BMP 02/01/19 16:25 02/01/19 18:00 INR, PTT INR 0.98 (0.83-1.09) 02/01/19 16:25 Impression/Plan Impression/Plan: ASSESSMENT/PLAN: Pt is a 68 yo M, PMHx of HLD, HTN, gastritis, s/p prostate biopsy BIBA from work for syncope Syncope R/O TIA v Seizure Unclear etiology, CT head stat R/O stroke- old infarcts no acute hemorrhage or infarct, official report pending, Utox- pending Trend lactic acid Neuro consult ECHO For possible EEG to r/o seizures with isolated lactic acid AMS R/O postictal state vs stroke Stroke less likely with CT imaging Consider EEG Neuro consult with dr ren pending, uncontrolled htn CT head neg for acute stroke Could be secondary to claritin D ingestion ( pseudoephedrine) resume meds, Tachycardia Probably in setting of pseudoephrine use now stable, Enlarged prostate s/p biopsy On tamsolusin Visit type - Emergency Visit Emergency Visit: No - New Patient This patient is new to me today: Yes Date on this admission: 02/02/19 - Critical Care Critical Care patient: No - Discharge Referral Referred to [facility] No
[2019-02-02 17:21] VITALS: BMI 28.7
--- NOTE | 2019-02-02 19:28 | CONSULT ---
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 PMH sig for HTN, Chol. Maintained on: Losartan, atorvastatin, tamsulosin and ASA 81mg. Yesterday took Claritin D for "allergies" around 10:30 and returned to [place] where he "fell asleep." When his coworkers tried to wake him for the school pick-up they found it difficult and called EMS. Now, Patient feels fine. In ER had normal orientation. CT of head (not yet reported): Normal LEONORA: BP 140-50/80-90. No bruits. Cor reg. NEURO: Awake, alert. MS/speech: Normal CN II-XII: normal Motor: No drift or tremor. Normal strength, bulk, tone and reflexes. Toes downgoing. Coord: No FTN dystaxia Sensory: Normal. Romberg neg Gait: Normal including Tandem. IMP: Normal neurological exam Suspect sedation due to Claritin. Doubt syncope etc. SUGGEST: Agree with telemetry x 24 hrs. Check orthostatic BP's Neuro f/u as out patient. Thank you very much, Srinivasan Lindsay MD
[2019-02-02] MEDS: ATORVASTATIN CA 40 MG TABLET (FP) PO SCH (23:14)
--- NOTE | 2019-02-02 23:19 | EKG ---
Test Reason : Blood Pressure : / mmHG Vent. Rate : 129 BPM Atrial Rate : 129 BPM P-R Int : 152 ms QRS Dur : 070 ms QT Int : 308 ms P-R-T Axes : 043 -04 049 degrees QTc Int : 451 ms SINUS TACHYCARDIA BIATRIAL ENLARGEMENT NONSPECIFIC T WAVE ABNORMALITY ABNORMAL ECG WHEN COMPARED WITH ECG OF 18-DEC-2018 12:35, NO SIGNIFICANT CHANGE WAS FOUND Confirmed by BASIL EPPS MD ([id number]) on 02/02/2019 11:18:32 PM Referred By: Confirmed By:BASIL EPPS MD
[2019-02-03 06:57] LABS: BASO % 0.7 % (0-2.0); HEMATOCRIT 41.4 % (35.4-49); HEMOGLOBIN 13.7 GM/dL (11.7-16.9); LYMPH % 34.2 % (8-40); MCH 26.5 pg (25.7-33.7); MCHC 33.1 g/dl (32.0-35.9); MEAN CELL VOLUME 80.2 fl (80-96); MEAN PLT VOLUME 7.8 fl (7.5-11.1); MONO % 8.8 % (3.8-10.2); NEUT % 51.3 % (42.8-82.8); PLATELET COUNT 319 K/MM3 (134-434); RBC 5.16 M/mm3 (4.00-5.60); RDW 15.2 % (11.9-15.9)
[2019-02-03 07:47] LABS: ALBUMIN 3.9 g/dl (3.4-5.0); BILIRUBIN,TOTAL 0.4 mg/dL (0.2-1); BLOOD UREA NITROGEN 18.5 mg/dL (7-18); CALCIUM 9.5 mg/dL (8.5-10.1); CREATININE 1.2 mg/dL (0.55-1.3); MAGNESIUM 2.2 mg/dL (1.8-2.4); PHOSPHOROUS 4.4 mg/dL (2.5-4.9); POTASSIUM 4.3 mmol/L (3.5-5.1); TOT PROT 7.6 g/dl (6.4-8.2)
[2019-02-03] MEDS: TAMSULOSIN HCL 0.4 MG CAP PO SCH (08:07)
[2019-02-03] MEDS: LOSARTAN 50MG/HCTZ 12.5MG 1 TAB (FP) PO SCH (09:25)
[2019-02-03] MEDS: ASPIRIN 81 MG CHEWABLE TABLETS PO SCH (09:25)
--- NOTE | 2019-02-03 12:40 | PN ---
Physical Exam: SUBJECTIVE: Patient seen and examined. He has no complaints. He denies chest pain, palpitations, SOB, dizziness. OBJECTIVE: Vital Signs Period Temp Pulse Resp BP Sys/Crespo Pulse Ox Last 24 Hr 97.5 F-98.3 F 96-112 18-20 135-166/93-109 95-98 GENERAL: The patient is awake, alert, and fully oriented, in no acute distress. LUNGS: Breath sounds equal, clear to auscultation bilaterally, no wheezes, no crackles, no accessory muscle use. HEART: Regular rhythm, tachycardic, S1, S2 without murmur, rub or gallop. ABDOMEN: Soft, nontender, nondistended, normoactive bowel sounds, no guarding, no rebound, no hepatosplenomegaly, no masses. EXTREMITIES: 2+ pulses, warm, well-perfused, no edema. Laboratory Results - last 24 hr 02/02/19 02/03/19 02/03/19 12:00 06:10 06:10 WBC 7.0 RBC 5.16 Hgb 13.7 Hct 41.4 MCV 80.2 MCH 26.5 MCHC 33.1 RDW 15.2 Plt Count 319 MPV 7.8 Absolute Neuts (auto) 3.6 Neutrophils % 51.3 D Lymphocytes % 34.2 D Monocytes % 8.8 Eosinophils % 5.0 H D Basophils % 0.7 Nucleated RBC % 0 Sodium 142 Potassium 4.3 Chloride 104 Carbon Dioxide 30 Anion Gap 9 BUN 18.5 H Creatinine 1.2 Est GFR (CKD-EPI)AfAm 70.58 Est GFR (CKD-EPI)NonAf 60.90 Random Glucose 103 Hemoglobin A1c % Calcium 9.5 Phosphorus 4.4 Magnesium 2.2 Total Bilirubin 0.4 AST 19 ALT 36 Alkaline Phosphatase 78 Total Protein 7.6 Albumin 3.9 Triglycerides 157 H Cholesterol 243 H Total LDL Cholesterol 175 H HDL Cholesterol 46 Vitamin B12 1652 H Opiates Screen Negative Methadone Screen Negative Barbiturate Screen Negative Phencyclidine Screen Negative Ur Amphetamines Screen Negative MDMA (Ecstasy) Screen Negative Benzodiazepines Screen Negative Cocaine Screen Negative U Marijuana (THC) Screen Negative 02/03/19 06:10 WBC RBC Hgb Hct MCV MCH MCHC RDW Plt Count MPV Absolute Neuts (auto) Neutrophils % Lymphocytes % Monocytes % Eosinophils % Basophils % Nucleated RBC % Sodium Potassium Chloride Carbon Dioxide Anion Gap BUN Creatinine Est GFR (CKD-EPI)AfAm Est GFR (CKD-EPI)NonAf Random Glucose Hemoglobin A1c % 6.4 H Calcium Phosphorus Magnesium Total Bilirubin AST ALT Alkaline Phosphatase Total Protein Albumin Triglycerides Cholesterol Total LDL Cholesterol HDL Cholesterol Vitamin B12 Opiates Screen Methadone Screen Barbiturate Screen Phencyclidine Screen Ur Amphetamines Screen MDMA (Ecstasy) Screen Benzodiazepines Screen Cocaine Screen U Marijuana (THC) Screen Active Medications Generic Name Dose Route Start Last Admin Trade Name Freq PRN Reason Stop Dose Admin Aspirin 81 mg 02/02/19 10:00 02/03/19 09:25 Asa - PO 81 mg DAILY JAYLA Administration Atorvastatin Calcium 40 mg 02/02/19 22:00 02/02/19 23:14 Lipitor - PO 40 mg HS JAYLA Administration HCTZ/Losartan Potassium 1 tab 02/02/19 10:00 02/03/19 09:25 Hyzaar - PO 1 tab DAILY JAYLA Administration Tamsulosin HCl 0.4 mg 02/03/19 08:30 02/03/19 08:07 Flomax - PO 0.4 mg DAILY@0830 JAYLA Administration ASSESSMENT/PLAN: This is a 68 year old man with a history of HTN, hyperlipidemia, gastritis who presented to the ED after passing out at work. 1. Syncope - Continue telemetry monitoring - Monitor shows sinus tachycardia - Check orthostatic vitals - Head CT shows no acute process - Chest CTA limited but shows no obvious central PE 2. Lactic acidosis - Resolved - Abdomen/pelvis CTA shows no acute pathology 3. Acute metabolic encephalopathy - Possibly hypertensive encephalopathy - Resolved 4. Sinus tachycardia - No obvious PE on chest CTA - TSH normal - Echo ordered - Check EKG, troponin - Start metoprolol - Cardiology evaluation 5. HTN, uncontrolled - Continue Hyzaar and monitor BP 6. Hyperlipidemia - Continue Lipitor 7. BPH - Continue Flomax Visit type - Emergency Visit Emergency Visit: Yes ED Registration Date: 02/02/19 Care time: The patient presented to the Emergency Department on the above date and was hospitalized for further evaluation of their emergent condition. - New Patient This patient is new to me today: Yes Date on this admission: 02/03/19 - Critical Care Critical Care patient: No - Discharge Referral Referred to [facility] No
[2019-02-03] MEDS ORDERED: METOPROLOL TARTRATE 5 MG/5 ML VIAL IVPUSH ONE (13:12)
[2019-02-03] MEDS: ATORVASTATIN CA 40 MG TABLET (FP) PO SCH (21:52)
[2019-02-03] MEDS ORDERED: metoPROLOL SUCCINATE 25 MG TAB.SR.24H (FP) PO SCH (22:00)
--- NOTE | 2019-02-04 00:53 | EKG ---
Test Reason : Blood Pressure : / mmHG Vent. Rate : 103 BPM Atrial Rate : 103 BPM P-R Int : 148 ms QRS Dur : 064 ms QT Int : 324 ms P-R-T Axes : 052 000 044 degrees QTc Int : 424 ms SINUS TACHYCARDIA OTHERWISE NORMAL ECG WHEN COMPARED WITH ECG OF 01-FEB-2019 16:01, NO SIGNIFICANT CHANGE WAS FOUND Confirmed by BASIL EPPS MD ([id number]) on 02/04/2019 12:53:15 AM Referred By: Gennaro FLYNN Confirmed By:BASIL EPPS MD
--- NOTE | 2019-02-04 08:00 | PN ---
Progress Note, Physician Chief Complaint: Pt without further somolence, ambulating in hallway,would like to go home History of Present Illness: Pt is a 68 yo M, PMHx of HLD, HTN, gastritis, s/p prostate biopsy with ecoli bacteremia on recent admission BIBA from work for syncope. 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 Per ED, co-workers noted him to have collapsed and unaware of his surroundings and they called for an ambulance. Pt reports taking natural supplements consistently in addition to his regular meds only adding the claritin D as a new med today. Denies fevers, chest pain, dysuria. Pt reports feeling fine. In the ED he was noted to have elevated BP with diastolic over 100, and pt reported taking his BP meds in am so did not receive any meds. Pt reports taking natural supplements including-turmeric curcumin, maximum strength green tea, cholestoff plus, flaxseed oil, centrum silver, prostate plus health complex, primal optimal vascular health - Current Medication List Current Medications: Active Medications Aspirin (Asa -) 81 mg PO DAILY [facility] Last Admin: 02/03/19 09:25 Dose: 81 mg Atorvastatin Calcium (Lipitor -) 40 mg PO [facility] Last Admin: 02/03/19 21:52 Dose: 40 mg HCTZ/Losartan Potassium (Hyzaar -) 1 tab PO DAILY [facility] Last Admin: 02/03/19 09:25 Dose: 1 tab Metoprolol Succinate (Toprol Xl -) 12.5 mg PO [facility] Last Admin: 02/03/19 21:51 Dose: 12.5 mg Tamsulosin HCl (Flomax -) 0.4 mg PO DAILY@0830 [facility] Last Admin: 02/03/19 08:07 Dose: 0.4 mg - Objective Vital Signs: Vital Signs Temperature 98.3 F 02/04/19 05:44 Pulse Rate 94 H 02/04/19 05:44 Respiratory Rate 18 02/04/19 05:44 Blood Pressure 152/96 02/04/19 05:44 O2 Sat by Pulse Oximetry (%) 100 02/03/19 21:00 Constitutional: Yes: Well Nourished, No Distress, Calm Eyes: Yes: WNL, Conjunctiva Clear HENT: Yes: WNL, Atraumatic, Normocephalic Neck: Yes: WNL, Supple, Trachea Midline Cardiovascular: Yes: WNL, Regular Rate and Rhythm Respiratory: Yes: WNL, Regular, CTA Bilaterally Gastrointestinal: Yes: WNL, Normal Bowel Sounds ...Rectal Exam: Yes: Deferred Genitourinary: Yes: WNL Breast(s): Yes: WNL Musculoskeletal: Yes: WNL Extremities: Yes: WNL Peripheral Pulses WNL: Yes Peripheral Pulses: Left Radial: 2+, Right Radial: 2+, Left Doralis Pedis: 2+, Right Dorsalis Pedis: 2+, Left Femoral: 2+, Right Femoral: 2+ Integumentary: Yes: WNL Neurological: Yes: WNL, Alert, Oriented ...Motor Strength: WNL Psychiatric: Yes: WNL Labs: CBC, BMP 02/03/19 06:10 02/03/19 06:10 INR, PTT INR 0.98 (0.83-1.09) 02/01/19 16:25 - ....Imaging EKG: Pending Problem List - Problems (1) HLD (hyperlipidemia) Assessment/Plan: c/w atorvastatin low cholesterol diet Code(s): E78.5 - HYPERLIPIDEMIA, UNSPECIFIED (2) Prophylactic measure Assessment/Plan: FEN regular diet no additional IVF, adequate PO intake monitor electrolytes and Cr DVT heparin sq Dispo maintain in tele full code discharge planning Code(s): Z29.9 - ENCOUNTER FOR PROPHYLACTIC MEASURES, UNSPECIFIED (3) HTN (hypertension) Assessment/Plan: BP better controlled c/w hyzaar up titrating dose if needed cardiology following, appreciate recs plasma fractionated metanephrines, 24 hr urine metanephrines/catecholamines for pheo eval Code(s): I10 - ESSENTIAL (PRIMARY) HYPERTENSION (4) Gastritis Assessment/Plan: c/w omeprozole Code(s): K29.70 - GASTRITIS, UNSPECIFIED, WITHOUT BLEEDING (5) BPH (benign prostatic hyperplasia) Assessment/Plan: c/w flomax Code(s): N40.0 - BENIGN PROSTATIC HYPERPLASIA WITHOUT LOWER URINRY TRACT SYMP (6) Acute metabolic encephalopathy Assessment/Plan: mental status back to baseline etiology unclear, 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 and 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 HCT withoput acute pathology appreciate neuro consultation Code(s): G93.41 - METABOLIC ENCEPHALOPATHY (7) Syncope Assessment/Plan: no futher epsidoe of syncope TTE pending fall precautions Code(s): R55 - SYNCOPE AND COLLAPSE (8) Tachycardia Assessment/Plan: started on low dose toprol HR flucuating-highest 130 additional IVP metoprolol increase dose to 25mg Code(s): R00.0 - TACHYCARDIA, UNSPECIFIED Visit type - Emergency Visit Emergency Visit: Yes ED Registration Date: 02/02/19 Care time: The patient presented to the Emergency Department on the above date and was hospitalized for further evaluation of their emergent condition. - New Patient This patient is new to me today: Yes Date on this admission: 02/04/19 - Critical Care Critical Care patient: No - Discharge Referral Referred to [facility] No
[2019-02-04] MEDS: TAMSULOSIN HCL 0.4 MG CAP PO SCH (09:00)
[2019-02-04] MEDS: LOSARTAN 50MG/HCTZ 12.5MG 1 TAB (FP) PO SCH (09:10)
[2019-02-04] MEDS: ASPIRIN 81 MG CHEWABLE TABLETS PO SCH (09:10)
--- NOTE | 2019-02-04 09:45 | CON.CARD ---
Consult Consult Specialty:: cardio - History of Present Illness Chief Complaint: syncope History of Present Illness: 68 yo male here with syncope. 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 Per ED, co-workers noted him to be on the ground and not responsive to him initially, unaware of his surroundings and they called for an ambulance. Pt reports taking natural supplements consistently in addition to his regular meds only adding the claritin D as a new med pt states he does not recall when they were allegedly shaking him vigorously to try to wake him denies any LH/dizzy/presyncope or syncope including walks 2-3 miles a day sometimes. also never cp, sob, palpitations. currently feels well in USOH HR initially 100s-130s-->improved so far today BP initially 160s/100s-->improved slightly today + lactic acidosis-->resolved BUN/creat normal troponin neg x 3 LDL 175 CTA chest: TDS, no PE, clear lungs/pleura. CT head: no acute pathology PMH: HTN HPL gastrits - Alcohol/Substance Use Hx Alcohol Use: No - Smoking History Smoking history: Never smoked Have you smoked in the past 12 months: No Home Medications - Allergies Allergies/Adverse Reactions: Allergies Allergy/AdvReac Type Severity Reaction Status Date / Time No Known Allergies Allergy Verified 02/01/19 16:04 - Home Medications Home Medications: Ambulatory Orders Aspirin 81 mg PO DAILY 02/02/19 Losartan 50Mg/Hctz 12.5MG [Hyzaar -] 1 tab PO DAILY 02/02/19 Omeprazole 20 mg PO DAILY 02/02/19 Pravastatin Sodium [Pravachol] 40 mg PO HS 02/02/19 Tamsulosin HCl 0.4 mg PO HS 02/02/19 Family Medical History Family History: Denies (no known cmp) Review of Systems - Review of Systems Constitutional: denies: Chills, Fever Eyes: denies: Eye Pain HENT: denies: Nasal Congestion Neck: denies: Stiffness Cardiovascular: denies: Palpitations Respiratory: denies: Orthopnea, PND Gastrointestinal: denies: Diarrhea, Rectal Bleeding Genitourinary: denies: Burning, Hematuria Musculoskeletal: denies: Muscle Pain Integumentary: denies: Rash Neurological: reports: Syncope. denies: Numbness, Seizure Endocrine: denies: Excessive Sweating Hematology/Lymphatic: denies: Excessive Bleeding Vital Signs: Vital Signs Temperature 98.3 F 02/04/19 05:44 Pulse Rate 94 H 02/04/19 05:44 Respiratory Rate 18 02/04/19 05:44 Blood Pressure 152/96 02/04/19 05:44 O2 Sat by Pulse Oximetry (%) 100 02/03/19 21:00 Constitutional: Yes: Well Nourished, No Distress Eyes: No: Sclera Icterus HENT: No: Nasal Congestion Neck: No: Decreased ROM Respiratory: Yes: CTA Bilaterally. No: Accessory Muscle Use, Rales, Wheezes Gastrointestinal: Yes: Normal Bowel Sounds. No: Distention, Hepatomegaly, Palpable Mass, Tenderness Cardiovascular: Yes: Regular Rate and Rhythm JVD: No Carotid Bruit: No PMI: Non-Displaced Heart Sounds: Yes: S1, S2. No: Gallop Murmur: No: Systolic Murmur, Diastolic Murmur Musculoskeletal: Yes: Other (No kyphosis) Extremities: No: Cool, Cyanosis Edema: No Peripheral Pulses: 2+ Left Carotid, 2+ Right Carotid, 2+ Left Doralis Pedis, 2+ Right Dorsalis Pedis Integumentary: No: Jaundice Neurological: Yes: Alert, Oriented (x3) Psychiatric: No: Agitated - Other Data Labs, Other Data: CBC, BMP 02/03/19 06:10 02/03/19 06:10 INR, PTT INR 0.98 (0.83-1.09) 02/01/19 16:25 Troponin, BNP 02/03/19 02/03/19 14:50 19:35 Troponin I < 0.02 < 0.02 Troponin, BNP 02/03/19 02/03/19 14:50 19:35 Troponin I < 0.02 < 0.02 Assessment/Plan ECG #1: NSR. ? DC, ? RAA. mild flattened T waves lateral leads new vs 12/15. 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 atrial enlargement on ECG--not a new finding (seen on 12/15 tracing as well) -bp improved, continue present meds including low dose b-sara -observe trend--low threshold to incr losartan dose or HCTZ or both -check plasma fractionated metanephrines, 24 hr urine metanephrines/ catecholamines for pheo eval HPL: -LDL uncontrolled (170s) -on prava 40 at home--taking? 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 he verbalizes understanding (in [place]) and requests a letter for his employer, which i assured him would be provided. agrees to complete w/u with us as outpatient
[2019-02-04 12:24] LABS: BASO % 1.2 % (0-2.0); EOS % 2.9 % (0-4.5); HEMATOCRIT 43.6 % (35.4-49); HEMOGLOBIN 14.1 GM/dL (11.7-16.9); LYMPH % 30.3 % (8-40); MCH 26.2 pg (25.7-33.7); MCHC 32.4 g/dl (32.0-35.9); MEAN CELL VOLUME 80.9 fl (80-96); MEAN PLT VOLUME 8.1 fl (7.5-11.1); MONO % 8.8 % (3.8-10.2); NEUT % 56.8 % (42.8-82.8); PLATELET COUNT 357 K/MM3 (134-434); RBC 5.39 M/mm3 (4.00-5.60); RDW 15.1 % (11.9-15.9)
[2019-02-04 12:58] LABS: ALBUMIN 3.9 g/dl (3.4-5.0); BILIRUBIN,TOTAL 0.4 mg/dL (0.2-1); BLOOD UREA NITROGEN 22.8 mg/dL (7-18); CALCIUM 9.6 mg/dL (8.5-10.1); CREATININE 1.1 mg/dL (0.55-1.3); MAGNESIUM 2.4 mg/dL (1.8-2.4); POTASSIUM 3.9 mmol/L (3.5-5.1); TOT PROT 7.9 g/dl (6.4-8.2)
[2019-02-04] MEDS ORDERED: metoPROLOL SUCCINATE 25 MG TAB.SR.24H (FP) PO SCH (15:20)
--- NOTE | 2019-02-04 16:09 | ECHO ---
Name: JENNINGS ROYAL Exam:Adult Echocardiogram Study Date: 02/04/2019 10:45 AM Age: 68 yrs Height: 64 in Weight: 168 lb BSA: 1.8 m2 MMode/2D Measurements & Calculations IVSd: 0.84 cm Ao root diam: 2.7 cm LVIDd: 3.8 cm LA dimension: 2.7 cm LVIDs: 2.1 cm LVPWd: 0.87 cm LVPWs: 1.0 cm EDV(Teich): 60.6 ml ESV(Teich): 14.8 ml LVOT diam: 1.8 cm Doppler Measurements & Calculations MV E max humberto: 50.8 cm/sec Ao V2 max: 137.1 cm/sec MV A max humberto: 87.4 cm/sec Ao max P.5 mmHg MV E/A: 0.58 MV dec time: 0.06 sec RO(V,D): 1.4 cm2 LV V1 max P.2 mmHg TR max humberto: 267.4 cm/sec LV V1 max: 74.5 cm/sec TR max P.6 mmHg PA V2 max: 109.9 cm/sec Med Peak E' Humberto: 4.7 cm/sec PA max P.8 mmHg Med E/e': 10.8 Lat Peak E' Humberto: 11.0 cm/sec Lat E/e': 4.6 Procedure A complete two-dimensional transthoracic echocardiogram was performed (2D, M-mode, Doppler and color flow Doppler). Left Ventricle The left ventricle is normal in size. Left ventricular systolic function is normal. Ejection Fraction = 65- 70%. Grade I diastolic dysfunction, (abnormal relaxation pattern). Ratio E/E'= 10. No regional wall m otion abnormalities noted. Right Ventricle The right ventricle is normal size. The right ventricular systolic function is normal. RV systolic TD I is 13 cm/s. Atria The left atrial size is normal. Right atrial size is normal. Redundant interatrial septum. Mitral Valve There is mild mitral annular calcification. There is trace to mild mitral regurgitation. Tricuspid Valve The tricuspid valve is normal in structure and function. There is mild tricuspid regurgitation. Pulmo nary artery systolic pressure is at least 32 mmHg if RA pressure is assumed 3 mmHg. Aortic Valve The aortic valve is normal in structure and function. No aortic regurgitation is present. Pulmonic Valve The pulmonic valve is not well visualized. Great Vessels The aortic root is normal size. Pericardium/Pleura There is no pericardial effusion. Interpretation Summary The left ventricle is normal in size. Left ventricular systolic function is normal. No regional wall motion abnormalities noted. Ejection Fraction = 65-70%. Grade I diastolic dysfunction, (abnormal relaxation pattern). Ratio E/E'= 10 The right ventricular systolic function is normal. The left atrial size is normal. Right atrial size is normal. Redundant interatrial septum There is mild mitral annular calcification. There is trace to mild mitral regurgitation. There is mild tricuspid regurgitation. There is no pericardial effusion. Nico Scales MD 02/04/2019 04:09 PM
[2019-02-04] MEDS: ATORVASTATIN CA 40 MG TABLET (FP) PO SCH (21:54)
--- NOTE | 2019-02-05 10:32 | PN ---
Progress Note, Physician Chief Complaint: sitting on bed No CP, SOB, palps TELE: NSR - Current Medication List Current Medications: Active Medications Aspirin (Asa -) 81 mg PO DAILY [facility] Last Admin: 02/04/19 09:10 Dose: 81 mg Atorvastatin Calcium (Lipitor -) 40 mg PO [facility] Last Admin: 02/04/19 21:54 Dose: 40 mg HCTZ/Losartan Potassium (Hyzaar -) 1 tab PO DAILY [facility] Last Admin: 02/04/19 09:10 Dose: 1 tab Metoprolol Succinate (Toprol Xl -) 25 mg PO [facility] Last Admin: 02/04/19 21:54 Dose: 25 mg Tamsulosin HCl (Flomax -) 0.4 mg PO DAILY@0830 [facility] Last Admin: 02/04/19 09:00 Dose: 0.4 mg - Objective Vital Signs: Vital Signs Temperature 98.8 F 02/05/19 06:00 Pulse Rate 80 02/05/19 06:00 Respiratory Rate 20 02/05/19 06:00 Blood Pressure 134/82 02/05/19 06:00 O2 Sat by Pulse Oximetry (%) 98 02/04/19 21:00 Constitutional: Yes: No Distress, Calm Eyes: Yes: Conjunctiva Clear Neck: Yes: Trachea Midline Cardiovascular: Yes: Regular Rate and Rhythm Respiratory: Yes: CTA Bilaterally Gastrointestinal: Yes: Soft (NT) Edema: No Peripheral Pulses WNL: Yes Neurological: Yes: Alert, Oriented ...Motor Strength: WNL Labs: CBC, BMP 02/04/19 12:00 02/04/19 12:00 INR, PTT INR 0.98 (0.83-1.09) 02/01/19 16:25 Laboratory Tests 02/03/19 02/03/19 02/03/19 06:10 14:50 19:35 WBC Hgb Plt Count Sodium Potassium BUN Creatinine Troponin I < 0.02 < 0.02 Cholesterol 243 H Total LDL Cholesterol 175 H 02/04/19 02/04/19 12:00 12:00 WBC 9.0 Hgb 14.1 Plt Count 357 Sodium 138 Potassium 3.9 BUN 22.8 H Creatinine 1.1 Troponin I Cholesterol Total LDL Cholesterol - ....Imaging EKG: Image Reviewed Assessment/Plan Assessment/Plan ECG #1: NSR. ? DC, ? RAA. mild flattened T waves lateral leads new vs 12/15. 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 atrial enlargement on ECG--not a new finding (seen on 12/15 tracing as well) -bp improved, continue present meds including low dose b-sara, at goal now -checking plasma fractionated metanephrines, 24 hr urine metanephrines/ catecholamines for pheo eval HPL: -LDL uncontrolled (170s) -on prava 40 at home--taking? 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 he verbalizes understanding (in [place]) and requests a letter for his employer, which i assured him would be provided. agrees to complete w/u with us as outpatient
[2019-02-05] MEDS: TAMSULOSIN HCL 0.4 MG CAP PO SCH (10:33)
[2019-02-05] MEDS: ASPIRIN 81 MG CHEWABLE TABLETS PO SCH (10:33)
[2019-02-05] MEDS: LOSARTAN 50MG/HCTZ 12.5MG 1 TAB (FP) PO SCH (10:33)
[2019-02-05 14:49] VITALS: BP 137/79; PULSE 91; TEMP 98.4
--- NOTE | 2019-02-05 16:22 | DS ---
Physical Exam: SUBJECTIVE: Patient seen and examined OBJECTIVE: Pt is a 68 yo M, PMHx of HLD, HTN, gastritis, s/p prostate biopsy with ecoli bacteremia on recent admission BIBA from work for syncope. 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 Per ED, co-workers noted him to have collapsed and unaware of his surroundings and they called for an ambulance. Pt reports taking natural supplements consistently in addition to his regular meds only adding the claritin D as a new med today. Denies fevers, chest pain, dysuria. Pt reports feeling fine. In the ED he was noted to have elevated BP with diastolic over 100, and pt reported taking his BP meds in am so did not receive any meds. Pt reports taking natural supplements including-turmeric curcumin, maximum strength green tea, cholestoff plus, flaxseed oil, centrum silver, prostate plus health complex, primal optimal vascular health. Patient for discharge home today and follow up with cardiology as an outpatient for possible loop recorder to monitor for arrhythmias. Patient is a business school dean and has been advised that he cannot return to work until evaluated/cleared by stripper opaquer as an outpatient. Vital Signs Period Temp Pulse Resp BP Sys/Crespo Pulse Ox Last 24 Hr 97.9 F-98.8 F 80-97 18-20 122-145/79-96 98 PHYSICAL EXAM Constitutional: Yes: Well Nourished, No Distress, Calm Eyes: Yes: WNL, Conjunctiva Clear HENT: Yes: WNL, Atraumatic, Normocephalic Neck: Yes: WNL, Supple, Trachea Midline Cardiovascular: Yes: WNL, Regular Rate and Rhythm Respiratory: Yes: WNL, Regular, CTA Bilaterally Gastrointestinal: Yes: WNL, Normal Bowel Sounds ...Rectal Exam: Yes: Deferred Genitourinary: Yes: WNL Breast(s): Yes: WNL Musculoskeletal: Yes: WNL Extremities: Yes: WNL Peripheral Pulses WNL: Yes Peripheral Pulses: Left Radial: 2+, Right Radial: 2+, Left Doralis Pedis: 2+, Right Dorsalis Pedis: 2+, Left Femoral: 2+, Right Femoral: 2+ Integumentary: Yes: WNL Neurological: Yes: WNL, Alert, Oriented ...Motor Strength: WNL Psychiatric: Yes: WNL LABS HOSPITAL COURSE: Date of Admission:02/02/19 Date of Discharge: 02/05/19 Minutes to complete discharge: 45 Discharge Summary Problems reviewed: Yes Reason For Visit: SYNCOPE/TACHYCARDIA Current Active Problems Acute metabolic encephalopathy (Acute) BPH (benign prostatic hyperplasia) (Acute) Gastritis (Acute) HLD (hyperlipidemia) (Acute) HTN (hypertension) (Acute) Prophylactic measure (Acute) Syncope (Acute) Tachycardia (Acute) Condition: Fair - Instructions Referrals: Dmitri Lema MD [Primary Care Provider] - Joseph Chirinos MD [Staff Physician] - Srinivasan Lindsay MD [Staff Physician] - Disposition: HOME - Home Medications Comprehensive Discharge Medication List: Ambulatory Orders Aspirin 81 mg PO DAILY 02/02/19 Losartan 50Mg/Hctz 12.5MG [Hyzaar -] 1 tab PO DAILY 02/02/19 Omeprazole 20 mg PO DAILY 02/02/19 Pravastatin Sodium [Pravachol] 40 mg PO HS 02/02/19 Tamsulosin HCl 0.4 mg PO HS 02/02/19 Atorvastatin Ca [Lipitor] 40 mg PO HS #90 tablet 02/05/19 Losartan 50Mg/Hctz 12.5MG [Hyzaar -] 1 tab PO DAILY tablet 02/05/19 Metoprolol Succinate [Toprol XL -] 25 mg PO HS #90 tab.sr.24h 02/05/19 Tamsulosin HCl [Flomax -] 0.4 mg PO DAILY@0830 #90 cap.er.24h 02/05/19 Problem List - Problems (1) MADISYN (acute kidney injury) Code(s): N17.9 - ACUTE KIDNEY FAILURE, UNSPECIFIED (2) Acute metabolic encephalopathy Code(s): G93.41 - METABOLIC ENCEPHALOPATHY (3) BPH (benign prostatic hyperplasia) Code(s): N40.0 - BENIGN PROSTATIC HYPERPLASIA WITHOUT LOWER URINRY TRACT SYMP (4) Gastritis Code(s): K29.70 - GASTRITIS, UNSPECIFIED, WITHOUT BLEEDING (5) HLD (hyperlipidemia) Code(s): E78.5 - HYPERLIPIDEMIA, UNSPECIFIED (6) HTN (hypertension) Code(s): I10 - ESSENTIAL (PRIMARY) HYPERTENSION (7) Prophylactic measure Code(s): Z29.9 - ENCOUNTER FOR PROPHYLACTIC MEASURES, UNSPECIFIED (8) Syncope Code(s): R55 - SYNCOPE AND COLLAPSE This patient is new to me today: Yes Date on this admission: 02/23/19 Emergency Visit: Yes ED Registration Date: 02/02/19 Care time: The patient presented to the Emergency Department on the above date and was hospitalized for further evaluation of their emergent condition. Critical Care patient: No - Discharge Referral Referred to [facility] Med P.C.: No
[2019-02-09 10:06] LABS: NORMETANEPHRINE 72 pg/mL (0-145)
[2019-02-09 10:06] LABS: NORMETANEPHRINE MG/L 220 ug/L (Undefined)
== END 2019-02-05 18:01 | disposition home or self-care (01) | DRG 312 ==
LOC: JER 15:51 → JERBED 19:59 → OBSVTOIN 02-02 00:03 → J4W 02-02 15:37
PROVIDERS: ADMIT Internal Medicine; ATTEND Nurse Practitioner Family
DX: R55 Syncope and collapse (principal); G93.41 Metabolic encephalopathy; E87.2 Acidosis; I67.4 Hypertensive encephalopathy; I10 Essential (primary) hypertension; R00.0 Tachycardia, unspecified; N40.0 Benign prostatic hyperplasia without lower urinary tract symptoms; E78.5 Hyperlipidemia, unspecified; Z86.73 Personal history of transient ischemic attack (TIA), and cerebral infarction without residual deficits; I51.89 Other ill-defined heart diseases; K29.70 Gastritis, unspecified, without bleeding
CPT/HCPCS: 36415; 36600; 70450-TC; 71045-TC-FY; 71275-TC; 74174-TC; 80053; 80061; 80307; 81003; 82384; 82550; 82607; 82803; 83036; 83605; 83721; 83735; 83835; 83880; 84100; 84443; 84484; 85025; 85610; 85730; 87086; 87804; 93005; 93010; 93306-TC; 99285-25; G0378; J7030; Q9967